=== PATIENT | male | born 1950 | race African-American/Black ===

== ENCOUNTER 2017-01-09 12:15 | Inpatient (IN) | payer SELFPAY ==
[2017-01-09] MEDS ORDERED: NITROGLYCERIN 0.4 MG/TAB 25 TAB/BOTTLE ONE ×2 (12:42→14:09)
[2017-01-09 13:04] LABS: ABSOLUTE EOSINOPHILS # (AUTO) 0.3 10^3/uL (0.0-0.6); ABSOLUTE LYMPHOCYTES (AUTO) 2.3 10^3/uL (0.5-4.7); ABSOLUTE MONOCYTES (AUTO) 0.3 10^3/uL (0.1-1.4); ABSOLUTE NEUT (AUTO) 1.7 10^3/uL (1.7-8.2); BASOPHILS % (AUTO) 1.1 % (0-2); EOSINOPHILS % (AUTO) 6.9 % (0-6); HEMATOCRIT 53.8 % (37.9-51.0); HEMOGLOBIN 17.8 g/dL (13.5-17.0); HGB HCT DIFFERENCE -0.4; LYMPHOCYTES % (AUTO) 48.7 % (13-45); MEAN CORPUSCULAR HEMOGLOBIN 28.4 pg (27.0-33.4); MEAN CORPUSCULAR HGB CONC 33.1 g/dL (32.0-36.0); MEAN CORPUSCULAR VOLUME 86 fl (80-97); MONOCYTES % (AUTO) 7.5 % (3-13); RED BLOOD COUNT 6.27 10^6/uL (4.35-5.55); RED CELL DISTRIBUTION WIDTH 14.7 % (11.5-14.0); SEGMENTED NEUTROPHILS % (AUTO) 35.8 % (42-78); WHITE BLOOD COUNT 4.6 10^3/uL (4.0-10.5)
[2017-01-09] MEDS ORDERED: NITROGLYCERIN 50 MG/D5W 250 ML IV PRN (13:10)
--- NOTE | 2017-01-09 13:17 | RADIOLOGY REPORT (SQ) ---
EXAM DESCRIPTION: CHEST SINGLE VIEW COMPLETED DATE/TIME: 01/09/2017 1:02 pm REASON FOR STUDY: CP COMPARISON: 02/07/2016. NUMBER OF VIEWS: One view. TECHNIQUE: Single frontal radiographic view of the chest acquired. LIMITATIONS: None. FINDINGS: LUNGS AND PLEURA: No opacities, masses or pneumothorax. No pleural effusion. MEDIASTINUM AND HILAR STRUCTURES: No masses. Contour normal. HEART AND VASCULAR STRUCTURES: Heart enlarged without failure. Normal vasculature. BONES: No acute findings. HARDWARE: Defibrillator. Sternotomy wires and coronary bypass markers. OTHER: No other significant finding. IMPRESSION: HEART ENLARGED WITHOUT FAILURE. NO CHANGE. TECHNICAL DOCUMENTATION: JOB ID: [id number] [employer]- All Rights Reserved
[2017-01-09 13:22] LABS: ALANINE AMINOTRANSFERASE 32 U/L (21-72); ALBUMIN 4.7 g/dL (3.5-5.0); ALKALINE PHOSPHATASE 73 U/L (38-126); ANION GAP 12 (5-19); ASPARTATE AMINO TRANSFERASE 24 U/L (17-59); BILIRUBIN,DIRECT 0.4 mg/dL (0.0-0.4); BILIRUBIN,TOTAL 0.9 mg/dL (0.2-1.3); BLOOD UREA NITROGEN 12 mg/dL (7-20); CALCIUM 9.4 mg/dL (8.4-10.2); CARBON DIOXIDE 21 mmol/L (22-30); CHLORIDE 107 mmol/L (98-107); CREATINE KINASE 192 U/L (55-170); CREATININE RESULT 1.31 mg/dL (0.52-1.25); GLUCOSE 99 mg/dL (75-110); POTASSIUM 4.5 mmol/L (3.6-5.0); TOTAL PROTEIN 8.5 g/dL (6.3-8.2)
[2017-01-09 13:34] LABS: CREATINE KINASE MB 2.83 ng/mL (<4.55); TROPONIN I 0.027 ng/mL
[2017-01-09 13:35] LABS: ARTERIAL BLOOD BASE EXCESS -2.1 mmol/L; ARTERIAL BLOOD O2 SATURATION 97.7 % (94-98)
[2017-01-09 13:53] LABS: THYROID STIMULATING HORMONE 2.4 uIU/mL (0.47-4.68)
[2017-01-09] MEDS ORDERED: METOPROLOL TARTRATE PF/INJ 5 MG/5 ML SDV IV ONE (14:07)
[2017-01-09] MEDS ORDERED: ASPIRIN 81 MG TABLET, CHEWABLE PO ONE (14:30)
[2017-01-09] MEDS ORDERED: CARVEDILOL 12.5 MG TABLET PO ONE (15:00)
[2017-01-09] MEDS ORDERED: AMLODIPINE BESYLATE 10 MG TABLET PO ONE (15:00)
[2017-01-09] MEDS ORDERED: ISOSORB DINIT/HYDRALAZINE HCL 20-37.5 MG TABLET PO ONE (15:00)
[2017-01-09] MEDS ORDERED: VALSARTAN 160 MG TABLET PO ONE (15:00)
[2017-01-09] MEDS: LANSOPRAZOLE 30 MG TAB.RAP.DR PO SCH (17:29)
[2017-01-09] MEDS ORDERED: ALBUTEROL SULFATE 0.083% NEB 2.5 MG/3 ML AMPUL NEB PRN ×2 (18:31→18:44)
--- NOTE | 2017-01-09 18:59 | EKG REPORT ---
SEVERITY:- ABNORMAL ECG - SINUS TACHYCARDIA VENTRICULAR PREMATURE COMPLEX RAJINDER, CONSIDER BIATRIAL ABNORMALITIES RBBB AND LPFB INFERIOR INFARCT, AGE INDETERMINATE : Confirmed by: Deepti Soto MD 09-Jan-2017 18:57:54
[2017-01-09] MEDS ORDERED: LISINOPRIL 10 MG TABLET PO ONE (19:00)
[2017-01-09] MEDS ORDERED: ASPIRIN 81 MG TABLET, ENT COATED PO ONE (19:00)
[2017-01-09] MEDS ORDERED: TICAGRELOR 90 MG TABLET PO ONE (19:00)
--- NOTE | 2017-01-09 19:34 | XCELERA REPORT ---
[address] [address] Transthoracic Echocardiogram Report Name: MALAIKA DIALLO JR Age: 66 yrs Gender: Male : 1950 Patient Status: Inpatient Patient Location: [id number]\S\336\[id number]\A Study Date: 01/09/2017 03:16 PM Height: 73 in Weight: 243 lb BSA: 2.3 m2 Procedure: A complete two-dimensional transthoracic echocardiogram was performed (2D, M-mode, spectral and color flow Doppler). The study was technically difficult with many images being suboptimal in quality. Reason For Study: CP, severe HTN Ordering Physician: ARIANA YBARRA Performed By: Tamica Hylton Interpretation Summary The Ejection Fraction estimate is 25-30% Left ventricular systolic function is severely reduced. There is moderate concentric left ventricular hypertrophy. The left ventricle is mildly dilated. Doppler measurements suggest pseudonormalized left ventricular relaxation, which is associated with grade II/IV or mild to moderate diastolic dysfunction There is severe global hypokinesis of the left ventricle. There is mid to distal anterior wall akinesis There is apical wall akinesis The right atrium is mildly dilated. The left atrium is severely dilated. There is a trace amount of mitral regurgitation There is no mitral valve stenosis. No aortic regurgitation is present. There is no aortic valve stenosis There is a trace or physiologic amount of tricuspid regurgitation Tricuspid regurgitation jet envelope not well defined to measure RV systolic pressure accurately. The aortic root is not well visualized but is probably normal size. The inferior vena cava appeared normal and decreased > 50% with respiration (RAP 5-10 mmHg) There is no pericardial effusion. MMode/2D Measurements \T\ Calculations RVDd: 3.1 cm LVIDd: 6.1 cm FS: 7.3 % Ao root diam: IVSd: 1.5 cm LVIDs: 5.7 cm EDV(Teich): 3.1 cm LVPWd: 1.3 cm 188.6 ml Ao root area: ESV(Teich): 158.4 ml 7.5 cm2 EF(Teich): 16.0 % LA dimension: 5.3 cm LVOT diam: LVLd ap4: 10.7 cm SV(MOD-sp4): 2.4 cm EDV(MOD-sp4): 77.0 ml LVOT area: 240.0 ml LVLs ap4: 9.9 cm 4.6 cm2 ESV(MOD-sp4): 163.0 ml EF(MOD-sp4): 32.1 % Doppler Measurements \T\ Calculations MV E max kenyatta: MV P1/2t max kenyatta: Ao V2 max: LV V1 max P.2 cm/sec 80.6 cm/sec 129.0 cm/sec 1.8 mmHg MV A max kenyatta: MV P1/2t: 45.6 msec Ao max PG: LV V1 max: 38.9 cm/sec MVA(P1/2t): 4.8 cm2 6.7 mmHg 67.5 cm/sec MV E/A: 2.1 MV dec slope: TJ(V,D): 2.4 cm2 517.7 cm/sec2 PA V2 max: 73.1 cm/sec PA max P.1 mmHg Left Ventricle The left ventricle is mildly dilated. There is moderate concentric left ventricular hypertrophy. Left ventricular systolic function is severely reduced. The Ejection Fraction estimate is 25-30%. Doppler measurements suggest pseudonormalized left ventricular relaxation, which is associated with grade II/IV or mild to moderate diastolic dysfunction. There is severe global hypokinesis of the left ventricle. There is mid to distal anterior wall akinesis. There is apical wall akinesis. Right Ventricle The right ventricle is grossly normal size. There is normal right ventricular wall thickness. The right ventricular systolic function is normal. Atria The right atrium is mildly dilated. The left atrium is severely dilated. Mitral Valve The mitral valve is grossly normal. There is no mitral valve stenosis. There is a trace amount of mitral regurgitation. Aortic Valve The aortic valve is grossly normal. There is no aortic valve stenosis. No aortic regurgitation is present. Tricuspid Valve The tricuspid valve is not well visualized, but is grossly normal. There is no tricuspid stenosis. There is a trace or physiologic amount of tricuspid regurgitation. Tricuspid regurgitation jet envelope not well defined to measure RV systolic pressure accurately. Pulmonic Valve The pulmonic valve is not well visualized. Great Vessels The aortic root is not well visualized but is probably normal size. The inferior vena cava appeared normal and decreased > 50% with respiration (RAP 5-10 mmHg). Effusions There is no pericardial effusion. Incidental Findings Pacemaker wire noted. : ARIANA YBARRA > Ariana Ybarra
[2017-01-09 21:07] LABS: CREATINE KINASE MB 2.75 ng/mL (<4.55)
[2017-01-09 21:12] LABS: TROPONIN I 0.131 ng/mL
[2017-01-09] MEDS: ATORVASTATIN CALCIUM 80 MG TABLET PO SCH (21:32)
[2017-01-09] MEDS: ISOSORB DINIT/HYDRALAZINE HCL 20-37.5 MG TABLET PO SCH (21:32)
[2017-01-09] MEDS: CARVEDILOL 12.5 MG TABLET PO SCH (21:33)
--- NOTE | 2017-01-09 21:42 | PDOC H&P ---
History of Present Illness Admission Date/PCP: 01/09/17 12:15 ROSALBA CARROLL MD History of Present Illness: Patient 66-year-old male with a known history of ischemic cardiomyopathy chronic chronic systolic heart failure, coronary artery disease status post multiple stents insertion, CABG AICD pacemaker placement he came to the office today because of chest pain and shortness of breath.He has no medical insurance and is not very compliant with care, in the office a 12-lead EKG was done it showed sinus rhythm with old inferior wall OR, right bundle branch block , there is no change from 2015 EKG he was admitted directly to the hospital for management Past Medical History Cardiac Medical History: Reports: Congestive Heart Failure, Coronary Artery Disease, Myocardial Infarction - six, Hyperlipidema, Hypertension Pulmonary Medical History: Reports: Asthma, Bronchitis, Chronic Obstructive Pulmonary Disease (COPD), Pneumonia Neurological Medical History: Denies: Seizures Endocrine Medical History: Reports: Diabetes Mellitus Type 2 GI Medical History: Reports: Gastroesophageal Reflux Disease Musculoskeltal Medical History: Denies: Arthritis Psychiatric Medical History: Denies: Depression Hematology: Denies: Anemia Past Surgical History Past Surgical History: Reports: Cardiac Catheterization, Coronary Artery Bypass Graft - x 3, Coronary Stent - x 8, Pacemaker, Tonsillectomy Social History Smoking Status: Never Smoker Frequency of Alcohol Use: None Hx Recreational Drug Use: No Hx Prescription Drug Abuse: No - Advance Directive Resuscitation Status: Full Code Family History Family History: Reviewed & Not Pertinent. denies: CAD Parental Family History Reviewed: Yes Children Family History Reviewed: Yes Sibling(s) Family History Reviewed.: Yes Medication/Allergy Home Medications: Albuterol Sulfate [Albuterol Sulfate 2.5mg/3 mL] 1 vial IH Q4 PRN 01/09/17 Aspirin [Aspirin EC] 81 mg PO DAILY 01/09/17 Carvedilol [Coreg 25 mg Tablet] 25 mg PO Q12 01/09/17 Lisinopril [Prinivil 40 mg Tablet] 40 mg PO DAILY 01/09/17 Nitroglycerin [Nitrostat] 0.4 mg SL PRN PRN 01/09/17 Ranolazine [Ranexa] 1,000 mg PO BID 01/09/17 Ticagrelor [Brilinta 90 mg Tablet] 90 mg PO BID 01/09/17 Allergies/Adverse Reactions: Iodinated Contrast- Oral and IV Dye [IV Dye, Iodine Containing] Allergy ( Verified 01/27/15 06:29) Review of Systems Constitutional: PRESENT: as per HPI Cardiovascular: PRESENT: chest pain, dyspnea on exertion, edema Respiratory: PRESENT: dyspnea Gastrointestinal: PRESENT: nausea Neurological: PRESENT: weakness Physical Exam Vital Signs: Temp Pulse Resp BP Pulse Ox 98.3 F 69 16 122/75 98 01/09/17 19:52 01/09/17 21:00 01/09/17 19:52 01/09/17 21:00 01/09/17 19:52 Intake & Output 01/08/17 01/09/17 01/10/17 06:59 06:59 06:59 Intake Total 300 Output Total 600 Balance -300 Weight 110.4 kg General appearance: PRESENT: severe distress Eye exam: PRESENT: PERRLA Respiratory exam: PRESENT: other - Diminished air entry Cardiovascular exam: PRESENT: +S1, +S2 GI/Abdominal exam: PRESENT: soft Neurological exam: PRESENT: alert, CN II-XII grossly intact Results Laboratory Results: 01/09/17 12:50 01/09/17 12:50 01/09/17 01/09/17 01/09/17 12:50 12:50 12:50 WBC 4.6 RBC 6.27 H Hgb 17.8 H Hct 53.8 H MCV 86 MCH 28.4 MCHC 33.1 RDW 14.7 H Plt Count 215 Seg Neutrophils % 35.8 L Lymphocytes % 48.7 H Monocytes % 7.5 Eosinophils % 6.9 H Basophils % 1.1 Absolute Neutrophils 1.7 Absolute Lymphocytes 2.3 Absolute Monocytes 0.3 Absolute Eosinophils 0.3 Absolute Basophils 0.0 Carbonic Acid HCO3/H2CO3 Ratio ABG pH ABG pCO2 ABG pO2 ABG HCO3 ABG O2 Saturation ABG Base Excess FiO2 Sodium 140.0 Potassium 4.5 Chloride 107 Carbon Dioxide 21 L Anion Gap 12 BUN 12 Creatinine 1.31 H Est GFR ( Amer) > 60 Est GFR (Non-Af Amer) 55 L Glucose 99 Calcium 9.4 Total Bilirubin 0.9 AST 24 ALT 32 Alkaline Phosphatase 73 Total Protein 8.5 H Albumin 4.7 TSH 2.40 Free T4 1.18 01/09/17 13:17 WBC RBC Hgb Hct MCV MCH MCHC RDW Plt Count Seg Neutrophils % Lymphocytes % Monocytes % Eosinophils % Basophils % Absolute Neutrophils Absolute Lymphocytes Absolute Monocytes Absolute Eosinophils Absolute Basophils Carbonic Acid 1.08 HCO3/H2CO3 Ratio 20:1 ABG pH 7.40 ABG pCO2 35.9 ABG pO2 100.8 H ABG HCO3 21.8 ABG O2 Saturation 97.7 ABG Base Excess -2.1 FiO2 4L NC Sodium Potassium Chloride Carbon Dioxide Anion Gap BUN Creatinine Est GFR ( Amer) Est GFR (Non-Af Amer) Glucose Calcium Total Bilirubin AST ALT Alkaline Phosphatase Total Protein Albumin TSH Free T4 01/09/17 01/09/17 01/09/17 12:50 12:50 12:50 Creatine Kinase 192 H 188 H CK-MB (CK-2) 2.83 Troponin I 0.027 01/09/17 01/09/17 20:30 20:30 Creatine Kinase 147 CK-MB (CK-2) 2.75 Troponin I 0.131 Impressions: Chest X-Ray 01/09/17 00:00 IMPRESSION: HEART ENLARGED WITHOUT FAILURE. NO CHANGE. Assessment & Plan - Diagnosis (1) Hypertensive emergency Plan: The blood pressure is severely elevated with evidence of end organ failure, he will be started on IV nitroglycerin infusion (2) Chest pain Qualifiers: Chest pain type: unspecified Qualified Code(s): R07.9 - Chest pain, unspecified Is this a current diagnosis for this admission?: Yes (3) Coronary artery disease Qualifiers: Coronary Disease-Associated Artery/Lesion type: unspecified vessel or lesion type Associated angina: angina presence unspecified Is this a current diagnosis for this admission?: Yes (4) Type 2 diabetes mellitus Qualifiers: Diabetes mellitus complication status: with unspecified complications Diabetes mellitus intermediate designer insulin use: without half-way use Qualified Code(s): E11.8 - Type 2 diabetes mellitus with unspecified complications; Z79.4 - correction (current) use of insulin Is this a current diagnosis for this admission?: Yes
[2017-01-09] MEDS ORDERED: ATORVASTATIN CALCIUM 40 MG TABLET PO SCH (22:00)
[2017-01-09] MEDS: ENOXAPARIN SODIUM INJ 100 MG/1 ML DISP.SYRIN SUBCUT SCH (22:26)
[2017-01-10 05:41] LABS: CREATINE KINASE MB 2.48 ng/mL (<4.55); TROPONIN I 0.098 ng/mL
[2017-01-10] MEDS: LANSOPRAZOLE 30 MG TAB.RAP.DR PO SCH ×2 (06:15→16:07)
[2017-01-10] MEDS: ISOSORB DINIT/HYDRALAZINE HCL 20-37.5 MG TABLET PO SCH ×3 (06:16→21:56)
[2017-01-10] MEDS ORDERED: VALSARTAN 160 MG TABLET PO SCH (10:00)
[2017-01-10] MEDS: AMLODIPINE BESYLATE 10 MG TABLET PO SCH (10:20)
[2017-01-10] MEDS: LISINOPRIL 10 MG TABLET PO SCH (10:20)
[2017-01-10] MEDS: ASPIRIN 81 MG TABLET, ENT COATED PO SCH (10:21)
[2017-01-10] MEDS: ENOXAPARIN SODIUM INJ 100 MG/1 ML DISP.SYRIN SUBCUT SCH ×2 (10:22→21:57)
[2017-01-10] MEDS: CARVEDILOL 12.5 MG TABLET PO SCH ×2 (10:22→21:55)
[2017-01-10] MEDS: TICAGRELOR 90 MG TABLET PO SCH ×2 (10:46→17:16)
--- NOTE | 2017-01-10 13:38 | PDOC CONSULTATION ---
Consultation Consult Date: 01/09/17 Attending physician:: ROSALBA CARROLL Consult reason:: Chest discomfort and shortness of breath History of Present Illness Admission Date/PCP: 01/09/17 12:15 ROSALBA CARROLL MD Patient complains of: Shortness of breath and chest discomfort History of Present Illness: Placido is a 65-year-old male with past medical history of coronary artery disease and ischemic cardiomyopathy as well as hypertension, diabetes, and hyperlipidemia who presents with several hours of left-sided chest pain. He described as a dull, throbbing, aching pain. It was improved and eventually relieved by multiple doses of nitroglycerin. Nothing was noted to worsen the pain when it was present. He was admitted directly from the office primary clinician with above complaint. He was also noted to have severe hypertension with systolic over 200 mmHg. Patient was started on nitroglycerin sublingual and subsequently on nitroglycerin drip. I entered multiple antihypertensive medication to be given. Please see orders. He notes associated dyspnea as well as nausea without vomiting. Past Medical History Cardiac Medical History: Reports: Congestive Heart Failure, Coronary Artery Disease, Myocardial Infarction - six, Hyperlipidema, Hypertension Pulmonary Medical History: Reports: Asthma, Bronchitis, Chronic Obstructive Pulmonary Disease (COPD), Pneumonia Neurological Medical History: Denies: Seizures Endocrine Medical History: Reports: Diabetes Mellitus Type 2 GI Medical History: Reports: Gastroesophageal Reflux Disease Musculoskeltal Medical History: Denies: Arthritis Psychiatric Medical History: Denies: Depression Hematology: Denies: Anemia Past Surgical History Past Surgical History: Reports: Cardiac Catheterization, Coronary Artery Bypass Graft - x 3, Coronary Stent - x 8, Pacemaker, Tonsillectomy Social History Information Source: Patient Smoking Status: Never Smoker Frequency of Alcohol Use: None Hx Recreational Drug Use: No Hx Prescription Drug Abuse: No - Advance Directive Resuscitation Status: Full Code Surrogate healthcare decision maker:: Patient spouse is the surrogate decision-maker Family History Family History: CAD, Hypertension Parental Family History Reviewed: Yes Children Family History Reviewed: Yes Sibling(s) Family History Reviewed.: Yes Medication/Allergy Home Medications: Albuterol Sulfate [Albuterol Sulfate 2.5mg/3 mL] 1 vial IH Q4 PRN 01/09/17 Aspirin [Aspirin EC] 81 mg PO DAILY 01/09/17 Carvedilol [Coreg 25 mg Tablet] 25 mg PO Q12 01/09/17 Lisinopril [Prinivil 40 mg Tablet] 40 mg PO DAILY 01/09/17 Nitroglycerin [Nitrostat] 0.4 mg SL PRN PRN 01/09/17 Ranolazine [Ranexa] 1,000 mg PO BID 01/09/17 Ticagrelor [Brilinta 90 mg Tablet] 90 mg PO BID 01/09/17 Allergies/Adverse Reactions: Iodinated Contrast- Oral and IV Dye [IV Dye, Iodine Containing] Allergy ( Verified 01/27/15 06:29) Review of Systems Review of Systems: Please see history of present illness and past medical history as wall. Constitutional: No fever or chills reported. Head : No recent chronic headaches, recent head injury. Eyes: No recent eye pain, diplopia, redness, discharge, acute visual changes. Ears: No recent chronic ear pain, acute hearing loss, ear discharge. Oral cavity: No recent ulcerations, bleeding, oral cavity discomfort. Neck: No recent acute neck pain reported. Hematologic: No recent easy bruising or bleeding or hematologic malignancy reported. Lymphatic: No recent lymphatic malignancy, chronic lymphadenopathy reported yet Cardiovascular system review: See history of present illness. Respiratory system review: No recent chronic cough, hemoptysis, blood clots in the lungs reported. Mild Shortness of breath on exertion Gastrointestinal system review: Negative for any recent acute or chronic abdominal pain, hematemesis, melena, recent change in bowel habits. Genitourinary system review: No recent acute or chronic hematuria, flank pain, UTI etc. reported. Skin system review: Negative for any recent abnormal bruising, no rash, no pruritus reported. Neurologic: No prior history of strokes, mini strokes, seizure disorder. Psychologic: No history of major psychosis or major depression reported. Musculoskeletal: Minor aches and pains reported. No acute joint swelling reported. Endocrine: No recent polyuria, polydipsia, recent heat or cold intolerance. Physical Exam Vital Signs: Temp Pulse Resp BP Pulse Ox 98.2 F 76 22 H 177/105 H 98 01/09/17 14:00 01/09/17 16:18 01/09/17 14:00 01/09/17 16:18 01/09/17 14:00 Intake & Output 01/08/17 01/09/17 01/10/17 06:59 06:59 06:59 Intake Total 300 Output Total 600 Balance -300 Weight 110.4 kg Exam: GENERAL: well-nourished and in no acute distress. Alert and oriented x3 HEAD: Atraumatic, normocephalic. EYES: Pupils equal round and reactive to light, extraocular movements intact, sclera anicteric, conjunctiva are normal. ENT: TMs normal, nares patent, oropharynx clear without exudates. Moist mucous membranes. No oral ulcerations or bleeding gums noted NECK: supple without lymphadenopathy. Trachea is central. No cervical or axillary lymphadenopathy noted. Carotids are 2+, JVD WNL LUNGS: Respiration seems nonlabored, no significant accessory muscle action noted. Bilateral fine basal crackles noted. No wheezes rales or rhonchi noted. No significant dullness noted on percussion. CHEST: Palpation of the chest wall shows no significant chest wall tenderness. No other significant abnormalities noted. HEART: [place] PROSTHODONTIST, No PSH, 1/6 SHAYLEE aortic area, 1/6 alcantar systolic murmur mitral area, no rubs, positive S3 gallops. ABDOMEN: Soft, no significant tenderness appreciated, normoactive bowel sounds. No guarding, no rebound. No rigidity noted . No masses appreciated. EXTREMITIES: Pedal pulses are 1-2+, no calf tenderness noted. No clubbing or cyanosis.trace to 1+ pedal edema noted NEUROLOGICAL: Focused neurological exam showed no significant neurologic deficit. Normal speech, no focal weakness appreciated. PSYCH: Normal mood, normal affect. Judgment and insight within normal limits. SKIN: No significant ecchymosis, rash, ulcerations or signs of pruritus noted. MUSCULOSKELETAL EXAM: No significant joint swelling noted. Results Laboratory Results: 01/09/17 12:50 01/09/17 12:50 01/09/17 01/09/17 01/09/17 12:50 12:50 12:50 WBC 4.6 RBC 6.27 H Hgb 17.8 H Hct 53.8 H MCV 86 MCH 28.4 MCHC 33.1 RDW 14.7 H Plt Count 215 Seg Neutrophils % 35.8 L Lymphocytes % 48.7 H Monocytes % 7.5 Eosinophils % 6.9 H Basophils % 1.1 Absolute Neutrophils 1.7 Absolute Lymphocytes 2.3 Absolute Monocytes 0.3 Absolute Eosinophils 0.3 Absolute Basophils 0.0 Carbonic Acid HCO3/H2CO3 Ratio ABG pH ABG pCO2 ABG pO2 ABG HCO3 ABG O2 Saturation ABG Base Excess FiO2 Sodium 140.0 Potassium 4.5 Chloride 107 Carbon Dioxide 21 L Anion Gap 12 BUN 12 Creatinine 1.31 H Est GFR ( Amer) > 60 Est GFR (Non-Af Amer) 55 L Glucose 99 Calcium 9.4 Total Bilirubin 0.9 AST 24 ALT 32 Alkaline Phosphatase 73 Total Protein 8.5 H Albumin 4.7 TSH 2.40 Free T4 1.18 01/09/17 13:17 WBC RBC Hgb Hct MCV MCH MCHC RDW Plt Count Seg Neutrophils % Lymphocytes % Monocytes % Eosinophils % Basophils % Absolute Neutrophils Absolute Lymphocytes Absolute Monocytes Absolute Eosinophils Absolute Basophils Carbonic Acid 1.08 HCO3/H2CO3 Ratio 20:1 ABG pH 7.40 ABG pCO2 35.9 ABG pO2 100.8 H ABG HCO3 21.8 ABG O2 Saturation 97.7 ABG Base Excess -2.1 FiO2 4L NC Sodium Potassium Chloride Carbon Dioxide Anion Gap BUN Creatinine Est GFR ( Amer) Est GFR (Non-Af Amer) Glucose Calcium Total Bilirubin AST ALT Alkaline Phosphatase Total Protein Albumin TSH Free T4 01/09/17 01/09/17 01/09/17 12:50 12:50 12:50 Creatine Kinase 192 H 188 H CK-MB (CK-2) 2.83 Troponin I 0.027 EKG Comments: Twelve-lead EKG shows sinus rhythm, right bundle branch block pattern, inferior Q waves suggestive of prior inferior myocardial infarction and occasional VPCs. EKG is felt to be relatively unchanged. Impressions: Chest X-Ray 01/09/17 00:00 IMPRESSION: HEART ENLARGED WITHOUT FAILURE. NO CHANGE. Assessment & Plan - Diagnosis (1) Hypertensive emergency Is this a current diagnosis for this admission?: Yes (2) Chest pain Qualifiers: Chest pain type: unspecified Qualified Code(s): R07.9 - Chest pain, unspecified Is this a current diagnosis for this admission?: Yes (3) Coronary artery disease Qualifiers: Coronary Disease-Associated Artery/Lesion type: unspecified vessel or lesion type Associated angina: angina presence unspecified Is this a current diagnosis for this admission?: Yes (4) Type 2 diabetes mellitus Qualifiers: Diabetes mellitus complication status: with unspecified complications Diabetes mellitus residential insulin use: without greeter guest services use Qualified Code(s): E11.8 - Type 2 diabetes mellitus with unspecified complications; Z79.4 - group home (current) use of insulin Is this a current diagnosis for this admission?: Yes (5) Cardiac defibrillator in situ Is this a current diagnosis for this admission?: Yes (6) Congestive heart failure Qualifiers: Congestive heart failure type: combined Congestive heart failure chronicity: acute on chronic Qualified Code(s): I50.43 - Acute on chronic combined systolic (congestive) and diastolic (congestive) heart failure Is this a current diagnosis for this admission?: Yes - Notes Notes: Hypertensive emergency: Patient was noted to have severe hypertension along with precipitation of chest pain. Patient placed on nitroglycerin drip. Multiple antihypertensives added. After several hours, blood pressure came to the normal range. Nitroglycerin drip was ordered to be discontinued. Coronary artery disease: Patient has significant CAD and is status post CABG and also multiple stent placement. Patient's medical regimen will be optimized. Patient will benefit from a nuclear stress test prior to discharge and this will be scheduled. This is needed because of presentation with chest pain and subsequent positive cardiac enzymes elevation. Congestive heart failure: This is related to systolic plus diastolic dysfunction. A stat echo performed was reviewed. Will recommend entresto therapy, beta-betito therapy and diuretics therapy. Patient will also benefit from salt and fluid restriction. Status post defibrillator placement: Patient claims defibrillator was placed in [place]. Last ICD battery change out was 3 years ago. Currently defibrillator seems to be functioning normally. Chest pain: Patient subsequently noted to have high troponin I. Patient will benefit from a ischemia workup. Chest pain probably precipitated by severe hypertension. Non-STEMI: Based on enzyme elevation and symptoms of chest discomfort patient seems to have sustained non-STEMI. Could have been precipitated by severe hypertension. Diabetes: Recommend good control of blood sugar. However should avoid any hypoglycemia. Patient being expertly managed by primary care M.D. - Time Time Spent: 50 to 70 Minutes - CODE STATUS was discussed, patient remains full code. Surrogate decision-maker unchanged. Multiple medical problems were addressed. More than 50% of the time spent coordinating care, discussing management plans with involved caregivers. Management plans discussed with involved personnels. Medical decision making was of moderate to high complexity , patient's has multiple comorbidities. Medications reviewed and adjusted accordingly: Yes
--- NOTE | 2017-01-10 13:41 | PDOC PROGRESS REPORT ---
Subjective Progress Note for:: 01/10/17 Subjective:: No chest pain or difficulty with breathing. No dizziness, headache, nausea or vomiting. No fever or chills. Physical Exam Vital Signs: Temp Pulse Resp BP Pulse Ox 98.0 F 79 16 122/79 100 01/10/17 08:11 01/10/17 08:11 01/10/17 08:11 01/10/17 08:11 01/10/17 08:11 Intake & Output 01/09/17 01/10/17 01/11/17 06:59 06:59 06:59 Intake Total 927 Output Total 600 Balance 327 Weight 109.3 kg General appearance: PRESENT: no acute distress, cooperative Head exam: PRESENT: atraumatic, normocephalic Eye exam: PRESENT: EOMI, PERRLA Mouth exam: PRESENT: moist Neck exam: PRESENT: full ROM. ABSENT: carotid bruit, JVD, lymphadenopathy, thyromegaly Respiratory exam: PRESENT: clear to auscultation yuly Cardiovascular exam: PRESENT: RRR. ABSENT: diastolic murmur, rubs, systolic murmur GI/Abdominal exam: PRESENT: normal bowel sounds, soft. ABSENT: distended, guarding, mass, organolmegaly, rebound, tenderness Extremities exam: ABSENT: pedal edema Musculoskeletal exam: PRESENT: deformity - related to joint arthritis involvement Neurological exam: PRESENT: alert, awake, oriented to person, oriented to place , oriented to time, oriented to situation, CN II-XII grossly intact. ABSENT: motor sensory deficit Psychiatric exam: PRESENT: appropriate affect, normal mood. ABSENT: homicidal ideation, suicidal ideation Skin exam: PRESENT: dry, intact, warm. ABSENT: cyanosis, rash Results Laboratory Results: 01/09/17 12:50 01/09/17 12:50 01/09/17 01/09/17 01/09/17 12:50 12:50 13:17 WBC 4.6 RBC 6.27 H Hgb 17.8 H Hct 53.8 H MCV 86 MCH 28.4 MCHC 33.1 RDW 14.7 H Plt Count 215 Seg Neutrophils % 35.8 L Lymphocytes % 48.7 H Monocytes % 7.5 Eosinophils % 6.9 H Basophils % 1.1 Absolute Neutrophils 1.7 Absolute Lymphocytes 2.3 Absolute Monocytes 0.3 Absolute Eosinophils 0.3 Absolute Basophils 0.0 Carbonic Acid 1.08 HCO3/H2CO3 Ratio 20:1 ABG pH 7.40 ABG pCO2 35.9 ABG pO2 100.8 H ABG HCO3 21.8 ABG O2 Saturation 97.7 ABG Base Excess -2.1 FiO2 4L NC TSH 2.40 Free T4 1.18 01/09/17 01/09/17 01/09/17 12:50 12:50 12:50 Creatine Kinase 192 H 188 H CK-MB (CK-2) 2.83 Troponin I 0.027 01/09/17 01/09/17 01/10/17 20:30 20:30 05:00 Creatine Kinase 147 159 CK-MB (CK-2) 2.75 Troponin I 0.131 01/10/17 05:00 Creatine Kinase CK-MB (CK-2) 2.48 Troponin I 0.098 Impressions: Chest X-Ray 01/09/17 00:00 IMPRESSION: HEART ENLARGED WITHOUT FAILURE. NO CHANGE. Assessment & Plan - Diagnosis (1) Chest pain Qualifiers: Chest pain type: unspecified Qualified Code(s): R07.9 - Chest pain, unspecified Is this a current diagnosis for this admission?: YesPlan: See covering attending physician orders. (2) Hypertensive emergency Is this a current diagnosis for this admission?: YesPlan: See covering attending physician orders. (3) Coronary artery disease Qualifiers: Coronary Disease-Associated Artery/Lesion type: unspecified vessel or lesion type Associated angina: angina presence unspecified Is this a current diagnosis for this admission?: YesPlan: See covering attending physician orders. (4) Type 2 diabetes mellitus Qualifiers: Diabetes mellitus complication status: with unspecified complications Diabetes mellitus salvage determiner insulin use: without senior living use Qualified Code(s): E11.8 - Type 2 diabetes mellitus with unspecified complications Is this a current diagnosis for this admission?: YesPlan: See covering attending physician orders. - Time Time Spent with patient: 25-34 minutes Medications reviewed and adjusted accordingly: Yes Anticipated discharge: Home Within: Other - Inpatient Certification Medical Necessity: Need Close Monitoring Due to Risk of Patient Decompensation, Need For IV Fluids, Need For Continuous Telemetry Monitoring, Risk of Complication if Not Cared For in Hospital Post Hospital Care: D/C Regulatory Compliance Coordinator Documentation - Plan Summary Plan Summary: See covering attending physician orders.
[2017-01-10] MEDS ORDERED: INSULIN LISPRO 100 UNIT/ML 3 ML VIAL SUBCUT PRN (13:46)
[2017-01-10] MEDS ORDERED: DEXTROSE 40% GEL 15 GM TUBE PO PRN ×2 (13:46)
[2017-01-10] MEDS ORDERED: GLUCAGON,HUMAN RECOMB 1 MG INJ IM PRN (13:46)
[2017-01-10] MEDS ORDERED: DEXTROSE 50%-WATER 25 GM/50 ML DISP.SYRIN IV PRN ×2 (13:46)
--- NOTE | 2017-01-10 15:14 | PDOC PROGRESS REPORT ---
Subjective Progress Note for:: 01/10/17 Subjective:: Patient seems to be doing better with gradual improvement. Pt is denying any chest arm or neck discomfort. Patient denying any PND, orthopnea. Patient denied any sustained palpitations, dizziness, syncope, near syncope. Patient denying any fever chills. Patient denying any other significant discomfort. Patient is maintaining sinus rhythm with ventricular paced beats. Review of systems: Rest review of systems negative. Medications: Medications have been reviewed. Physical Exam Vital Signs: Temp Pulse Resp BP Pulse Ox 98.0 F 79 16 122/79 100 01/10/17 08:11 01/10/17 08:11 01/10/17 08:11 01/10/17 08:11 01/10/17 08:11 Intake & Output 01/09/17 01/10/17 01/11/17 06:59 06:59 06:59 Intake Total 927 Output Total 600 Balance 327 Weight 109.3 kg Results Laboratory Results: 01/09/17 12:50 01/09/17 12:50 01/09/17 01/09/17 01/09/17 12:50 12:50 12:50 Creatine Kinase 192 H 188 H CK-MB (CK-2) 2.83 Troponin I 0.027 01/09/17 01/09/17 01/10/17 20:30 20:30 05:00 Creatine Kinase 147 159 CK-MB (CK-2) 2.75 Troponin I 0.131 01/10/17 05:00 Creatine Kinase CK-MB (CK-2) 2.48 Troponin I 0.098 EKG Comments: Showed sinus rhythm with right bundle branch block pattern, evidence of prior inferior myocardial infarction occasional VPCs noted Impressions: Chest X-Ray 01/09/17 00:00 IMPRESSION: HEART ENLARGED WITHOUT FAILURE. NO CHANGE. Assessment & Plan - Diagnosis (1) Hypertensive emergency Is this a current diagnosis for this admission?: Yes (2) Chest pain Qualifiers: Chest pain type: unspecified Qualified Code(s): R07.9 - Chest pain, unspecified Is this a current diagnosis for this admission?: Yes (3) Coronary artery disease Qualifiers: Coronary Disease-Associated Artery/Lesion type: unspecified vessel or lesion type Associated angina: angina presence unspecified Is this a current diagnosis for this admission?: Yes (4) Type 2 diabetes mellitus Qualifiers: Diabetes mellitus complication status: with unspecified complications Diabetes mellitus termite treater helper insulin use: without termite treater helper use Qualified Code(s): E11.8 - Type 2 diabetes mellitus with unspecified complications; Z79.4 - truck terminal manager (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) 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 Currently blood pressure under satisfactory control. Coronary artery disease: Patient has significant CAD and is status post CABG and also multiple stent placement. Patient's medical regimen will be optimized. Patient will benefit from a nuclear stress test prior to discharge and this will be scheduled. This is needed because of presentation with chest pain and subsequent positive cardiac enzymes elevation. Congestive heart failure: This seems clinically compensated by exam. This is related to systolic plus diastolic dysfunction. Echocardiogram shows systolic dysfunction as well as diastolic dysfunction without any significant valvular abnormalities.. Will recommend entresto therapy, beta-betito therapy and diuretics therapy. Patient will also benefit from salt and fluid restriction. Entresto therapy not to be started at this time as there is some concern about affordability by the patient. Status post defibrillator placement: Patient claims defibrillator was placed in [place]. Last ICD battery change out was 3 years ago. Currently defibrillator seems to be functioning normally. Chest pain: Currently chest pain-free. Patient subsequently noted to have high troponin I. Patient will benefit from a ischemia workup. Chest pain probably precipitated by severe hypertension. Non-STEMI: Based on enzyme elevation and symptoms of chest discomfort patient seems to have sustained non-STEMI. Could have been precipitated by severe hypertension. Diabetes: Recommend good control of blood sugar. However should avoid any hypoglycemia. Patient being expertly managed by primary care M.D. - Time Time with patient: Greater than 35 minutes - CODE STATUS was discussed, patient remains full code. Surrogate decision-maker unchanged. Multiple medical problems were addressed. More than 50% of the time spent coordinating care, discussing management plans with involved caregivers. Management plans discussed with involved personnels. Medical decision making was of moderate to high complexity, patient's has multiple comorbidities. Medications reviewed and adjusted accordingly: Yes
[2017-01-10] MEDS: ATORVASTATIN CALCIUM 80 MG TABLET PO SCH (21:57)
[2017-01-11] MEDS: ISOSORB DINIT/HYDRALAZINE HCL 20-37.5 MG TABLET PO SCH ×3 (06:03→23:00)
[2017-01-11] MEDS: LANSOPRAZOLE 30 MG TAB.RAP.DR PO SCH ×2 (06:03→16:50)
[2017-01-11 06:14] LABS: ABSOLUTE BASOPHILS # (AUTO) 0.1 10^3/uL (0.0-0.2); ABSOLUTE EOSINOPHILS # (AUTO) 0.2 10^3/uL (0.0-0.6); ABSOLUTE LYMPHOCYTES (AUTO) 1.5 10^3/uL (0.5-4.7); ABSOLUTE MONOCYTES (AUTO) 0.6 10^3/uL (0.1-1.4); ABSOLUTE NEUT (AUTO) 2.7 10^3/uL (1.7-8.2); BASOPHILS % (AUTO) 1.2 % (0-2); EOSINOPHILS % (AUTO) 4.8 % (0-6); HEMATOCRIT 49.3 % (37.9-51.0); HEMOGLOBIN 16.3 g/dL (13.5-17.0); HGB HCT DIFFERENCE -0.4; LYMPHOCYTES % (AUTO) 29.4 % (13-45); MEAN CORPUSCULAR HEMOGLOBIN 28.7 pg (27.0-33.4); MEAN CORPUSCULAR HGB CONC 33.1 g/dL (32.0-36.0); MEAN CORPUSCULAR VOLUME 87 fl (80-97); RED BLOOD COUNT 5.69 10^6/uL (4.35-5.55); RED CELL DISTRIBUTION WIDTH 14.5 % (11.5-14.0); SEGMENTED NEUTROPHILS % (AUTO) 53.6 % (42-78); WHITE BLOOD COUNT 5.1 10^3/uL (4.0-10.5)
[2017-01-11 06:27] LABS: ANION GAP 12 (5-19); BLOOD UREA NITROGEN 19 mg/dL (7-20); CALCIUM 9.4 mg/dL (8.4-10.2); CARBON DIOXIDE 23 mmol/L (22-30); CHLORIDE 107 mmol/L (98-107); CREATINE KINASE 116 U/L (55-170); CREATININE RESULT 1.46 mg/dL (0.52-1.25); Direct HDL 46 mg/dL (>40); GLUCOSE 102 mg/dL (75-110); POTASSIUM 4.3 mmol/L (3.6-5.0); SODIUM 142.1 mmol/L (137-145); TRIGLYCERIDES 124 mg/dL (<150)
[2017-01-11 06:38] LABS: DIRECT LDL 159 mg/dL (<100)
[2017-01-11 06:39] LABS: CREATINE KINASE MB 1.75 ng/mL (<4.55); TROPONIN I 0.071 ng/mL
[2017-01-11] MEDS: ENOXAPARIN SODIUM INJ 100 MG/1 ML DISP.SYRIN SUBCUT SCH ×2 (10:25→23:00)
[2017-01-11] MEDS: CARVEDILOL 12.5 MG TABLET PO SCH ×2 (10:29→23:04)
[2017-01-11] MEDS: ASPIRIN 81 MG TABLET, ENT COATED PO SCH (10:30)
[2017-01-11] MEDS: AMLODIPINE BESYLATE 10 MG TABLET PO SCH (10:30)
[2017-01-11] MEDS: LISINOPRIL 10 MG TABLET PO SCH (10:30)
[2017-01-11] MEDS: TICAGRELOR 90 MG TABLET PO SCH ×2 (11:43→17:58)
--- NOTE | 2017-01-11 13:15 | PDOC PROGRESS REPORT ---
Subjective Progress Note for:: 01/11/17 Subjective:: No chest pain or difficulty with breathing. No dizziness, headache, nausea or vomiting. No fever or chills. Physical Exam Vital Signs: Temp Pulse Resp BP Pulse Ox 98.0 F 63 16 139/73 H 100 01/11/17 11:40 01/11/17 11:40 01/11/17 11:40 01/11/17 11:40 01/11/17 11:40 Intake & Output 01/10/17 01/11/17 01/12/17 06:59 06:59 06:59 Intake Total 927 1080 350 Output Total 600 Balance 327 1080 350 Weight 109.3 kg 107.7 kg Physical Exam: General appearance: PRESENT: no acute distress, cooperative Head exam: PRESENT: atraumatic, normocephalic Eye exam: PRESENT: EOMI, PERRLA Mouth exam: PRESENT: moist Neck exam: PRESENT: full ROM. ABSENT: carotid bruit, JVD, lymphadenopathy, thyromegaly Respiratory exam: PRESENT: clear to auscultation yuly Cardiovascular exam: PRESENT: RRR. ABSENT: diastolic murmur, rubs, systolic murmur GI/Abdominal exam: PRESENT: normal bowel sounds, soft. ABSENT: distended, guarding, mass, organomegaly, rebound, tenderness Extremities exam: ABSENT: pedal edema Musculoskeletal exam: PRESENT: deformity - related to joint arthritis involvement Neurological exam: PRESENT: alert, awake, oriented to person, oriented to place , oriented to time, oriented to situation, CN II-XII grossly intact. ABSENT: motor sensory deficit Psychiatric exam: PRESENT: appropriate affect, normal mood. ABSENT: homicidal ideation, suicidal ideation Skin exam: PRESENT: dry, intact, warm. ABSENT: cyanosis, rash Results Laboratory Results: 01/11/17 06:02 01/11/17 06:02 01/11/17 01/11/17 06:02 06:02 WBC 5.1 RBC 5.69 H Hgb 16.3 Hct 49.3 MCV 87 MCH 28.7 MCHC 33.1 RDW 14.5 H Plt Count 164 Seg Neutrophils % 53.6 Lymphocytes % 29.4 Monocytes % 11.0 Eosinophils % 4.8 Basophils % 1.2 Absolute Neutrophils 2.7 Absolute Lymphocytes 1.5 Absolute Monocytes 0.6 Absolute Eosinophils 0.2 Absolute Basophils 0.1 Sodium 142.1 Potassium 4.3 Chloride 107 Carbon Dioxide 23 Anion Gap 12 BUN 19 Creatinine 1.46 H Est GFR ( Amer) 59 L Est GFR (Non-Af Amer) 49 L Glucose 102 Calcium 9.4 Triglycerides 124 Cholesterol 228.20 H LDL Cholesterol Direct 159 H VLDL Cholesterol 25.0 HDL Cholesterol 46 01/09/17 01/09/17 01/09/17 12:50 12:50 12:50 Creatine Kinase 192 H 188 H CK-MB (CK-2) 2.83 Troponin I 0.027 01/09/17 01/09/17 01/10/17 20:30 20:30 05:00 Creatine Kinase 147 159 CK-MB (CK-2) 2.75 Troponin I 0.131 01/10/17 01/11/17 01/11/17 05:00 06:02 06:02 Creatine Kinase 116 CK-MB (CK-2) 2.48 1.75 Troponin I 0.098 0.071 Impressions: Chest X-Ray 01/09/17 00:00 IMPRESSION: HEART ENLARGED WITHOUT FAILURE. NO CHANGE. Assessment & Plan - Diagnosis (1) Chest pain Qualifiers: Chest pain type: unspecified Qualified Code(s): R07.9 - Chest pain, unspecified Is this a current diagnosis for this admission?: Yes (2) Hypertensive emergency Is this a current diagnosis for this admission?: Yes (3) Coronary artery disease Qualifiers: Coronary Disease-Associated Artery/Lesion type: unspecified vessel or lesion type Associated angina: angina presence unspecified Is this a current diagnosis for this admission?: Yes (4) Type 2 diabetes mellitus Qualifiers: Diabetes mellitus complication status: with unspecified complications Diabetes mellitus intermediate accountant insulin use: without intermediate accountant use Qualified Code(s): E11.8 - Type 2 diabetes mellitus with unspecified complications; 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 Patient is schedule for pharmacologic stress test tomorrow. Continue all current medication management. - Time Time Spent with patient: 25-34 minutes Medications reviewed and adjusted accordingly: Yes Anticipated discharge: Home Within: Other - Inpatient Certification Medical Necessity: Need Close Monitoring Due to Risk of Patient Decompensation, Need For Continuous Telemetry Monitoring, Risk of Complication if Not Cared For in Hospital Post Hospital Care: D/C Cadastral Surveyor Documentation - Plan Summary Plan Summary: See covering attending physician orders.
--- NOTE | 2017-01-11 18:28 | PDOC PROGRESS REPORT ---
Subjective Progress Note for:: 01/11/17 Subjective:: Patient seems to be doing better with gradual improvement. Pt is denying any chest arm or neck discomfort. Patient denying any PND, orthopnea. Patient denied any sustained palpitations, dizziness, syncope, near syncope. Patient denying any fever chills. Patient denying any other significant discomfort. Patient is maintaining sinus rhythm with ventricular paced beats. Review of systems: Rest review of systems negative. Medications: Medications have been reviewed. Physical Exam Vital Signs: Temp Pulse Resp BP Pulse Ox 98.0 F 63 16 139/73 H 100 01/11/17 11:40 01/11/17 11:40 01/11/17 11:40 01/11/17 11:40 01/11/17 11:40 Intake & Output 01/10/17 01/11/17 01/12/17 06:59 06:59 06:59 Intake Total 927 1080 350 Output Total 600 Balance 327 1080 350 Weight 109.3 kg 107.7 kg Exam: GENERAL: well-nourished and in no acute distress. Alert and oriented x3 HEAD: Atraumatic, normocephalic. EYES: Pupils equal round and reactive to light, extraocular movements intact, sclera anicteric, conjunctiva are normal. ENT: TMs normal, nares patent, oropharynx clear without exudates. Moist mucous membranes. No oral ulcerations or bleeding gums noted NECK: supple without lymphadenopathy. Trachea is central. No cervical or axillary lymphadenopathy noted. Carotids are 2+, JVD 8-10 cm LUNGS: Respiration seems nonlabored, no significant accessory muscle action noted. Bibasilar fine crackles noted. No wheezes rales or rhonchi noted. No significant dullness noted on percussion. CHEST: Palpation of the chest wall shows no significant chest wall tenderness. No other significant abnormalities noted. HEART: [place] MECHANICAL EXPERT, No PSH, 1/6 SHAYLEE aortic area, 1/6 alcantar systolic murmur mitral area, no rubs, no gallops. ABDOMEN: Soft, no significant tenderness appreciated, normoactive bowel sounds. No guarding, no rebound. No rigidity noted . No masses appreciated. EXTREMITIES: Pedal pulses are 1-2+, no calf tenderness noted. No clubbing or cyanosis.trace to 1+ pedal edema noted NEUROLOGICAL: Focused neurological exam showed no significant neurologic deficit. Normal speech, no focal weakness appreciated. PSYCH: Normal mood, normal affect. Judgment and insight within normal limits. SKIN: No significant ecchymosis, rash, ulcerations or signs of pruritus noted. MUSCULOSKELETAL EXAM: No significant joint swelling noted. Results Laboratory Results: 01/11/17 06:02 01/11/17 06:02 01/11/17 01/11/17 06:02 06:02 WBC 5.1 RBC 5.69 H Hgb 16.3 Hct 49.3 MCV 87 MCH 28.7 MCHC 33.1 RDW 14.5 H Plt Count 164 Seg Neutrophils % 53.6 Lymphocytes % 29.4 Monocytes % 11.0 Eosinophils % 4.8 Basophils % 1.2 Absolute Neutrophils 2.7 Absolute Lymphocytes 1.5 Absolute Monocytes 0.6 Absolute Eosinophils 0.2 Absolute Basophils 0.1 Sodium 142.1 Potassium 4.3 Chloride 107 Carbon Dioxide 23 Anion Gap 12 BUN 19 Creatinine 1.46 H Est GFR ( Amer) 59 L Est GFR (Non-Af Amer) 49 L Glucose 102 Calcium 9.4 Triglycerides 124 Cholesterol 228.20 H LDL Cholesterol Direct 159 H VLDL Cholesterol 25.0 HDL Cholesterol 46 01/09/17 01/09/17 01/09/17 12:50 12:50 12:50 Creatine Kinase 192 H 188 H CK-MB (CK-2) 2.83 Troponin I 0.027 01/09/17 01/09/17 01/10/17 20:30 20:30 05:00 Creatine Kinase 147 159 CK-MB (CK-2) 2.75 Troponin I 0.131 01/10/17 01/11/17 01/11/17 05:00 06:02 06:02 Creatine Kinase 116 CK-MB (CK-2) 2.48 1.75 Troponin I 0.098 0.071 EKG Comments: Sinus rhythm. No sustained tachycardia or bradycardia arrhythmias noted. Impressions: Chest X-Ray 01/09/17 00:00 IMPRESSION: HEART ENLARGED WITHOUT FAILURE. NO CHANGE. Assessment & Plan - Diagnosis (1) NSTEMI (non-ST elevated myocardial infarction) Is this a current diagnosis for this admission?: Yes (2) Hypertensive emergency Is this a current diagnosis for this admission?: Yes (3) Chest pain Qualifiers: Chest pain type: unspecified Qualified Code(s): R07.9 - Chest pain, unspecified Is this a current diagnosis for this admission?: Yes (4) Coronary artery disease Qualifiers: Coronary Disease-Associated Artery/Lesion type: unspecified vessel or lesion type Associated angina: angina presence unspecified Is this a current diagnosis for this admission?: Yes (5) Type 2 diabetes mellitus Qualifiers: Diabetes mellitus complication status: with unspecified complications Diabetes mellitus assisted insulin use: without terminal system operator use Qualified Code(s): E11.8 - Type 2 diabetes mellitus with unspecified complications; Z79.4 - alf (current) use of insulin Is this a current diagnosis for this admission?: Yes (6) Cardiac defibrillator in situ Is this a current diagnosis for this admission?: Yes (7) Congestive heart failure Qualifiers: Congestive heart failure type: combined Congestive heart failure chronicity: acute on chronic Qualified Code(s): I50.43 - Acute on chronic combined systolic (congestive) and diastolic (congestive) heart failure Is this a current diagnosis for this admission?: Yes - Notes Notes: Non-STEMI: Based on enzyme elevation and symptoms of chest discomfort patient seems to have sustained non-STEMI. Could have been precipitated by severe hypertension. Cannot rule out component of ischemia. Patient to be scheduled for a nuclear stress test. Hypertensive emergency: Patient was noted to have severe hypertension on presentation along with precipitation of chest pain. Currently blood pressure under satisfactory control. Coronary artery disease: Patient has significant CAD and is status post CABG and also multiple stent placement. Patient's medical regimen will be optimized. Patient will benefit from a nuclear stress test prior to discharge and this will be scheduled. This is needed because of presentation with chest pain and subsequent positive cardiac enzymes elevation. Nuclear stress test has been scheduled for tomorrow. Congestive heart failure: This seems clinically compensated by exam. This is related to systolic plus diastolic dysfunction. Echocardiogram shows systolic dysfunction as well as diastolic dysfunction without any significant valvular abnormalities.. Will recommend entresto therapy, beta-betito therapy and diuretics therapy. Patient will also benefit from salt and fluid restriction. Entresto therapy not to be started at this time as there is some concern about affordability by the patient. Status post defibrillator placement: Patient claims defibrillator was placed in [place]. Last ICD battery change out was 3 years ago. Currently defibrillator seems to be functioning normally. Chest pain: Currently chest pain-free. Patient subsequently noted to have high troponin I. Patient will benefit from a ischemia workup. Chest pain probably precipitated by severe hypertension. Diabetes: Recommend good control of blood sugar. However should avoid any hypoglycemia. Patient being expertly managed by primary care M.D. - Time Time with patient: Greater than 35 minutes - CODE STATUS was discussed, patient remains full code. Surrogate decision-maker unchanged. Multiple medical problems were addressed. More than 50% of the time spent coordinating care, discussing management plans with involved caregivers. Management plans discussed with involved personnels. Medical decision making was of moderate to high complexity, patient's has multiple comorbidities. Nuclear stress test procedure was explained to the patient in detail. Risks benefits were discussed and informed consent was obtained. Alternatives were discussed. Patient informed that based on risk factors, physical exam, lab data findings and symptoms there is at least intermediate probability of progression of underlying CAD. Nuclear stress test procedure was therefore scheduled. Medications reviewed and adjusted accordingly: Yes
[2017-01-11] MEDS: ATORVASTATIN CALCIUM 80 MG TABLET PO SCH (23:01)
[2017-01-12] MEDS: ISOSORB DINIT/HYDRALAZINE HCL 20-37.5 MG TABLET PO SCH ×3 (06:23→22:28)
[2017-01-12] MEDS: LANSOPRAZOLE 30 MG TAB.RAP.DR PO SCH ×2 (06:23→17:08)
[2017-01-12] MEDS ORDERED: AMINOPHYLLINE INJ/PF 250 MG/10 ML SDV IV ONE (10:00)
[2017-01-12] MEDS ORDERED: REGADENOSON INJ 0.4 MG/5 ML DISP.SYRIN IV ONE (10:00)
[2017-01-12] MEDS: LISINOPRIL 10 MG TABLET PO SCH (10:50)
[2017-01-12] MEDS: ASPIRIN 81 MG TABLET, ENT COATED PO SCH (10:51)
[2017-01-12] MEDS: ENOXAPARIN SODIUM INJ 100 MG/1 ML DISP.SYRIN SUBCUT SCH ×2 (10:51→22:28)
[2017-01-12] MEDS: CARVEDILOL 12.5 MG TABLET PO SCH ×2 (10:51→22:28)
[2017-01-12] MEDS: AMLODIPINE BESYLATE 10 MG TABLET PO SCH (10:51)
[2017-01-12] MEDS: TICAGRELOR 90 MG TABLET PO SCH ×2 (11:44→17:09)
--- NOTE | 2017-01-12 14:09 | DRAGON STRESS TEST REPORT ---
INTRAVENOUS LEXISCAN CARDIOLITE STRESS TEST USING SINGLE PHOTON EMMISION COMPUTERIZED TOMOGRAPHIC. DATE OF PROCEDURE: January 12, 2017 INDICATION : Chest pain and non-STEMI CARDIAC RISK FACTORS: Severe hypertension, known CAD, diabetes, hypertension, dyslipidemia RESTING EKG: Sinus rhythm, abnormal Q waves inferior and lateral chest leads suggestive of prior myocardial infarction. STRESS EKG: No significant changes noted with LexiScan bolus REASON FOR TERMINATION: Protocol. PROCEDURE REPORT: Baseline heart rate 83 beats per minute with blood pressure of 107/80. Patient had no significant complaints. Heart rate at 2 minutes post bolus 108 with a blood pressure of 136/81. 3 minutes post bolus heart rate 90 with blood pressure of 135/75. No significant EKG changes were noted. Patient had no significant complaints during the procedure or postprocedure. Patient injected with Aminophyllin 75 mg at 3 minutes or later after Lexiscan bolus. CONCLUSIONS: Normal EKG and hemodynamic response to IV LexiScan. NUCLEAR DATA: At rest the patient was given 13.22 millicuries of technetium 99 sestamibi injected intravenously. As per protocol rest gated SPECT images were obtained. Subsequently the patient was given intravenous LexiScan at a dose of 0.4 mg in 5 mL intravenously, followed by flush with normal saline. Subsequently the stress dose of 42.8 millicuries of technetium 99 sestamibi was injected intravenously. As per protocol stress gated images were obtained. NUCLEAR INTERPRETATION: Both raw and processed data were used for interpretation. Visual, qualitative, computer-generated quantitative data was used. There was good myocardial uptake of technetium compound. Motion artifact and soft tissue attenuations were noted. Increased visceral uptake was noted. No definitive areas of transient perfusion defect noted. Severe fixed defect, indicative of severe scar noted involving the inferior, inferolateral and lateral wall of the left ventricle. EKG gated imaging showed LV EF at 18 %, rest and stress gated EF similar visually with diffuse hypokinesia and severe diffuse hypokinesia to akinesia of the inferior and inferolateral wall.. T. I D. ratio was 1.28. Lung heart ratio noted to be within normal limits 0.34. No significant extracardiac and abnormal radiotracer activities were noted. RV free wall uptake was noted to be wnl. IMPRESSION: Also refer to comments under nuclear interpretation. Also test results needs to be interpreted in the context of pretest probability. 1. There is no definitive scintigraphic evidence of LexiScan induced myocardial ischemia. 2. Severe fixed defect, indicative of severe scar noted involving the inferior , inferolateral and lateral wall of the left ventricle 3. EKG gated imaging shows left ejection fraction of approximately 18% with diffuse hypokinesia and severe diffuse hypokinesia to akinesia of the inferior and inferolateral wall. 4. Mild transient ischemic dilatation noted however could be related to LVH. Cannot rule out global ischemia but felt unlikely based on perfusion data. RECOMMENDATIONS: Aggressive risk factor modification, medical therapy. Low threshold for heart catheterization. Clinical correlation with echocardiogram derived ejection fraction. Inability to exercise by itself can lead to increased cardiovascular event risks. Consider cardiology consultation and or follow-up if clinically indicated. I AM AVAILABLE FOR CARDIOLOGY CONSULTATION AND FOLLOWUP IF REQUESTED BY PMD Ariana Vera M.D., PETE Speech And Language Assistant corporate aircraft mechanic, Board certified in cardiovascular diseases, Nuclear cardiology, Echocardiography Cardiac CT and cardiac MRI Ph. [phone] [place]
--- NOTE | 2017-01-12 19:43 | PDOC PROGRESS REPORT ---
Subjective Progress Note for:: 01/12/17 Subjective:: Patient seems to be doing better with gradual improvement. Pt is denying any chest arm or neck discomfort. Patient denying any PND, orthopnea. Patient denied any sustained palpitations, dizziness, syncope, near syncope. Patient denying any fever chills. Patient denying any other significant discomfort. In the morning nuclear stress test procedure was discussed. Risk benefits discussed. Patient gave informed consent. Patient is maintaining sinus rhythm with ventricular paced beats. Review of systems: Rest review of systems negative. Medications: Medications have been reviewed. Physical Exam Vital Signs: Temp Pulse Resp BP Pulse Ox 98.4 F 77 16 119/61 100 01/12/17 15:07 01/12/17 15:07 01/12/17 15:07 01/12/17 15:07 01/12/17 15:07 Intake & Output 01/11/17 01/12/17 01/13/17 06:59 06:59 06:59 Intake Total 1080 1358 869 Output Total 600 Balance 1080 1358 269 Weight 107.7 kg 108.4 kg Exam: GENERAL: well-nourished and in no acute distress. Alert and oriented x3 HEAD: Atraumatic, normocephalic. EYES: Pupils equal round and reactive to light, extraocular movements intact, sclera anicteric, conjunctiva are normal. ENT: TMs normal, nares patent, oropharynx clear without exudates. Moist mucous membranes. No oral ulcerations or bleeding gums noted NECK: supple without lymphadenopathy. Trachea is central. No cervical or axillary lymphadenopathy noted. Carotids are 2+, JVD WNL LUNGS: Respiration seems nonlabored, no significant accessory muscle action noted. Breath sounds clear to auscultation bilaterally and equal noted. No wheezes rales or rhonchi noted. No significant dullness noted on percussion. CHEST: Palpation of the chest wall shows no significant chest wall tenderness. No other significant abnormalities noted. Defibrillator noted left-sided chest. 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 ABDOMEN: Soft, no significant tenderness appreciated, normoactive bowel sounds. No guarding, no rebound. No rigidity noted . No masses appreciated. EXTREMITIES: Pedal pulses are 1-2+, no calf tenderness noted. No clubbing or cyanosis.trace to 1+ pedal edema noted NEUROLOGICAL: Focused neurological exam showed no significant neurologic deficit. Normal speech, no focal weakness appreciated. PSYCH: Normal mood, normal affect. Judgment and insight within normal limits. SKIN: No significant ecchymosis, rash, ulcerations or signs of pruritus noted. MUSCULOSKELETAL EXAM: No significant joint swelling noted. Results Laboratory Results: 01/11/17 06:02 01/11/17 06:02 01/09/17 01/09/17 01/09/17 12:50 12:50 12:50 Creatine Kinase 192 H 188 H CK-MB (CK-2) 2.83 Troponin I 0.027 01/09/17 01/09/17 01/10/17 20:30 20:30 05:00 Creatine Kinase 147 159 CK-MB (CK-2) 2.75 Troponin I 0.131 01/10/17 01/11/17 01/11/17 05:00 06:02 06:02 Creatine Kinase 116 CK-MB (CK-2) 2.48 1.75 Troponin I 0.098 0.071 EKG Comments: Telemetry strips reviewed. Showed sinus rhythm. No sustained tachycardia or bradycardia arrhythmias noted. Occasional PVCs noted. Impressions: Chest X-Ray 01/09/17 00:00 IMPRESSION: HEART ENLARGED WITHOUT FAILURE. NO CHANGE. Assessment & Plan - Diagnosis (1) NSTEMI (non-ST elevated myocardial infarction) Is this a current diagnosis for this admission?: Yes (2) Hypertensive emergency Is this a current diagnosis for this admission?: Yes (3) Chest pain Qualifiers: Chest pain type: unspecified Qualified Code(s): R07.9 - Chest pain, unspecified Is this a current diagnosis for this admission?: Yes (4) Coronary artery disease Qualifiers: Coronary Disease-Associated Artery/Lesion type: unspecified vessel or lesion type Associated angina: angina presence unspecified Is this a current diagnosis for this admission?: Yes (5) Type 2 diabetes mellitus Qualifiers: Diabetes mellitus complication status: with unspecified complications Diabetes mellitus intermediate insulin use: without intermediate use Qualified Code(s): E11.8 - Type 2 diabetes mellitus with unspecified complications; Z79.4 - correction (current) use of insulin Is this a current diagnosis for this admission?: Yes (6) Cardiac defibrillator in situ Is this a current diagnosis for this admission?: Yes (7) Congestive heart failure Qualifiers: Congestive heart failure type: combined Congestive heart failure chronicity: acute on chronic Qualified Code(s): I50.43 - Acute on chronic combined systolic (congestive) and diastolic (congestive) heart failure Is this a current diagnosis for this admission?: Yes - Notes Notes: Non-STEMI: Based on enzyme elevation and symptoms of chest discomfort patient seems to have sustained non-STEMI. Could have been precipitated by severe hypertension. Nuclear stress test shows mainly a severe fixed defect with no definitive transient perfusion defect. Borderline transient ischemic dilatation was noted but could well be related to LVH. Nonetheless, discussed that we could try medical management or send him for heart catheterization. Patient prefers to undergo medical management at this point. Patient was told that should he have any further chest pain while his blood pressure under satisfactory control then he should definitely consider undergoing heart catheterization. Right now mutual decision was made to treat patient with very aggressive risk factor modification and medical management. Hypertensive emergency: Patient was noted to have severe hypertension on presentation along with precipitation of chest pain. Currently blood pressure under satisfactory control. Coronary artery disease: Patient has significant CAD and is status post CABG and also multiple stent placement. Patient's medical regimen will be optimized. Nuclear stress test results were discussed with patient and his . Their questions were answered. Congestive heart failure: This seems clinically compensated by exam. This is related to systolic plus diastolic dysfunction. Echocardiogram shows systolic dysfunction as well as diastolic dysfunction without any significant valvular abnormalities.. Will recommend entresto therapy, beta-betito therapy and diuretics therapy. Patient will also benefit from salt and fluid restriction. Entresto therapy not to be started at this time as there is some concern about affordability by the patient. Status post defibrillator placement: Patient claims defibrillator was placed in [place]. Last ICD battery change out was 3 years ago. Currently defibrillator seems to be functioning normally. Chest pain: Currently chest pain-free. Patient subsequently noted to have high troponin I. Chest pain probably precipitated by severe hypertension. Patient to report any recurrence of chest pain. He was informed to inform the nurses. If he has any recurrent chest pain, will recommend transfer to tertiary care for heart Otherwise continue medical management. Diabetes: Recommend good control of blood sugar. However should avoid any hypoglycemia. Patient being expertly managed by primary care M.D. - Time Time with patient: Greater than 35 minutes - CODE STATUS was discussed, patient remains full code. Surrogate decision-maker unchanged. Multiple medical problems were addressed. More than 50% of the time spent coordinating care, discussing management plans with involved caregivers. Management plans discussed with involved personnels. Medical decision making was of high complexity, patient's has multiple comorbidities. Medications reviewed and adjusted accordingly: Yes
--- NOTE | 2017-01-12 20:37 | PDOC PROGRESS REPORT ---
Subjective Progress Note for:: 01/12/17 Subjective:: Patient was seen by the bedside he feels much better, he had a Cardiolite Lexiscan stress test done today, there was no scintigraphic evidence of reversible ischemia, it showed multiple old scars suggesting previous CO. Physical Exam Vital Signs: Temp Pulse Resp BP Pulse Ox 98.6 F 72 18 135/66 H 98 01/12/17 19:48 01/12/17 19:48 01/12/17 19:48 01/12/17 19:48 01/12/17 19:48 Intake & Output 01/11/17 01/12/17 01/13/17 06:59 06:59 06:59 Intake Total 1080 1358 869 Output Total 600 Balance 1080 1358 269 Weight 107.7 kg 108.4 kg General appearance: PRESENT: no acute distress, well-developed, well-nourished Head exam: PRESENT: atraumatic, normocephalic Eye exam: PRESENT: conjunctiva pink, EOMI, PERRLA. ABSENT: scleral icterus Ear exam: PRESENT: normal external ear exam Mouth exam: PRESENT: moist, tongue midline Neck exam: PRESENT: full ROM. ABSENT: carotid bruit, JVD, lymphadenopathy, thyromegaly Respiratory exam: PRESENT: clear to auscultation yuly Cardiovascular exam: PRESENT: RRR, +S1, +S2 Vascular exam: PRESENT: normal capillary refill GI/Abdominal exam: PRESENT: normal bowel sounds, soft Rectal exam: PRESENT: deferred Neurological exam: PRESENT: alert, awake, oriented to person, oriented to place , oriented to time, oriented to situation, CN II-XII grossly intact. ABSENT: motor sensory deficit Psychiatric exam: PRESENT: appropriate affect, normal mood. ABSENT: homicidal ideation, suicidal ideation Skin exam: PRESENT: dry, intact, warm. ABSENT: cyanosis, rash Results Laboratory Results: 01/11/17 06:02 01/11/17 06:02 01/09/17 01/09/17 01/09/17 12:50 12:50 12:50 Creatine Kinase 192 H 188 H CK-MB (CK-2) 2.83 Troponin I 0.027 01/09/17 01/09/17 01/10/17 20:30 20:30 05:00 Creatine Kinase 147 159 CK-MB (CK-2) 2.75 Troponin I 0.131 01/10/17 01/11/17 01/11/17 05:00 06:02 06:02 Creatine Kinase 116 CK-MB (CK-2) 2.48 1.75 Troponin I 0.098 0.071 Impressions: Chest X-Ray 01/09/17 00:00 IMPRESSION: HEART ENLARGED WITHOUT FAILURE. NO CHANGE. Assessment & Plan - Diagnosis (1) Hypertensive emergency Is this a current diagnosis for this admission?: Yes (2) Chest pain Qualifiers: Chest pain type: unspecified Qualified Code(s): R07.9 - Chest pain, unspecified Is this a current diagnosis for this admission?: Yes (3) Coronary artery disease Qualifiers: Coronary Disease-Associated Artery/Lesion type: unspecified vessel or lesion type Associated angina: angina presence unspecified Is this a current diagnosis for this admission?: Yes (4) Type 2 diabetes mellitus Qualifiers: Diabetes mellitus complication status: with unspecified complications Diabetes mellitus long-term insulin use: without long-term use Qualified Code(s): E11.8 - Type 2 diabetes mellitus with unspecified complications; Z79.4 - [facility] (current) use of insulin Is this a current diagnosis for this admission?: Yes
[2017-01-12] MEDS: ATORVASTATIN CALCIUM 80 MG TABLET PO SCH (22:27)
[2017-01-13] MEDS: LANSOPRAZOLE 30 MG TAB.RAP.DR PO SCH ×2 (05:07→17:05)
[2017-01-13] MEDS: ISOSORB DINIT/HYDRALAZINE HCL 20-37.5 MG TABLET PO SCH ×2 (05:07→14:22)
[2017-01-13] MEDS: ENOXAPARIN SODIUM INJ 100 MG/1 ML DISP.SYRIN SUBCUT SCH (10:19)
[2017-01-13] MEDS: LISINOPRIL 10 MG TABLET PO SCH (10:25)
[2017-01-13] MEDS: AMLODIPINE BESYLATE 10 MG TABLET PO SCH (10:28)
[2017-01-13] MEDS: CARVEDILOL 12.5 MG TABLET PO SCH (10:28)
[2017-01-13] MEDS: ASPIRIN 81 MG TABLET, ENT COATED PO SCH (10:28)
[2017-01-13] MEDS: TICAGRELOR 90 MG TABLET PO SCH ×2 (10:34→18:27)
[2017-01-13 18:08] VITALS: BP 119/71
--- NOTE | 2017-01-13 20:09 | PDOC PROGRESS REPORT ---
Subjective Progress Note for:: 01/13/17 Subjective:: Patient seems to be doing better with gradual improvement. Pt is denying any chest arm or neck discomfort. Patient denying any PND, orthopnea. Patient denied any sustained palpitations, dizziness, syncope, near syncope. Patient denying any fever chills. Patient denying any other significant discomfort. Nuclear stress test results were again reviewed with the patient. Patient denied any recurrence of chest pain. He was encouraged to ambulate in the hallway.. Patient is maintaining sinus rhythm with ventricular paced beats. Review of systems: Rest review of systems negative. Medications: Medications have been reviewed. Physical Exam Vital Signs: Temp Pulse Resp BP Pulse Ox 98.4 F 74 17 119/71 98 01/13/17 18:06 01/13/17 18:06 01/13/17 18:06 01/13/17 18:06 01/13/17 18:06 Intake & Output 01/12/17 01/13/17 01/14/17 06:59 06:59 06:59 Intake Total 1358 874 720 Output Total 600 Balance 1358 274 720 Weight 108.4 kg 108.6 kg Exam: GENERAL: well-nourished and in no acute distress. Alert and oriented x3 HEAD: Atraumatic, normocephalic. EYES: Pupils equal round and reactive to light, extraocular movements intact, sclera anicteric, conjunctiva are normal. ENT: TMs normal, nares patent, oropharynx clear without exudates. Moist mucous membranes. No oral ulcerations or bleeding gums noted NECK: supple without lymphadenopathy. Trachea is central. No cervical or axillary lymphadenopathy noted. Carotids are 2+, JVD WNL LUNGS: Respiration seems nonlabored, no significant accessory muscle action noted. Breath sounds clear to auscultation bilaterally and equal noted. No wheezes rales or rhonchi noted. No significant dullness noted on percussion. CHEST: Palpation of the chest wall shows no significant chest wall tenderness. No other significant abnormalities noted. Defibrillator noted on the left side chest. 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 ABDOMEN: Soft, no significant tenderness appreciated, normoactive bowel sounds. No guarding, no rebound. No rigidity noted . No masses appreciated. EXTREMITIES: Pedal pulses are 1-2+, no calf tenderness noted. No clubbing or cyanosis.trace to 1+ pedal edema noted NEUROLOGICAL: Focused neurological exam showed no significant neurologic deficit. Normal speech, no focal weakness appreciated. PSYCH: Normal mood, normal affect. Judgment and insight within normal limits. SKIN: No significant ecchymosis, rash, ulcerations or signs of pruritus noted. MUSCULOSKELETAL EXAM: No significant joint swelling noted. Results Laboratory Results: 01/11/17 06:02 01/11/17 06:02 01/09/17 01/09/17 01/09/17 12:50 12:50 12:50 Creatine Kinase 192 H 188 H CK-MB (CK-2) 2.83 Troponin I 0.027 01/09/17 01/09/17 01/10/17 20:30 20:30 05:00 Creatine Kinase 147 159 CK-MB (CK-2) 2.75 Troponin I 0.131 01/10/17 01/11/17 01/11/17 05:00 06:02 06:02 Creatine Kinase 116 CK-MB (CK-2) 2.48 1.75 Troponin I 0.098 0.071 EKG Comments: Telemetry strips shows sinus rhythm with occasional APCs and VPCs. Impressions: Chest X-Ray 01/09/17 00:00 IMPRESSION: HEART ENLARGED WITHOUT FAILURE. NO CHANGE. Assessment & Plan - Diagnosis (1) NSTEMI (non-ST elevated myocardial infarction) Is this a current diagnosis for this admission?: Yes (2) Hypertensive emergency Is this a current diagnosis for this admission?: Yes (3) Chest pain Qualifiers: Chest pain type: unspecified Qualified Code(s): R07.9 - Chest pain, unspecified Is this a current diagnosis for this admission?: Yes (4) Coronary artery disease Qualifiers: Coronary Disease-Associated Artery/Lesion type: unspecified vessel or lesion type Associated angina: angina presence unspecified Is this a current diagnosis for this admission?: Yes (5) Type 2 diabetes mellitus Qualifiers: Diabetes mellitus complication status: with unspecified complications Diabetes mellitus prison insulin use: without prison use Qualified Code(s): E11.8 - Type 2 diabetes mellitus with unspecified complications; Z79.4 - acetylene burner (current) use of insulin Is this a current diagnosis for this admission?: Yes (6) Cardiac defibrillator in situ Is this a current diagnosis for this admission?: Yes (7) Congestive heart failure Qualifiers: Congestive heart failure type: combined Congestive heart failure chronicity: acute on chronic Qualified Code(s): I50.43 - Acute on chronic combined systolic (congestive) and diastolic (congestive) heart failure Is this a current diagnosis for this admission?: Yes - Notes Notes: Non-STEMI: Currently is stable. Recent cardiac evaluations including nuclear stress test and also echocardiogram results were again discussed with the patient and his . They still prefer medical management. Patient was told that should he have any further chest pain while his blood pressure under satisfactory control then he should definitely consider undergoing heart catheterization. Hypertensive emergency: Patient was noted to have severe hypertension on presentation along with precipitation of chest pain. Currently blood pressure under satisfactory control. Compliance with medication as well as diet was emphasized to the patient. Coronary artery disease: Patient has significant CAD and is status post CABG and also multiple stent placement. Patient's medical regimen has been optimized. Nuclear stress test results were discussed with patient and his . Their questions were answered. Congestive heart failure: This seems clinically compensated by exam. This is related to systolic plus diastolic dysfunction. Echocardiogram shows systolic dysfunction as well as diastolic dysfunction without any significant valvular abnormalities.. Will recommend entresto therapy, beta-betito therapy and diuretics therapy. Patient will also benefit from salt and fluid restriction. Entresto therapy not to be started at this time as there is some concern about affordability by the patient. Entresto therapy should be considered as an outpatient once patient can afford it. Status post defibrillator placement: Patient claims defibrillator was placed in [place]. Last ICD battery change out was 3 years ago. Currently defibrillator seems to be functioning normally. Chest pain: Currently chest pain-free. Patient subsequently noted to have high troponin I. Chest pain probably precipitated by severe hypertension. Patient to report any recurrence of chest pain. He was informed to inform the nurses. If he has any recurrent chest pain, will recommend transfer to tertiary care for heart Otherwise continue medical management. Diabetes: Recommend good control of blood sugar. However should avoid any hypoglycemia. Patient being expertly managed by primary care M.DKain - Time Time with patient: 15-25 minutes - CODE STATUS was discussed, patient remains full code. Surrogate decision-maker unchanged. Multiple medical problems were addressed. More than 50% of the time spent coordinating care, discussing management plans with involved caregivers. Management plans discussed with involved personnels. Medical decision making was of moderate to high complexity , patient's has multiple comorbidities. Medications reviewed and adjusted accordingly: Yes
--- NOTE | 2017-01-13 21:04 | PDOC DISCHARGE SUMMARY ---
General - Admit/Disc Date/PCP Admission Date/Primary Care Provider: 01/10/17 13:44 ROSALBA CARROLL MD Discharge Date: 01/13/17 - Discharge Diagnosis (1) Hypertensive emergency Is this a current diagnosis for this admission?: Yes (2) Chest pain Is this a current diagnosis for this admission?: Yes (3) Coronary artery disease Is this a current diagnosis for this admission?: Yes (4) Type 2 diabetes mellitus Is this a current diagnosis for this admission?: Yes (5) Ischemic cardiomyopathy Is this a current diagnosis for this admission?: Yes (6) AICD (automatic cardioverter/defibrillator) present Is this a current diagnosis for this admission?: Yes - Additional Information Resuscitation Status: Full Code Discharge Diet: Cardiac Discharge Activity: Activity As Tolerated, Balance Activity w/Rest Home Medications: Albuterol Sulfate [Albuterol Sulfate 2.5mg/3 mL] 1 vial IH Q4 PRN #12 ml Aspirin [Aspirin EC] 81 mg PO DAILY #90 tablet.dr 01/13/17 Atorvastatin Calcium [Lipitor 80 mg Tablet] 80 mg PO QHS #90 tablet 01/13/17 Carvedilol [Coreg 25 mg Tablet] 25 mg PO Q12 #60 tablet 01/13/17 Isosorb Dinit/Hydralazine HCl [Bidil 20-37.5 mg Tablet] 1 tab PO Q8 #90 tablet 01/13/17 Lisinopril [Prinivil 40 mg Tablet] 40 mg PO DAILY #30 tablet 01/13/17 Nitroglycerin [Nitrostat] 0.4 mg SL PRN PRN #60 tab.subl 01/13/17 Ranolazine [Ranexa] 1,000 mg PO BID #60 tab.er.12h 01/13/17 Sitagliptin Phos/Metformin HCl [Janumet Xr 100-1,000 mg Tablet] 1 each PO DAILY #30 tbmp.24hr 01/13/17 Ticagrelor [Brilinta 90 mg Tablet] 90 mg PO BID #60 tablet 01/13/17 History of Present Illness History of Present Illness: Patient 66-year-old male with a known history of ischemic cardiomyopathy chronic chronic systolic heart failure, coronary artery disease status post multiple stents insertion, CABG AICD pacemaker placement he came to the office today because of chest pain and shortness of breath.He has no medical insurance and is not very compliant with care, in the office a 12-lead EKG was done it showed sinus rhythm with old inferior wall TX, right bundle branch block , there is no change from 2015 EKG he was admitted directly to the hospital for management Hospital Course Hospital Course: Patient was admitted for the evaluation of hypertensive emergency, he was very symptomatic with blood pressure above 200 systolic. He was treated with intravenous nitroglycerin infusion, he was seen by cardiology Dr. Vera, he underwent Cardiolite stress test, 2D echo. The Cardiolite stress test did not show any reversible ischemia, it showed old scars from previous myocardial infarction. 2D echo showed a very low ejection fraction of left ventricle but patient was clinically compensated and was not in clinical heart failure on this admission. Patient improved with management, he has a history of coronary artery disease with multiple stent placements he has no more room for cardiac intervention at this point is management is medical. Physical Exam Vital Signs: Temp Pulse Resp BP Pulse Ox 98.4 F 74 17 119/71 98 01/13/17 18:06 01/13/17 18:06 01/13/17 18:06 01/13/17 18:06 01/13/17 18:06 Intake & Output 01/12/17 01/13/17 01/14/17 06:59 06:59 06:59 Intake Total 1358 874 720 Output Total 600 Balance 1358 274 720 Weight 108.4 kg 108.6 kg General appearance: PRESENT: no acute distress, well-developed, well-nourished Head exam: PRESENT: atraumatic, normocephalic Eye exam: PRESENT: conjunctiva pink, EOMI, PERRLA. ABSENT: scleral icterus Ear exam: PRESENT: normal external ear exam Mouth exam: PRESENT: moist, tongue midline Neck exam: PRESENT: full ROM Cardiovascular exam: PRESENT: RRR, +S1, +S2 Pulses: PRESENT: normal dorsalis pedis pul, +2 pedal pulses bilateral Vascular exam: PRESENT: normal capillary refill GI/Abdominal exam: PRESENT: normal bowel sounds, soft Rectal exam: PRESENT: deferred Neurological exam: PRESENT: alert, awake, oriented to person, oriented to place , oriented to time, oriented to situation, CN II-XII grossly intact Psychiatric exam: PRESENT: appropriate affect, normal mood Skin exam: PRESENT: dry, intact, warm Results Laboratory Results: 01/11/17 06:02 01/11/17 06:02 01/09/17 01/09/17 01/09/17 12:50 12:50 12:50 Creatine Kinase 192 H 188 H CK-MB (CK-2) 2.83 Troponin I 0.027 01/09/17 01/09/17 01/10/17 20:30 20:30 05:00 Creatine Kinase 147 159 CK-MB (CK-2) 2.75 Troponin I 0.131 01/10/17 01/11/17 01/11/17 05:00 06:02 06:02 Creatine Kinase 116 CK-MB (CK-2) 2.48 1.75 Troponin I 0.098 0.071 Impressions: Chest X-Ray 01/09/17 00:00 IMPRESSION: HEART ENLARGED WITHOUT FAILURE. NO CHANGE.
== END 2017-01-13 19:00 | disposition home or self-care (01) | DRG 281 ==
LOC: 4N 12:15 → 3S 13:48 → OBSVTOIN 01-10 13:44
PROVIDERS: ADMIT Internal Medicine; ATTEND Internal Medicine
DX: I16.1 Hypertensive emergency (principal); I21.4 Non-ST elevation (NSTEMI) myocardial infarction; I50.42 Chronic combined systolic (congestive) and diastolic (congestive) heart failure; I25.10 Atherosclerotic heart disease of native coronary artery without angina pectoris; I11.0 Hypertensive heart disease with heart failure; E11.9 Type 2 diabetes mellitus without complications; I25.5 Ischemic cardiomyopathy; E78.5 Hyperlipidemia, unspecified; J44.9 Chronic obstructive pulmonary disease, unspecified; J45.909 Unspecified asthma, uncomplicated; K21.9 Gastro-esophageal reflux disease without esophagitis; Z95.810 Presence of automatic (implantable) cardiac defibrillator; Z95.5 Presence of coronary angioplasty implant and graft; Z91.19 Patient's noncompliance with other medical treatment and regimen; Z59.9 Problem related to housing and economic circumstances, unspecified; I25.2 Old myocardial infarction; Z82.49 Family history of ischemic heart disease and other diseases of the circulatory system; Z91.041 Radiographic dye allergy status; Z79.82 Long term (current) use of aspirin; Z79.899 Other long term (current) drug therapy; Z79.4 Long term (current) use of insulin
CPT/HCPCS: 36415; 36600; 71010; 78452; 80048; 80061; 80076; 82550; 82553; 82803; 82962; 83036; 84439; 84443; 84484; 85025; 85379; 93005; 93010; 93017; 93306; A9500; G0378; G0379; J0280; J1650; J2785; J3490; Q9969

== ENCOUNTER 2017-08-04 14:52 | Inpatient (IN) | payer MEDICAID, MEDICARE ==
--- NOTE | 2017-08-04 15:14 | ER Document Report ---
ED Respiratory Problem - General Chief Complaint: Shortness Of Breath Stated Complaint: SHORTNESS OF BREATH Time Seen by Provider: 08/04/17 14:58 Notes: The patient is a 67-year-old male, past medical history CHF, HTN, CAD, presents after an episode of mild chest pressure this morning that began at rest. He was also having some shortness of breath. Patient took 2 nitro and his chest pain went away, but he is still feeling short of breath. EMS placed him on 1 L nasal cannula and he feels much better. TRAVEL OUTSIDE OF THE [place] IN LAST 30 DAYS: No - Related Data Allergies/Adverse Reactions: Iodinated Contrast- Oral and IV Dye [IV Dye, Iodine Containing] Allergy ( Verified 01/27/15 06:29) Past Medical History - General Information source: Patient - Social History Smoking Status: Unknown if Ever Smoked Family History: Reviewed & Not Pertinent. denies: CAD - Past Medical History Cardiac Medical History: Reports: Hx Congestive Heart Failure, Hx Coronary Artery Disease, Hx Heart Attack - six, Hx Hypercholesterolemia, Hx Hypertension Pulmonary Medical History: Reports: Hx Asthma, Hx Bronchitis, Hx COPD, Hx Pneumonia Neurological Medical History: Reports: Hx Cerebrovascular Accident - 2010. Denies: Hx Seizures Endocrine Medical History: Reports: Hx Diabetes Mellitus Type 2 Renal/ Medical History: Reports: Hx Benign Prostatic Hyperplasia GI Medical History: Reports: Hx Gastroesophageal Reflux Disease Musculoskeltal Medical History: Denies Hx Arthritis Psychiatric Medical History: Denies: Hx Depression Past Surgical History: Reports: Hx Abdominal Surgery - hernia, Hx Cardiac Catheterization, Hx Cardiac Surgery - 8 stents, bypass sx, defibrilator, Hx Coronary Artery Bypass Graft - x 3, Hx Coronary Stent - x 8, Hx Pacemaker, Hx Tonsillectomy - Immunizations Immunizations up to date: Yes Hx Diphtheria, Pertussis, Tetanus Vaccination: Yes Hx Pneumococcal Vaccination: 01/30/14 Review of Systems - Review of Systems Notes: REVIEW OF SYSTEMS: CONSTITUTIONAL: -fevers, -chills EENT: -eye pain, -difficulty swallowing, -nasal congestion CARDIOVASCULAR: +chest pain, -syncope. RESPIRATORY: -cough, +SOB GASTROINTESTINAL: -abdominal pain, -nausea, -vomiting, -diarrhea GENITOURINARY: -dysuria, -hematuria MUSCULOSKELETAL: -back pain, -neck pain SKIN: -rash or skin lesions. HEMATOLOGIC: -easy bruising or bleeding. LYMPHATIC: -swollen, enlarged glands. NEUROLOGICAL: -altered mental status or loss of consciousness, -headache, - neurologic symptoms PSYCHIATRIC: -anxiety, -depression. ALL OTHER SYSTEMS REVIEWED AND NEGATIVE. Physical Exam - Vital signs Vitals: Pulse Ox 99 08/04/17 15:14 - Notes Notes: PHYSICAL EXAMINATION: GENERAL: Well-appearing, well-nourished and in no acute distress. HEAD: Atraumatic, normocephalic. EYES: Pupils equal round and reactive to light, extraocular movements intact, sclera anicteric, conjunctiva are normal. ENT: nares patent, oropharynx clear without exudates. Moist mucous membranes. NECK: Normal range of motion, supple without lymphadenopathy LUNGS: Breath sounds clear to auscultation bilaterally and equal. No wheezes rales or rhonchi. HEART: Regular rate and rhythm without murmurs ABDOMEN: Soft, nontender, normoactive bowel sounds. No guarding, no rebound. No masses appreciated. EXTREMITIES: Normal range of motion, no pitting or edema. No cyanosis. NEUROLOGICAL: Cranial nerves grossly intact. Normal speech, normal gait. Normal sensory and motor exams. PSYCH: Normal mood, normal affect. SKIN: Warm, Dry, normal turgor, no rashes or lesions noted. Course - Re-evaluation Re-evalutation: Patient with chest pain and shortness of breath that resolved after a nitro and aspirin. Patient's blood pressure remained in the 220s/140s. With the elevated troponin, but no EKG changes, suspect hypertensive emergency. Patient was placed on a nitro drip with improvement of his blood pressure, SOB and chest pain. Repeat troponin did not increase. Patient's last stress test was 9 months ago. With his multiple comorbidities, patient requires admission for further evaluation and treatment of his chest pain, shortness of breath and hypertension. He remains on a nitro drip. His primary care physician is Dr. Rodrigues. 08/04/17 18:[address] Rodrigues and awaiting callback. 08/04/17 19:[address] Rodrigues and will admit patient as inpatient to [facility] for further evaluation his chest pain and hypertensive emergency. - Vital Signs Vital signs: Temp Pulse Resp BP Pulse Ox 17 149/95 H 98 08/04/17 19:20 08/04/17 19:20 08/04/17 19:20 - Laboratory Result Diagrams: 08/04/17 14:40 08/04/17 14:40 Laboratory results interpreted by me: 08/04/17 08/04/17 08/04/17 14:40 14:40 14:40 RBC 6.22 H Hgb 17.9 H Hct 53.2 H RDW 14.9 H Eosinophils % 7.0 H Creatinine 1.30 H Est GFR (Non-Af Amer) 55 L Direct Bilirubin 0.6 H NT-Pro-B Natriuret Pep 1830 H Total Protein 8.4 H - Diagnostic Test Radiology reviewed: Image reviewed, Reports reviewed Radiology results interpreted by me: CXR: stable cardiomegaly, no active pulmonary disease - EKG Interpretation by Me EKG shows normal: Sinus rhythm Rate: Normal [place]/QRS: IVCD When compared to previous EKG there are: No significant change Critical Care Note - Critical Care Note Total time excluding time spent on procedures (mins): 45 Discharge - Discharge Clinical Impression: Hypertensive emergency Chest pain Qualifiers: Chest pain type: unspecified Qualified Code(s): R07.9 - Chest pain, unspecified Condition: Stable Disposition: ADMITTED INPATIENT Admitting Provider: [facility] Admitted: [facility]
[2017-08-04 15:22] LABS: ABSOLUTE EOSINOPHILS # (AUTO) 0.3 10^3/uL (0.0-0.6); ABSOLUTE LYMPHOCYTES (AUTO) 1.6 10^3/uL (0.5-4.7); ABSOLUTE MONOCYTES (AUTO) 0.5 10^3/uL (0.1-1.4); BASOPHILS % (AUTO) 0.8 % (0-2); HEMATOCRIT 53.2 % (37.9-51.0); HEMOGLOBIN 17.9 g/dL (13.5-17.0); MEAN CORPUSCULAR HEMOGLOBIN 28.8 pg (27.0-33.4); MEAN CORPUSCULAR HGB CONC 33.7 g/dL (32.0-36.0); MEAN CORPUSCULAR VOLUME 86 fl (80-97); MONOCYTES % (AUTO) 10.5 % (3-13); PLATELET COUNT 191 10^3/uL (150-450); RED BLOOD COUNT 6.22 10^6/uL (4.35-5.55); RED CELL DISTRIBUTION WIDTH 14.9 % (11.5-14.0); SEGMENTED NEUTROPHILS % (AUTO) 45.7 % (42-78); TOTAL CELLS COUNTED % (AUTO) 100 %; WHITE BLOOD COUNT 4.4 10^3/uL (4.0-10.5)
--- NOTE | 2017-08-04 15:32 | RADIOLOGY REPORT (SQ) ---
EXAM DESCRIPTION: CHEST SINGLE VIEW COMPLETED DATE/TIME: 08/04/2017 3:20 pm REASON FOR STUDY: SOB COMPARISON: 01/09/2017 EXAM PARAMETERS: NUMBER OF VIEWS: One view. TECHNIQUE: Single frontal radiographic view of the chest acquired. RADIATION DOSE: NA LIMITATIONS: None. FINDINGS: LUNGS AND PLEURA: No opacities, masses or pneumothorax. No pleural effusion. MEDIASTINUM AND HILAR STRUCTURES: No masses. Contour normal. HEART AND VASCULAR STRUCTURES: Stable cardiomegaly BONES: No acute findings. HARDWARE: Pacing defibrillator leads intact. Midline sternotomy wires. OTHER: No other significant finding. IMPRESSION: Stable cardiomegaly. No active pulmonary disease. TECHNICAL DOCUMENTATION: JOB ID: [id number] [employer]- All Rights Reserved
[2017-08-04 15:44] LABS: ALANINE AMINOTRANSFERASE 36 U/L (21-72); ALBUMIN 4.9 g/dL (3.5-5.0); ALKALINE PHOSPHATASE 61 U/L (38-126); ANION GAP 15 (5-19); ASPARTATE AMINO TRANSFERASE 26 U/L (17-59); BILIRUBIN,DIRECT 0.6 mg/dL (0.0-0.4); BILIRUBIN,TOTAL 1.3 mg/dL (0.2-1.3); BLOOD UREA NITROGEN 15 mg/dL (7-20); CALCIUM 10.1 mg/dL (8.4-10.2); CARBON DIOXIDE 24 mmol/L (22-30); CHLORIDE 104 mmol/L (98-107); CREATINE KINASE 152 U/L (55-170); GLUCOSE 93 mg/dL (75-110); POTASSIUM 4.2 mmol/L (3.6-5.0); SODIUM 142.9 mmol/L (137-145); TOTAL PROTEIN 8.4 g/dL (6.3-8.2)
[2017-08-04 15:59] LABS: TROPONIN I 0.132 ng/mL
[2017-08-04] MEDS ORDERED: NITROGLYCERIN/D5W 50 MG/250 ML RTUINJ IV PRN (16:48)
[2017-08-04] MEDS ORDERED: ASPIRIN 81 MG TABLET, CHEWABLE PO ONE (16:48)
[2017-08-04] MEDS ORDERED: NITROGLYCERIN/D5W 50 MG/250 ML RTUINJ IV ONE (16:50)
[2017-08-04] MEDS ORDERED: IPRATROPIUM/ALBUTEROL 0.5-2.5 MG/3 ML AMPUL NEB ONE (17:19)
[2017-08-04 17:46] LABS: VENOUS BLOOD BASE EXCESS -2.2 mmol/L; VENOUS BLOOD HCO3 22.9 mmol/L (20-32); VENOUS BLOOD PCO2 40.6 mmHg (35-63); VENOUS BLOOD PH 7.37 (7.30-7.42)
--- NOTE | 2017-08-04 18:47 | EKG REPORT ---
SEVERITY:- ABNORMAL ECG - SINUS RHYTHM LEFT ATRIAL ABNORMALITY NONSPECIFIC INTRAVENTRICULAR CONDUCTION DELAY PROBABLE INFERIOR INFARCT, AGE INDETERMINATE BORDERLINE R WAVE PROGRESSION, ANTERIOR LEADS , CONSIDER OLD ANTERIOR WA LEFT POST FASCICULAR BLOCK : Confirmed by: Chidi Blake MD 04-Aug-2017 18:46:53
[2017-08-04] MEDS ORDERED: (PENDING PHARMACY ID) (Ranolazine [Ranexa] 1,000 MG) PO SCH (21:30)
[2017-08-04] MEDS ORDERED: (PENDING PHARMACY ID) (Carvedilol [Coreg 25 Mg Tablet] 1 TAB) PO SCH (21:30)
[2017-08-04] MEDS ORDERED: (PENDING PHARMACY ID) (Sitagliptin Phos/Metformin Hcl [Janumet 50-1,000 Mg Tablet] 1 EACH) PO SCH (21:30)
[2017-08-04] MEDS ORDERED: (PENDING PHARMACY ID) (Lisinopril [Zestril] 40 MG) PO SCH (21:30)
[2017-08-04 21:44] LABS: LIPASE 87.6 U/L (23-300); PHOSPHORUS 3.5 mg/dL (2.5-4.5)
[2017-08-04] MEDS ORDERED: SITAGLIPTIN PHOSPHATE 50 MG TABLET PO ONE (22:00)
[2017-08-04] MEDS ORDERED: METFORMIN HCL 500 MG TABLET PO ONE (22:00)
[2017-08-04] MEDS ORDERED: LISINOPRIL 10 MG TABLET PO ONE (22:00)
[2017-08-04] MEDS ORDERED: ISOSORBIDE MONONITRATE 30 MG TAB.ER.24H PO ONE (22:00)
[2017-08-04] MEDS ORDERED: TICAGRELOR 90 MG TABLET PO ONE (22:00)
[2017-08-04 22:01] LABS: FREE T4 (FREE THYROXINE) 1.24 ng/dL (0.78-2.19)
[2017-08-04 22:13] LABS: CREATINE KINASE MB 1.44 ng/mL (<4.55); TROPONIN I 0.136 ng/mL
[2017-08-04 22:15] LABS: THYROID STIMULATING HORMONE 2.35 uIU/mL (0.47-4.68)
[2017-08-04 22:30] LABS: INTERNATIONAL RATION (INR) 1.11; PROTHROMBIN TIME 15.1 SEC (11.4-15.4)
[2017-08-04 22:31] LABS: PARTIAL THROMBOPLASTIN TIME 28.3 SEC (23.5-35.8)
[2017-08-05] MEDS: RANOLAZINE 500 MG TAB.SR.12H PO SCH ×3 (01:43→21:18)
[2017-08-05] MEDS: ATORVASTATIN CALCIUM 40 MG TABLET PO SCH ×2 (01:44→21:18)
[2017-08-05] MEDS: CARVEDILOL 12.5 MG TABLET PO SCH ×3 (01:45→21:19)
[2017-08-05] MEDS: ISOSORB DINIT/HYDRALAZINE HCL 20-37.5 MG TABLET PO SCH ×4 (01:45→21:18)
[2017-08-05] MEDS: HYDRALAZINE HCL 25 MG TABLET PO SCH ×4 (01:45→21:19)
[2017-08-05] MEDS ORDERED: SITAGLIPTIN PHOSPHATE 50 MG TABLET ONE (02:09)
[2017-08-05] MEDS ORDERED: LISINOPRIL 10 MG TABLET ONE (02:09)
[2017-08-05] MEDS ORDERED: ISOSORBIDE MONONITRATE 60 MG TAB.ER.24H PO ONE (02:09)
[2017-08-05] MEDS ORDERED: METFORMIN HCL 500 MG TABLET ONE (02:09)
[2017-08-05 03:57] LABS: ABSOLUTE EOSINOPHILS # (AUTO) 0.3 10^3/uL (0.0-0.6); ABSOLUTE LYMPHOCYTES (AUTO) 1.7 10^3/uL (0.5-4.7); ABSOLUTE MONOCYTES (AUTO) 0.7 10^3/uL (0.1-1.4); ABSOLUTE NEUT (AUTO) 3.5 10^3/uL (1.7-8.2); BASOPHILS % (AUTO) 0.3 % (0-2); EOSINOPHILS % (AUTO) 4.5 % (0-6); HEMATOCRIT 48.4 % (37.9-51.0); HEMOGLOBIN 16.2 g/dL (13.5-17.0); LYMPHOCYTES % (AUTO) 26.8 % (13-45); MEAN CORPUSCULAR HEMOGLOBIN 28.5 pg (27.0-33.4); MEAN CORPUSCULAR HGB CONC 33.4 g/dL (32.0-36.0); MEAN CORPUSCULAR VOLUME 85 fl (80-97); MONOCYTES % (AUTO) 11.6 % (3-13); PLATELET COUNT 167 10^3/uL (150-450); RED BLOOD COUNT 5.66 10^6/uL (4.35-5.55); RED CELL DISTRIBUTION WIDTH 14.8 % (11.5-14.0); SEGMENTED NEUTROPHILS % (AUTO) 56.8 % (42-78); TOTAL CELLS COUNTED % (AUTO) 100 %; WHITE BLOOD COUNT 6.2 10^3/uL (4.0-10.5)
[2017-08-05 04:08] LABS: ALANINE AMINOTRANSFERASE 34 U/L (21-72); ALBUMIN 4.1 g/dL (3.5-5.0); ALKALINE PHOSPHATASE 54 U/L (38-126); ANION GAP 16 (5-19); ASPARTATE AMINO TRANSFERASE 14 U/L (17-59); BILIRUBIN,DIRECT 0.3 mg/dL (0.0-0.4); BILIRUBIN,TOTAL 1.1 mg/dL (0.2-1.3); BLOOD UREA NITROGEN 16 mg/dL (7-20); CALCIUM 8.8 mg/dL (8.4-10.2); CARBON DIOXIDE 20 mmol/L (22-30); CHLORIDE 106 mmol/L (98-107); CREATINE KINASE 108 U/L (55-170); GLUCOSE 78 mg/dL (75-110); TOTAL PROTEIN 6.4 g/dL (6.3-8.2); TRIGLYCERIDES 141 mg/dL (<150)
[2017-08-05 06:58] LABS: CREATINE KINASE MB 1.64 ng/mL (<4.55); TROPONIN I 0.168 ng/mL
[2017-08-05 06:59] LABS: DIRECT LDL 169 mg/dL (<100)
[2017-08-05] MEDS ORDERED: ACETAMINOPHEN 325 MG TABLET PO PRN (08:10)
[2017-08-05] MEDS: SITAGLIPTIN PHOSPHATE 50 MG TABLET PO SCH (10:36)
[2017-08-05] MEDS: METFORMIN HCL 500 MG TABLET PO SCH (10:36)
[2017-08-05] MEDS: LISINOPRIL 10 MG TABLET PO SCH (10:36)
[2017-08-05] MEDS: ENOXAPARIN SODIUM INJ 40 MG/0.4 ML DISP.SYRIN SUBCUT SCH (10:37)
[2017-08-05] MEDS: ISOSORBIDE MONONITRATE 30 MG TAB.ER.24H PO SCH (10:47)
[2017-08-05 11:57] LABS: CREATINE KINASE MB 1.83 ng/mL (<4.55); TROPONIN I 0.124 ng/mL
[2017-08-05] MEDS: TICAGRELOR 90 MG TABLET PO SCH (12:28)
--- NOTE | 2017-08-05 12:32 | PDOC CONSULTATION ---
Consultation Consult Date: 08/05/17 Attending physician:: ROSALBA CARROLL Consult reason:: Chest pain and shortness of breath History of Present Illness Admission Date/PCP: 08/04/17 19:51 ROSALBA CARROLL MD Patient complains of: Chest pain History of Present Illness: The patient is a 67-year-old male, past medical history CHF, HTN, CAD, presents after an episode of mild chest pressure this morning that began at rest. Patient claims that yesterday morning he did not feel well and was very weak even to walk. Patient subsequently took his blood pressure and it was noted to be extremely high at 237/107 or so. Patient called his daughter and subsequently he was taken to Dr. Carroll's office where he did an EKG and sent patient to the ER to be admitted. Patient claims that he was given some nitroglycerin. Subsequently EMS were called and he was sent to the emergency room. He was also having some shortness of breath. Patient took 2 nitro and his chest pain went away, but he is still feeling short of breath. EMS placed him on 1 L nasal cannula and on ER arrival he feels much better. This history was reviewed and confirmed. Since patient admission, he has had no recurrence of chest pain. His blood pressure was noted to be high at home and in doctor's office as well as in the ER but this morning it is well controlled. It seems patient medical regimen has been optimized. Patient currently on nitroglycerin drip. Subsequently his cardiac enzymes came back suggestive and been asked to see this patient. Patient claims he is on statin therapy but his LDL and total cholesterol was still quite high. Past Medical History Cardiac Medical History: Reports: Congestive Heart Failure, Coronary Artery Disease, Myocardial Infarction - six, Hyperlipidema, Hypertension Pulmonary Medical History: Reports: Asthma, Bronchitis, Chronic Obstructive Pulmonary Disease (COPD), Pneumonia Neurological Medical History: Denies: Seizures Endocrine Medical History: Reports: Diabetes Mellitus Type 2 GI Medical History: Reports: Gastroesophageal Reflux Disease Musculoskeltal Medical History: Denies: Arthritis Psychiatric Medical History: Denies: Depression Hematology: Denies: Anemia Past Surgical History Past Surgical History: Reports: Cardiac Catheterization, Coronary Artery Bypass Graft - x 3, Coronary Stent - x 8, Pacemaker, Tonsillectomy Social History Information Source: Patient Smoking Status: Former Smoker Frequency of Alcohol Use: None Hx Recreational Drug Use: No Drugs: None Hx Prescription Drug Abuse: No - Advance Directive Resuscitation Status: Full Code Surrogate healthcare decision maker:: Patient's children at the surrogate decision-maker Family History Family History: Hypertension. denies: CAD Parental Family History Reviewed: Yes Children Family History Reviewed: Yes Sibling(s) Family History Reviewed.: Yes Medication/Allergy Home Medications: Atorvastatin Calcium [Lipitor 40 mg Tablet] 40 mg PO QHS 08/04/17 Carvedilol [Coreg 25 mg Tablet] 1 tab PO BID 08/04/17 Hydralazine HCl [Apresoline 25 mg Tablet] 25 mg PO TID 08/04/17 Isosorb Dinit/Hydralazine HCl [Bidil 20-37.5 mg Tablet] 1 tab PO TID 08/04/17 Isosorbide Mononitrate [Isosorbide Mononitrate ER] 30 mg PO DAILY 08/04/17 Lisinopril [Zestril] 40 mg PO DAILY 08/04/17 Ranolazine [Ranexa] 1,000 mg PO BID 08/04/17 Sitagliptin Phos/Metformin HCl [Janumet 50-1,000 Mg Tablet] 1 each PO DAILY Ticagrelor [Brilinta 90 mg Tablet] 90 mg PO DAILY 08/04/17 Allergies/Adverse Reactions: Iodinated Contrast- Oral and IV Dye [IV Dye, Iodine Containing] Allergy ( Verified 01/27/15 06:29) Review of Systems Review of Systems: Please see history of present illness and past medical history as wall. Constitutional: No fever or chills reported. Patient has noted some recent fatigue and tiredness. Head : No recent chronic headaches, recent head injury. Eyes: No recent eye pain, diplopia, redness, discharge, acute visual changes. Ears: No recent chronic ear pain, acute hearing loss, ear discharge. Oral cavity: No recent ulcerations, bleeding, oral cavity discomfort. Neck: No recent acute neck pain reported. Hematologic: No recent easy bruising or bleeding or hematologic malignancy reported. Lymphatic: No recent lymphatic malignancy, chronic lymphadenopathy reported yet Cardiovascular system review: See history of present illness. Respiratory system review: No recent chronic cough, hemoptysis, blood clots in the lungs reported. Mild Shortness of breath on exertion Gastrointestinal system review: Negative for any recent acute or chronic abdominal pain, hematemesis, melena, recent change in bowel habits. Genitourinary system review: No recent acute or chronic hematuria, flank pain, UTI etc. reported. Skin system review: Negative for any recent abnormal bruising, no rash, no pruritus reported. Neurologic: No prior history of strokes, mini strokes, seizure disorder. Psychologic: No history of major psychosis or major depression reported. Musculoskeletal: Minor aches and pains reported. No acute joint swelling reported. Endocrine: No recent polyuria, polydipsia, recent heat or cold intolerance. Physical Exam Vital Signs: Temp Pulse Resp BP Pulse Ox 98.2 F 83 18 123/66 100 08/05/17 03:06 08/05/17 08:29 08/05/17 03:06 08/05/17 11:01 08/05/17 11:01 Intake & Output 08/04/17 08/05/17 08/06/17 06:59 06:59 06:59 Intake Total 45 Output Total 0 Balance 45 Weight 109.1 kg Exam: GENERAL: well-nourished and in no acute distress. Alert and oriented x3 HEAD: Atraumatic, normocephalic. EYES: Pupils equal round and reactive to light, extraocular movements intact, sclera anicteric, conjunctiva are normal. ENT: TMs normal, nares patent, oropharynx clear without exudates. Moist mucous membranes. No oral ulcerations or bleeding gums noted NECK: supple without lymphadenopathy. Trachea is central. No cervical or axillary lymphadenopathy noted. Carotids are 2+, JVD WNL LUNGS: Respiration seems nonlabored, no significant accessory muscle action noted. Breath sounds clear to auscultation bilaterally and equal noted. No wheezes rales or rhonchi noted. No significant dullness noted on percussion. CHEST: Palpation of the chest wall shows no significant chest wall tenderness. No other significant abnormalities noted. HEART: Arma THEATER USHER, No PSH, 1/6 SHAYLEE aortic area, 1/6 alcantar systolic murmur mitral area, no rubs, no gallops. ABDOMEN: Soft, no significant tenderness appreciated, normoactive bowel sounds. No guarding, no rebound. No rigidity noted . No masses appreciated. EXTREMITIES: Pedal pulses are 1-2+, no calf tenderness noted. No clubbing or cyanosis.trace to 1+ pedal edema noted NEUROLOGICAL: Focused neurological exam showed no significant neurologic deficit. Normal speech, no focal weakness appreciated. PSYCH: Normal mood, normal affect. Judgment and insight within normal limits. SKIN: No significant ecchymosis, rash, ulcerations or signs of pruritus noted. MUSCULOSKELETAL EXAM: No significant joint swelling noted. Results Laboratory Results: 08/05/17 03:35 08/05/17 03:35 08/04/17 08/05/17 08/05/17 21:30 03:35 03:35 WBC 6.2 RBC 5.66 H Hgb 16.2 Hct 48.4 MCV 85 MCH 28.5 MCHC 33.4 RDW 14.8 H Plt Count 167 Seg Neutrophils % 56.8 Lymphocytes % 26.8 Monocytes % 11.6 Eosinophils % 4.5 Basophils % 0.3 Absolute Neutrophils 3.5 Absolute Lymphocytes 1.7 Absolute Monocytes 0.7 Absolute Eosinophils 0.3 Absolute Basophils 0.0 Sodium 142.0 Potassium 4.0 Chloride 106 Carbon Dioxide 20 L Anion Gap 16 BUN 16 Creatinine 1.12 Est GFR ( Amer) > 60 Est GFR (Non-Af Amer) > 60 Glucose 78 Calcium 8.8 Total Bilirubin 1.1 AST 14 L ALT 34 Alkaline Phosphatase 54 Ammonia 16.2 Total Protein 6.4 Albumin 4.1 Triglycerides 141 Cholesterol 245.50 H LDL Cholesterol Direct 169 H VLDL Cholesterol 28.0 HDL Cholesterol 43 08/04/17 08/04/17 08/05/17 21:30 21:30 03:35 Creatine Kinase 108 CK-MB (CK-2) 1.44 1.64 Troponin I 0.136 0.168 NT-Pro-B Natriuret Pep 2600 H 08/05/17 08/05/17 08/05/17 03:35 11:11 11:11 Creatine Kinase 108 111 CK-MB (CK-2) 1.83 Troponin I 0.124 NT-Pro-B Natriuret Pep EKG Comments: Twelve-lead EKG shows no significant ST-T wave changes. Evidence of prior inferior myocardial infarction noted. Impressions: Chest X-Ray 08/04/17 14:59 IMPRESSION: Stable cardiomegaly. No active pulmonary disease. Assessment & Plan - Diagnosis (1) Hypertensive emergency Is this a current diagnosis for this admission?: Yes (2) Chest pain Qualifiers: Chest pain type: unspecified Qualified Code(s): R07.9 - Chest pain, unspecified Is this a current diagnosis for this admission?: Yes (3) NSTEMI (non-ST elevated myocardial infarction) Is this a current diagnosis for this admission?: Yes (4) Dyslipidemia Is this a current diagnosis for this admission?: Yes (5) Cardiac defibrillator in situ Is this a current diagnosis for this admission?: Yes (6) Congestive heart failure Is this a current diagnosis for this admission?: Yes (7) Coronary artery disease Qualifiers: Coronary Disease-Associated Artery/Lesion type: unspecified vessel or lesion type Associated angina: angina presence unspecified Is this a current diagnosis for this admission?: Yes (8) Ischemic cardiomyopathy Is this a current diagnosis for this admission?: Yes (9) Type 2 diabetes mellitus Qualifiers: Diabetes mellitus complication status: with unspecified complications Diabetes mellitus retirement insulin use: without commercial census taker use Qualified Code( s): E11.8 - Type 2 diabetes mellitus with unspecified complications Is this a current diagnosis for this admission?: Yes - Notes Notes: Hypertensive emergency: Patient blood pressure was noted to be extremely high. Dr. Carroll's note not available. EKG not showing any acute ST-T wave changes. Troponin high could be related to just severe hypertension. Exact etiology of severe hypertension not clear. Patient maintains compliance with medication. At this point will optimize patient's antihypertensive therapy. Chest pain: Currently stable. Previous stress test report was reviewed. Patient tells me that he had coronary artery bypass graft surgery in 2004. His last invasive cardiac procedure was about 2 years ago at [facility] but he had stents placed. Will try to obtain those records. At this point will consider repeating the stress test. This will be done after optimizing medical management. Non-STEMI: This is based on chest pain and positive troponin I. Probably brought on by supply demand mismatch from severe hypertension but cannot rule out acute coronary syndrome. CHF: Currently compensated. Recommend optimization of management of CHF. Coronary artery disease: Currently stable. Medical management is being optimized. Cardiomyopathy: Patient has primary prevention single-chamber defibrillator in place. Diabetes: Recommend adequate management but avoid any hypo-or hyperglycemia. Dyslipidemia: LDL goal is less than 70 in this patient. Will increase Lipitor to total of 80 mg p.o. nightly. May add Zetia if needed. - Time Time Spent: 50 to 70 Minutes - CODE STATUS was discussed, patient remains full code. Surrogate decision-maker unchanged. Multiple medical problems were addressed. More than 50% of the time spent coordinating care, discussing management plans with involved caregivers. Management plans discussed with involved personnels. Medical decision making was of moderate to high complexity , patient's has multiple comorbidities. Medications reviewed and adjusted accordingly: Yes
--- NOTE | 2017-08-05 16:19 | PDOC H&P ---
History of Present Illness Admission Date/PCP: 08/04/17 19:51 ROSALBA CARROLL MD History of Present Illness: Patient 67-year-old male with a history of coronary artery disease with multiple coronary intervention including CABG and multiple stent placements, type 2 diabetes mellitus, ischemic cardiomyopathy. He came to the office with his daughter for evaluation of shortness of breath and chest pain, in the office a 12-lead E EKG was done, it showed old infarct but there was no acute ST segment elevation to suggest acute NM but the blood pressure recorded was over 200, he was given aspirin and rescue squad was called to the office. He was transferred from the office to the emergency room by EMS for evaluation, in the emergency room he was evaluated he was found to have elevated troponin, the blood pressure was in the emergency hypertensive range, he was started on intravenous nitroglycerin infusion and admission was advised. Patient is well- known to me from previous encounter and also from the office. Past Medical History Cardiac Medical History: Reports: Congestive Heart Failure, Coronary Artery Disease, Myocardial Infarction - six, Hyperlipidema, Hypertension Pulmonary Medical History: Reports: Asthma, Bronchitis, Chronic Obstructive Pulmonary Disease (COPD), Pneumonia Neurological Medical History: Denies: Seizures Endocrine Medical History: Reports: Diabetes Mellitus Type 2 GI Medical History: Reports: Gastroesophageal Reflux Disease Past Surgical History Past Surgical History: Reports: Cardiac Catheterization, Coronary Artery Bypass Graft - x 3, Coronary Stent - x 8, Pacemaker, Tonsillectomy Social History Smoking Status: Former Smoker Frequency of Alcohol Use: None Hx Recreational Drug Use: No Drugs: None Hx Prescription Drug Abuse: No - Advance Directive Resuscitation Status: Full Code Family History Family History: Hypertension. denies: CAD Parental Family History Reviewed: Yes Children Family History Reviewed: Yes Sibling(s) Family History Reviewed.: Yes Medication/Allergy Home Medications: Atorvastatin Calcium [Lipitor 40 mg Tablet] 40 mg PO QHS 08/04/17 Carvedilol [Coreg 25 mg Tablet] 1 tab PO BID 08/04/17 Hydralazine HCl [Apresoline 25 mg Tablet] 25 mg PO TID 08/04/17 Isosorb Dinit/Hydralazine HCl [Bidil 20-37.5 mg Tablet] 1 tab PO TID 08/04/17 Isosorbide Mononitrate [Isosorbide Mononitrate ER] 30 mg PO DAILY 08/04/17 Lisinopril [Zestril] 40 mg PO DAILY 08/04/17 Ranolazine [Ranexa] 1,000 mg PO BID 08/04/17 Sitagliptin Phos/Metformin HCl [Janumet 50-1,000 Mg Tablet] 1 each PO DAILY Ticagrelor [Brilinta 90 mg Tablet] 90 mg PO DAILY 08/04/17 Allergies/Adverse Reactions: Iodinated Contrast- Oral and IV Dye [IV Dye, Iodine Containing] Allergy ( Verified 01/27/15 06:29) Review of Systems Constitutional: ABSENT: chills, fever(s), headache(s), weight gain, weight loss Eyes: ABSENT: visual disturbances Ears: ABSENT: hearing changes Cardiovascular: PRESENT: chest pain, dyspnea on exertion Respiratory: ABSENT: cough, hemoptysis Gastrointestinal: ABSENT: abdominal pain, constipation, diarrhea, hematemesis, hematochezia, nausea, vomiting Genitourinary: ABSENT: dysuria, hematuria Musculoskeletal: ABSENT: joint swelling Integumentary: ABSENT: rash, wounds Neurological: ABSENT: abnormal gait, abnormal speech, confusion, dizziness, focal weakness, syncope Psychiatric: ABSENT: anxiety, depression, homidical ideation, suicidal ideation Endocrine: ABSENT: cold intolerance, heat intolerance, menstrual abnormalities, polydipsia, polyuria Hematologic/Lymphatic: ABSENT: easy bleeding, easy bruising, lymphadenopathy Physical Exam Vital Signs: Temp Pulse Resp BP Pulse Ox 98.0 F 79 18 123/66 100 08/05/17 12:00 08/05/17 14:00 08/05/17 12:00 08/05/17 12:00 08/05/17 12:00 Intake & Output 08/04/17 08/05/17 08/06/17 06:59 06:59 06:59 Intake Total 45 222 Output Total 0 Balance 45 222 Weight 109.1 kg General appearance: PRESENT: mild distress Head exam: PRESENT: atraumatic, normocephalic Eye exam: PRESENT: conjunctiva pink, EOMI, PERRLA Ear exam: PRESENT: normal external ear exam Mouth exam: PRESENT: moist, tongue midline Neck exam: PRESENT: full ROM Respiratory exam: PRESENT: rhonchi Cardiovascular exam: PRESENT: RRR, +S1, +S2 Pulses: PRESENT: normal dorsalis pedis pul, +2 pedal pulses bilateral Vascular exam: PRESENT: normal capillary refill GI/Abdominal exam: PRESENT: normal bowel sounds, soft Rectal exam: PRESENT: deferred Neurological exam: PRESENT: alert Psychiatric exam: PRESENT: appropriate affect, normal mood Skin exam: PRESENT: dry, intact, warm Results Laboratory Results: 08/05/17 03:35 08/05/17 03:35 08/04/17 08/05/17 08/05/17 21:30 03:35 03:35 WBC 6.2 RBC 5.66 H Hgb 16.2 Hct 48.4 MCV 85 MCH 28.5 MCHC 33.4 RDW 14.8 H Plt Count 167 Seg Neutrophils % 56.8 Lymphocytes % 26.8 Monocytes % 11.6 Eosinophils % 4.5 Basophils % 0.3 Absolute Neutrophils 3.5 Absolute Lymphocytes 1.7 Absolute Monocytes 0.7 Absolute Eosinophils 0.3 Absolute Basophils 0.0 Sodium 142.0 Potassium 4.0 Chloride 106 Carbon Dioxide 20 L Anion Gap 16 BUN 16 Creatinine 1.12 Est GFR ( Amer) > 60 Est GFR (Non-Af Amer) > 60 Glucose 78 Calcium 8.8 Total Bilirubin 1.1 AST 14 L ALT 34 Alkaline Phosphatase 54 Ammonia 16.2 Total Protein 6.4 Albumin 4.1 Triglycerides 141 Cholesterol 245.50 H LDL Cholesterol Direct 169 H VLDL Cholesterol 28.0 HDL Cholesterol 43 08/04/17 08/04/17 08/05/17 21:30 21:30 03:35 Creatine Kinase 108 CK-MB (CK-2) 1.44 1.64 Troponin I 0.136 0.168 NT-Pro-B Natriuret Pep 2600 H 08/05/17 08/05/17 08/05/17 03:35 11:11 11:11 Creatine Kinase 108 111 CK-MB (CK-2) 1.83 Troponin I 0.124 NT-Pro-B Natriuret Pep Impressions: Chest X-Ray 08/04/17 14:59 IMPRESSION: Stable cardiomegaly. No active pulmonary disease. Assessment & Plan - Diagnosis (1) Non-ST elevated myocardial infarction (non-STEMI) Is this a current diagnosis for this admission?: Yes Plan: Patient is admitted to the hospital started on antiplatelet Lovenox etc. the elevated troponin could be from non-STEMI all from a leak from his cardiomyopathy in the setting of hypertensive emergency (2) Hypertensive emergency Is this a current diagnosis for this admission?: Yes Plan: Continue nitroglycerin this will control blood pressure and also chest symptoms (3) AICD (automatic cardioverter/defibrillator) present Is this a current diagnosis for this admission?: Yes (4) Coronary artery disease Qualifiers: Coronary Disease-Associated Artery/Lesion type: unspecified vessel or lesion type Associated angina: angina presence unspecified Is this a current diagnosis for this admission?: Yes (5) Type 2 diabetes mellitus Qualifiers: Diabetes mellitus complication status: with neurologic complications Diabetes mellitus complication detail: with polyneuropathy Diabetes mellitus penitentiary insulin use: 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
--- NOTE | 2017-08-05 16:23 | PDOC PROGRESS REPORT ---
Subjective Progress Note for:: 08/05/17 Subjective:: Patient was seen by the bedside, he was seen by the front office help Dr. Vera, no longer requiring IV nitroglycerin, patient is much better Reason For Visit: HYPERTENSIVE EMERGENCY, NSTMI CAD, MULTIPLE Physical Exam Vital Signs: Temp Pulse Resp BP Pulse Ox 98.0 F 79 18 123/66 100 08/05/17 12:00 08/05/17 14:00 08/05/17 12:00 08/05/17 12:00 08/05/17 12:00 Intake & Output 08/04/17 08/05/17 08/06/17 06:59 06:59 06:59 Intake Total 45 222 Output Total 0 Balance 45 222 Weight 109.1 kg General appearance: PRESENT: no acute distress, well-developed, well-nourished Head exam: PRESENT: atraumatic, normocephalic Eye exam: PRESENT: conjunctiva pink, EOMI, PERRLA Ear exam: PRESENT: normal external ear exam Mouth exam: PRESENT: moist, tongue midline Neck exam: PRESENT: full ROM Respiratory exam: PRESENT: clear to auscultation yuly Cardiovascular exam: PRESENT: RRR, +S1, +S2 Vascular exam: PRESENT: normal capillary refill GI/Abdominal exam: PRESENT: normal bowel sounds, soft Rectal exam: PRESENT: deferred Neurological exam: PRESENT: alert Psychiatric exam: PRESENT: appropriate affect, normal mood Skin exam: PRESENT: dry, intact, warm. ABSENT: cyanosis, rash Results Laboratory Results: 08/05/17 03:35 08/05/17 03:35 08/04/17 08/05/17 08/05/17 21:30 03:35 03:35 WBC 6.2 RBC 5.66 H Hgb 16.2 Hct 48.4 MCV 85 MCH 28.5 MCHC 33.4 RDW 14.8 H Plt Count 167 Seg Neutrophils % 56.8 Lymphocytes % 26.8 Monocytes % 11.6 Eosinophils % 4.5 Basophils % 0.3 Absolute Neutrophils 3.5 Absolute Lymphocytes 1.7 Absolute Monocytes 0.7 Absolute Eosinophils 0.3 Absolute Basophils 0.0 Sodium 142.0 Potassium 4.0 Chloride 106 Carbon Dioxide 20 L Anion Gap 16 BUN 16 Creatinine 1.12 Est GFR ( Amer) > 60 Est GFR (Non-Af Amer) > 60 Glucose 78 Calcium 8.8 Total Bilirubin 1.1 AST 14 L ALT 34 Alkaline Phosphatase 54 Ammonia 16.2 Total Protein 6.4 Albumin 4.1 Triglycerides 141 Cholesterol 245.50 H LDL Cholesterol Direct 169 H VLDL Cholesterol 28.0 HDL Cholesterol 43 08/04/17 08/04/17 08/05/17 21:30 21:30 03:35 Creatine Kinase 108 CK-MB (CK-2) 1.44 1.64 Troponin I 0.136 0.168 NT-Pro-B Natriuret Pep 2600 H 08/05/17 08/05/17 08/05/17 03:35 11:11 11:11 Creatine Kinase 108 111 CK-MB (CK-2) 1.83 Troponin I 0.124 NT-Pro-B Natriuret Pep Impressions: Chest X-Ray 08/04/17 14:59 IMPRESSION: Stable cardiomegaly. No active pulmonary disease. Assessment & Plan - Diagnosis (1) Non-ST elevated myocardial infarction (non-STEMI) Is this a current diagnosis for this admission?: Yes (2) Hypertensive emergency Is this a current diagnosis for this admission?: Yes (3) AICD (automatic cardioverter/defibrillator) present Is this a current diagnosis for this admission?: Yes (4) Coronary artery disease Qualifiers: Coronary Disease-Associated Artery/Lesion type: unspecified vessel or lesion type Associated angina: angina presence unspecified Is this a current diagnosis for this admission?: Yes (5) Type 2 diabetes mellitus Qualifiers: Diabetes mellitus complication status: with neurologic complications Diabetes mellitus complication detail: with polyneuropathy 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
[2017-08-06] MEDS ORDERED: LOPERAMIDE HCL 2 MG CAPSULE PO PRN (01:21)
[2017-08-06] MEDS ORDERED: LOPERAMIDE HCL 2 MG CAPSULE PO ONE (01:45)
[2017-08-06 06:00] LABS: ABSOLUTE LYMPHOCYTES (AUTO) 1.1 10^3/uL (0.5-4.7); ABSOLUTE MONOCYTES (AUTO) 0.5 10^3/uL (0.1-1.4); ABSOLUTE NEUT (AUTO) 4.6 10^3/uL (1.7-8.2); BASOPHILS % (AUTO) 0.3 % (0-2); EOSINOPHILS % (AUTO) 0.5 % (0-6); HEMATOCRIT 45.8 % (37.9-51.0); HEMOGLOBIN 15.5 g/dL (13.5-17.0); LYMPHOCYTES % (AUTO) 17.6 % (13-45); MEAN CORPUSCULAR HEMOGLOBIN 28.9 pg (27.0-33.4); MEAN CORPUSCULAR HGB CONC 33.9 g/dL (32.0-36.0); MEAN CORPUSCULAR VOLUME 85 fl (80-97); MONOCYTES % (AUTO) 7.9 % (3-13); PLATELET COUNT 171 10^3/uL (150-450); RED BLOOD COUNT 5.38 10^6/uL (4.35-5.55); RED CELL DISTRIBUTION WIDTH 14.7 % (11.5-14.0); SEGMENTED NEUTROPHILS % (AUTO) 73.7 % (42-78); TOTAL CELLS COUNTED % (AUTO) 100 %; WHITE BLOOD COUNT 6.3 10^3/uL (4.0-10.5)
[2017-08-06] MEDS: ISOSORB DINIT/HYDRALAZINE HCL 20-37.5 MG TABLET PO SCH ×3 (06:08→23:13)
[2017-08-06] MEDS: HYDRALAZINE HCL 25 MG TABLET PO SCH ×3 (06:08→21:24)
[2017-08-06 06:21] LABS: ALANINE AMINOTRANSFERASE 25 U/L (21-72); ALBUMIN 4.1 g/dL (3.5-5.0); ALKALINE PHOSPHATASE 56 U/L (38-126); ANION GAP 15 (5-19); ASPARTATE AMINO TRANSFERASE 18 U/L (17-59); BILIRUBIN,DIRECT 0.3 mg/dL (0.0-0.4); BILIRUBIN,TOTAL 1.2 mg/dL (0.2-1.3); BLOOD UREA NITROGEN 14 mg/dL (7-20); CALCIUM 9.5 mg/dL (8.4-10.2); CARBON DIOXIDE 19 mmol/L (22-30); CHLORIDE 107 mmol/L (98-107); GLUCOSE 99 mg/dL (75-110); POTASSIUM 4.2 mmol/L (3.6-5.0); SODIUM 140.8 mmol/L (137-145); TOTAL PROTEIN 6.8 g/dL (6.3-8.2)
[2017-08-06] MEDS: RANOLAZINE 500 MG TAB.SR.12H PO SCH ×2 (09:29→21:24)
[2017-08-06] MEDS: ENOXAPARIN SODIUM INJ 40 MG/0.4 ML DISP.SYRIN SUBCUT SCH (09:29)
[2017-08-06] MEDS: ISOSORBIDE MONONITRATE 30 MG TAB.ER.24H PO SCH (09:30)
[2017-08-06] MEDS: SITAGLIPTIN PHOSPHATE 50 MG TABLET PO SCH (09:30)
[2017-08-06] MEDS: CARVEDILOL 12.5 MG TABLET PO SCH ×2 (09:30→23:13)
[2017-08-06] MEDS: METFORMIN HCL 500 MG TABLET PO SCH (09:30)
--- NOTE | 2017-08-06 10:04 | Physician Advisory Note ---
Physician Advisor ProgressNote .: Pursuant to the plan for [facility], I have reviewed the medical record for this patient. Physician Advisor Statement: Please consider documenting, if you agree: 1. "hypertensive emergency causing " (the NV? - need to explicitly state what organ dysfunction is caused by hypertensive emergency) 2. NSTEMI: please specify most likely wall (ant/inf/other) & coronary artery ( LAD, RCA, Lt circumflex, ...) involved Thanks! CK
[2017-08-06] MEDS: TICAGRELOR 90 MG TABLET PO SCH (10:45)
[2017-08-06] MEDS: LISINOPRIL 10 MG TABLET PO SCH (10:45)
--- NOTE | 2017-08-06 17:57 | XCELERA REPORT ---
[address] [address] Transthoracic Echocardiogram Report Name: MALAIKA DIALLO JR Age: 67 yrs Gender: Male : 1950 Patient Status: Inpatient Patient Location: [address] [place], [place] [id number] Study Date: 08/06/2017 03:41 PM Height: 73 in Weight: 240 lb BSA: 2.3 m2 Reason For Study: Non-STEMI Ordering Physician: ARIANA YBARRA Performed By: Tamica Hylton Interpretation Summary The Ejection Fraction estimate is 35-40% Left ventricular systolic function is moderately reduced. There is mild to moderate concentric left ventricular hypertrophy. The left ventricle is grossly normal size. Doppler measurements suggest pseudonormalized left ventricular relaxation, which is associated with grade II/IV or mild to moderate diastolic dysfunction Apical wall motion abnormality may reflect pacemaker activation Cannot r/o apical mild dyskinesia The right ventricle is mildly dilated. The right ventricular systolic function is normal. The left atrium is moderately dilated. The right atrium is mild to moderately dilated. There is a mild amount of mitral regurgitation There is no mitral valve stenosis. No aortic regurgitation is present. There is no aortic valve stenosis There is a trace or physiologic amount of tricuspid regurgitation Tricuspid regurgitation jet envelope not well defined to measure RV systolic pressure accurately. The aortic root is not well visualized but is probably normal size. The inferior vena cava was not well visualized There is no pericardial effusion. MMode/2D Measurements & Calculations RVDd: 3.0 cm LVIDd: 6.4 cm FS: 14.0 % EPSS: 1.5 cm IVSd: 1.1 cm LVIDs: 5.5 cm EDV(Teich): 210.7 ml LVPWd: 1.0 cm ESV(Teich): 149.2 ml EF(Teich): 29.2 % Ao root diam: 3.2 cm LVOT diam: 2.5 cm Ao root area: 7.8 cm2 LVOT area: 4.7 cm2 Doppler Measurements & Calculations MV E max kenyatta: MV dec slope: Ao V2 max: LV V1 max P.3 cm/sec 490.7 cm/sec2 172.5 cm/sec 4.8 mmHg MV A max kenyatta: MV dec time: Ao max PG: LV V1 max: 34.8 cm/sec 0.19 sec 11.9 mmHg 109.0 cm/sec MV E/A: 2.7 TJ(V,D): 3.0 cm2 PA V2 max: TR max kenyatta: 97.3 cm/sec 188.7 cm/sec PA max PG: TR max P.2 mmHg 3.8 mmHg Left Ventricle The left ventricle is grossly normal size. There is mild to moderate concentric left ventricular hypertrophy. Left ventricular systolic function is moderately reduced. The Ejection Fraction estimate is 35-40%. Doppler measurements suggest pseudonormalized left ventricular relaxation, which is associated with grade II/IV or mild to moderate diastolic dysfunction. Apical wall motion abnormality may reflect pacemaker activation. Cannot r/o apical mild dyskinesia. Right Ventricle The right ventricle is mildly dilated. There is normal right ventricular wall thickness. The right ventricular systolic function is normal. Atria The right atrium is mild to moderately dilated. The left atrium is moderately dilated. Interarterial septum not well visualized and not well dopplered. Cannot comment on ASD/PFO presence. Mitral Valve The mitral valve is grossly normal. There is no mitral valve stenosis. There is a mild amount of mitral regurgitation. Aortic Valve The aortic valve is grossly normal. There is no aortic valve stenosis. No aortic regurgitation is present. Tricuspid Valve The tricuspid valve is not well visualized, but is grossly normal. There is no tricuspid stenosis. There is a trace or physiologic amount of tricuspid regurgitation. Tricuspid regurgitation jet envelope not well defined to measure RV systolic pressure accurately. Pulmonic Valve The pulmonic valve is not well visualized. Great Vessels The aortic root is not well visualized but is probably normal size. The inferior vena cava was not well visualized. Effusions There is no pericardial effusion. Incidental Findings Pacemaker wire noted. : ARIANA YBARRA > Ariana Ybarra
--- NOTE | 2017-08-06 18:32 | PDOC PROGRESS REPORT ---
Subjective Progress Note for:: 08/06/17 Subjective:: Patient seems to be doing better with gradual improvement. Pt is denying any chest arm or neck discomfort. Patient denying any PND, orthopnea. Patient denied any sustained palpitations, dizziness, syncope, near syncope. Patient denying any fever chills. Patient denying any other significant discomfort. Patient is maintaining sinus rhythm. Review of systems: Rest review of systems negative. Medications: Medications have been reviewed. Reason For Visit: HYPERTENSIVE EMERGENCY, NSTMI CAD, MULTIPLE Physical Exam Vital Signs: Temp Pulse Resp BP Pulse Ox 99.1 F 89 20 120/68 99 08/06/17 16:23 08/06/17 16:23 08/06/17 16:23 08/06/17 16:23 08/06/17 16:23 Intake & Output 08/05/17 08/06/17 08/07/17 06:59 06:59 06:59 Intake Total 45 767 138 Output Total 0 Balance 45 767 138 Weight 109.1 kg 110.2 kg Exam: GENERAL: well-nourished and in no acute distress. Alert and oriented x3 HEAD: Atraumatic, normocephalic. EYES: Pupils equal round and reactive to light, extraocular movements intact, sclera anicteric, conjunctiva are normal. ENT: TMs normal, nares patent, oropharynx clear without exudates. Moist mucous membranes. No oral ulcerations or bleeding gums noted NECK: supple without lymphadenopathy. Trachea is central. No cervical or axillary lymphadenopathy noted. Carotids are 2+, JVD WNL LUNGS: Respiration seems nonlabored, no significant accessory muscle action noted. Breath sounds clear to auscultation bilaterally and equal noted. No wheezes rales or rhonchi noted. No significant dullness noted on percussion. CHEST: Palpation of the chest wall shows no significant chest wall tenderness. No other significant abnormalities noted. Defibrillator noted in place. 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 ABDOMEN: Soft, no significant tenderness appreciated, normoactive bowel sounds. No guarding, no rebound. No rigidity noted . No masses appreciated. EXTREMITIES: Pedal pulses are 1-2+, no calf tenderness noted. No clubbing or cyanosis.trace to 1+ pedal edema noted NEUROLOGICAL: Focused neurological exam showed no significant neurologic deficit. Normal speech, no focal weakness appreciated. PSYCH: Normal mood, normal affect. Judgment and insight within normal limits. SKIN: No significant ecchymosis, rash, ulcerations or signs of pruritus noted. MUSCULOSKELETAL EXAM: No significant joint swelling noted. Results Laboratory Results: 08/06/17 05:06 08/06/17 05:06 08/06/17 08/06/17 05:06 05:06 WBC 6.3 RBC 5.38 Hgb 15.5 Hct 45.8 MCV 85 MCH 28.9 MCHC 33.9 RDW 14.7 H Plt Count 171 Seg Neutrophils % 73.7 Lymphocytes % 17.6 Monocytes % 7.9 Eosinophils % 0.5 Basophils % 0.3 Absolute Neutrophils 4.6 Absolute Lymphocytes 1.1 Absolute Monocytes 0.5 Absolute Eosinophils 0.0 Absolute Basophils 0.0 Sodium 140.8 Potassium 4.2 Chloride 107 Carbon Dioxide 19 L Anion Gap 15 BUN 14 Creatinine 1.16 Est GFR ( Amer) > 60 Est GFR (Non-Af Amer) > 60 Glucose 99 Calcium 9.5 Total Bilirubin 1.2 AST 18 ALT 25 Alkaline Phosphatase 56 Total Protein 6.8 Albumin 4.1 08/04/17 08/04/17 08/05/17 21:30 21:30 03:35 Creatine Kinase 108 CK-MB (CK-2) 1.44 1.64 Troponin I 0.136 0.168 NT-Pro-B Natriuret Pep 2600 H 08/05/17 08/05/17 08/05/17 03:35 11:11 11:11 Creatine Kinase 108 111 CK-MB (CK-2) 1.83 Troponin I 0.124 NT-Pro-B Natriuret Pep 08/06/17 05:06 Creatine Kinase CK-MB (CK-2) Troponin I NT-Pro-B Natriuret Pep 967 H EKG Comments: Telemetry strips shows sinus rhythm without any sustained tacky or bradycardia arrhythmias. Impressions: Chest X-Ray 08/04/17 14:59 IMPRESSION: Stable cardiomegaly. No active pulmonary disease. Assessment & Plan - Diagnosis (1) Hypertensive emergency Is this a current diagnosis for this admission?: Yes (2) Chest pain Qualifiers: Chest pain type: unspecified Qualified Code(s): R07.9 - Chest pain, unspecified Is this a current diagnosis for this admission?: Yes (3) NSTEMI (non-ST elevated myocardial infarction) Is this a current diagnosis for this admission?: Yes (4) Dyslipidemia Is this a current diagnosis for this admission?: Yes (5) Cardiac defibrillator in situ Is this a current diagnosis for this admission?: Yes (6) Congestive heart failure Is this a current diagnosis for this admission?: Yes (7) Coronary artery disease Qualifiers: Coronary Disease-Associated Artery/Lesion type: unspecified vessel or lesion type Associated angina: angina presence unspecified Is this a current diagnosis for this admission?: Yes (8) Ischemic cardiomyopathy Is this a current diagnosis for this admission?: Yes (9) Type 2 diabetes mellitus Qualifiers: Diabetes mellitus complication status: with unspecified complications 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 Hypertensive emergency: Patient blood pressure was noted to be extremely high. Dr. Rodrigues's note reviewed. Blood pressure in the office was over 200 mmHg.. EKG not showing any acute ST-T wave changes. Troponin high could be related to just severe hypertension. Exact etiology of severe hypertension not clear. Patient maintains compliance with medication. At this point will optimize patient's antihypertensive therapy. Patient currently doing reasonably well on medical management without any recurrence of chest pain. Chest pain: Currently stable. Previous stress test report was reviewed. Patient tells me that he had coronary artery bypass graft surgery in 2004. His last invasive cardiac procedure was about 2 years ago at [facility] but he had stents placed. Will try to obtain those records. Non-STEMI: This is based on chest pain and positive troponin I. Probably brought on by supply demand mismatch from severe hypertension but cannot rule out acute coronary syndrome. 2D echo obtained showed LVEF seems improved from last echocardiogram. Continue current medical management. CHF: Currently compensated. Recommend optimization of management of CHF. Coronary artery disease: Currently stable. Medical management is being optimized. Cardiomyopathy: Patient has primary prevention single-chamber defibrillator in place. Diabetes: Recommend adequate management but avoid any hypo-or hyperglycemia. Dyslipidemia: LDL goal is less than 70 in this patient. Will increase Lipitor to total of 80 mg p.o. nightly. May add Zetia if needed. Recommend lipid panel prior to discharge so that we can assess patient's compliance as outpatient. - Time Time with patient: Greater than 35 minutes - CODE STATUS was discussed, patient remains full code. Surrogate decision-maker unchanged. Multiple medical problems were addressed. More than 50% of the time spent coordinating care, discussing management plans with involved caregivers. Management plans discussed with involved personnels. Medical decision making was of moderate to high complexity, patient's has multiple comorbidities. Medications reviewed and adjusted accordingly: Yes
--- NOTE | 2017-08-06 22:03 | PDOC PROGRESS REPORT ---
Subjective Progress Note for:: 08/06/17 Subjective:: Patient is seen by the bedside improving,He is scheduled for a nuclear stress test in the morning Reason For Visit: HYPERTENSIVE EMERGENCY, NSTMI CAD, MULTIPLE Physical Exam Vital Signs: Temp Pulse Resp BP Pulse Ox 98.6 F 90 20 134/83 H 99 08/06/17 20:11 08/06/17 20:11 08/06/17 20:11 08/06/17 20:11 08/06/17 20:11 Intake & Output 08/05/17 08/06/17 08/07/17 06:59 06:59 06:59 Intake Total 45 767 675 Output Total 0 Balance 45 767 675 Weight 109.1 kg 110.2 kg General appearance: PRESENT: no acute distress, well-developed, well-nourished Head exam: PRESENT: atraumatic, normocephalic Eye exam: PRESENT: conjunctiva pink, EOMI, PERRLA Ear exam: PRESENT: normal external ear exam Mouth exam: PRESENT: moist, tongue midline Neck exam: PRESENT: full ROM Cardiovascular exam: PRESENT: RRR, +S1, +S2 Pulses: PRESENT: normal dorsalis pedis pul, +2 pedal pulses bilateral Vascular exam: PRESENT: normal capillary refill GI/Abdominal exam: PRESENT: normal bowel sounds, soft Rectal exam: PRESENT: deferred Neurological exam: PRESENT: alert Psychiatric exam: PRESENT: appropriate affect, normal mood. ABSENT: homicidal ideation, suicidal ideation Skin exam: PRESENT: dry, intact, warm Results Laboratory Results: 08/06/17 05:06 08/06/17 05:06 08/06/17 08/06/17 05:06 05:06 WBC 6.3 RBC 5.38 Hgb 15.5 Hct 45.8 MCV 85 MCH 28.9 MCHC 33.9 RDW 14.7 H Plt Count 171 Seg Neutrophils % 73.7 Lymphocytes % 17.6 Monocytes % 7.9 Eosinophils % 0.5 Basophils % 0.3 Absolute Neutrophils 4.6 Absolute Lymphocytes 1.1 Absolute Monocytes 0.5 Absolute Eosinophils 0.0 Absolute Basophils 0.0 Sodium 140.8 Potassium 4.2 Chloride 107 Carbon Dioxide 19 L Anion Gap 15 BUN 14 Creatinine 1.16 Est GFR ( Amer) > 60 Est GFR (Non-Af Amer) > 60 Glucose 99 Calcium 9.5 Total Bilirubin 1.2 AST 18 ALT 25 Alkaline Phosphatase 56 Total Protein 6.8 Albumin 4.1 08/04/17 08/04/17 08/05/17 21:30 21:30 03:35 Creatine Kinase 108 CK-MB (CK-2) 1.44 1.64 Troponin I 0.136 0.168 NT-Pro-B Natriuret Pep 2600 H 08/05/17 08/05/17 08/05/17 03:35 11:11 11:11 Creatine Kinase 108 111 CK-MB (CK-2) 1.83 Troponin I 0.124 NT-Pro-B Natriuret Pep 08/06/17 05:06 Creatine Kinase CK-MB (CK-2) Troponin I NT-Pro-B Natriuret Pep 967 H Impressions: Chest X-Ray 08/04/17 14:59 IMPRESSION: Stable cardiomegaly. No active pulmonary disease. Assessment & Plan - Diagnosis (1) Non-ST elevated myocardial infarction (non-STEMI) Is this a current diagnosis for this admission?: Yes (2) Hypertensive emergency Is this a current diagnosis for this admission?: Yes (3) AICD (automatic cardioverter/defibrillator) present Is this a current diagnosis for this admission?: Yes (4) Coronary artery disease Qualifiers: Coronary Disease-Associated Artery/Lesion type: unspecified vessel or lesion type Associated angina: angina presence unspecified Is this a current diagnosis for this admission?: Yes (5) Type 2 diabetes mellitus Qualifiers: Diabetes mellitus complication status: with neurologic complications Diabetes mellitus complication detail: with polyneuropathy Diabetes mellitus chcf insulin use: without roller inspector use Qualified Code(s): E11.42 - Type 2 diabetes mellitus with diabetic polyneuropathy Is this a current diagnosis for this admission?: Yes
[2017-08-06] MEDS: ATORVASTATIN CALCIUM 40 MG TABLET PO SCH (23:12)
[2017-08-07 05:50] LABS: ABSOLUTE EOSINOPHILS # (AUTO) 0.1 10^3/uL (0.0-0.6); ABSOLUTE LYMPHOCYTES (AUTO) 1.4 10^3/uL (0.5-4.7); ABSOLUTE MONOCYTES (AUTO) 0.7 10^3/uL (0.1-1.4); ABSOLUTE NEUT (AUTO) 4.5 10^3/uL (1.7-8.2); BASOPHILS % (AUTO) 0.5 % (0-2); EOSINOPHILS % (AUTO) 2.2 % (0-6); HEMOGLOBIN 16.1 g/dL (13.5-17.0); LYMPHOCYTES % (AUTO) 20.6 % (13-45); MEAN CORPUSCULAR HGB CONC 34.2 g/dL (32.0-36.0); MEAN CORPUSCULAR VOLUME 85 fl (80-97); MONOCYTES % (AUTO) 10.2 % (3-13); PLATELET COUNT 180 10^3/uL (150-450); RED BLOOD COUNT 5.54 10^6/uL (4.35-5.55); RED CELL DISTRIBUTION WIDTH 15.3 % (11.5-14.0); SEGMENTED NEUTROPHILS % (AUTO) 66.5 % (42-78); TOTAL CELLS COUNTED % (AUTO) 100 %; WHITE BLOOD COUNT 6.7 10^3/uL (4.0-10.5)
[2017-08-07] MEDS: ISOSORB DINIT/HYDRALAZINE HCL 20-37.5 MG TABLET PO SCH ×2 (06:01→13:59)
[2017-08-07 06:02] LABS: ALANINE AMINOTRANSFERASE 27 U/L (21-72); ALBUMIN 3.9 g/dL (3.5-5.0); ALKALINE PHOSPHATASE 50 U/L (38-126); ANION GAP 10 (5-19); ASPARTATE AMINO TRANSFERASE 16 U/L (17-59); BILIRUBIN,DIRECT 0.5 mg/dL (0.0-0.4); BILIRUBIN,TOTAL 1.3 mg/dL (0.2-1.3); BLOOD UREA NITROGEN 17 mg/dL (7-20); CALCIUM 9.2 mg/dL (8.4-10.2); CARBON DIOXIDE 21 mmol/L (22-30); CHLORIDE 108 mmol/L (98-107); GLUCOSE 95 mg/dL (75-110); POTASSIUM 4.2 mmol/L (3.6-5.0); SODIUM 139.2 mmol/L (137-145); TOTAL PROTEIN 6.9 g/dL (6.3-8.2)
[2017-08-07] MEDS: HYDRALAZINE HCL 25 MG TABLET PO SCH ×2 (06:02→13:58)
[2017-08-07] MEDS ORDERED: ATORVASTATIN CALCIUM 40 MG TABLET PO SCH (09:47)
[2017-08-07] MEDS: ENOXAPARIN SODIUM INJ 40 MG/0.4 ML DISP.SYRIN SUBCUT SCH (10:08)
[2017-08-07] MEDS: LISINOPRIL 10 MG TABLET PO SCH (10:09)
[2017-08-07] MEDS: ISOSORBIDE MONONITRATE 30 MG TAB.ER.24H PO SCH (10:10)
[2017-08-07] MEDS: CARVEDILOL 12.5 MG TABLET PO SCH (10:11)
[2017-08-07] MEDS: TICAGRELOR 90 MG TABLET PO SCH (10:32)
[2017-08-07] MEDS: SITAGLIPTIN PHOSPHATE 50 MG TABLET PO SCH (10:32)
[2017-08-07] MEDS: METFORMIN HCL 500 MG TABLET PO SCH (10:32)
[2017-08-07] MEDS: RANOLAZINE 500 MG TAB.SR.12H PO SCH (10:33)
--- NOTE | 2017-08-07 13:32 | DRAGON STRESS TEST REPORT ---
INTRAVENOUS LEXISCAN CARDIOLITE STRESS TEST USING SINGLE PHOTON EMMISION COMPUTERIZED TOMOGRAPHIC. DATE OF PROCEDURE: August 07, 2017, INDICATION : Non-STEMI, elevated troponin I CARDIAC RISK FACTORS: Hypertension, dyslipidemia RESTING EKG: Sinus rhythm with nonspecific IVCD STRESS EKG: No significant changes noted with LexiScan bolus REASON FOR TERMINATION: Protocol. PROCEDURE REPORT: Baseline heart rate 88 beats per minute with blood pressure of 133/80. Patient had no significant complaints. Heart rate at 2 minutes post bolus 104 with a blood pressure of 120/77. 3 minutes post bolus heart rate 99 with blood pressure of 130/78. No significant EKG changes were noted. Patient had no significant complaints during the procedure or postprocedure. Patient injected with Aminophyllin 75 mg at 3 minutes or later after Lexiscan bolus. CONCLUSIONS: Normal EKG and hemodynamic response to IV LexiScan. NUCLEAR DATA: At rest the patient was given 13.83 millicuries of technetium 99 sestamibi injected intravenously. As per protocol rest gated SPECT images were obtained. On day of stress test, the patient was given intravenous LexiScan at a dose of 0.4 mg in 5 mL intravenously, followed by flush with normal saline. Subsequently the stress dose of 42.3 millicuries of technetium 99 sestamibi was injected intravenously. As per protocol stress gated images were obtained. NUCLEAR INTERPRETATION: Both raw and processed data were used for interpretation. Visual, qualitative, computer-generated quantitative data was used. There was good myocardial uptake of technetium compound. Motion artifact and soft tissue attenuations were noted. Increased visceral uptake was noted. No definitive areas of transient perfusion defect noted, No definitive areas of fixed perfusion defect or scars noted. EKG gated imaging showed LV EF at 16 %, rest and stress gated EF similar visually. Akinesia noted of the inferolateral wall and apex of the left ventricle. T. I D. ratio was 1.08. Lung heart ratio noted to be within normal limits 0.39. No significant extracardiac and abnormal radiotracer activities were noted. RV free wall uptake was noted to be WNL. IMPRESSION: Also refer to comments under nuclear interpretation. Also test results needs to be interpreted in the context of pretest probability. 1. No definitive areas of transient perfusion defect noted. May consider viability determination if clinically indicated. 2. Severe fixed defect indicative of severe scar noted involving the inferolateral wall of the left ventricle and LV apex. 3. EKG gated imaging shows left ventricular ejection fraction of approx. 16 %. Akinesia noted of the inferolateral wall of the left ventricle and LV apex. 4. Clinical correlation requested as occasionally single vessel disease or balanced ischemia could be missed. In approximately 10% of the cases Lexiscan may not cause adequate vasodilatory stress. RECOMMENDATIONS: Aggressive risk factor modification and medical management. Further evaluation may be needed if continued symptoms or other high risk indicators are noted on clinical evaluation. Close cardiology follow-up is also recommended. Clinical correlation with echocardiogram derived ejection fraction. Inability to exercise by itself can lead to increased cardiovascular event risks. Consider cardiology consultation and or follow-up if clinically indicated. I am available for cardiology evaluation and consultation if requested by the catia designer, unless patient already has a surgical resident. LATRICIA
[2017-08-07] MEDS ORDERED: AMINOPHYLLINE INJ/PF 250 MG/10 ML SDV IV ONE (14:00)
[2017-08-07] MEDS ORDERED: REGADENOSON INJ 0.4 MG/5 ML DISP.SYRIN IV ONE (14:00)
[2017-08-07 16:56] LABS: CHOLESTEROL 182.54 mg/dL (0-200); TRIGLYCERIDES 82 mg/dL (<150); VLDL CHOLESTEROL 16.4 mg/dL (10-31)
[2017-08-07 17:07] LABS: DIRECT LDL 115 mg/dL (<100)
--- NOTE | 2017-08-07 18:37 | Progress Note ---
Provider Note Provider Note: Nuclear stress test results were reviewed with the patient. This was also compared with previous nuclear stress test. Do not feel there is significant changes. Patient predominantly has severe fixed defect involving the LV apex and inferolateral wall of the left ventricle. No definite ischemia noted. Recommend aggressive risk factor modification and management. Will have low threshold for cardiac cath if patient continues to have significant symptoms. At this point will just recommend very close outpatient observation and optimization of medical therapy. Discussed with Dr. Rodrigues.
[2017-08-07 18:58] VITALS: BP 123/66
--- NOTE | 2017-08-07 21:37 | PDOC DISCHARGE SUMMARY ---
General - Admit/Disc Date/PCP Admission Date/Primary Care Provider: 08/04/17 19:51 ROSALBA CARROLL MD Discharge Date: 08/07/17 - Discharge Diagnosis (1) Non-ST elevated myocardial infarction (non-STEMI) Is this a current diagnosis for this admission?: Yes (2) Hypertensive emergency Is this a current diagnosis for this admission?: Yes (3) AICD (automatic cardioverter/defibrillator) present Is this a current diagnosis for this admission?: Yes (4) Coronary artery disease Is this a current diagnosis for this admission?: Yes (5) Type 2 diabetes mellitus Is this a current diagnosis for this admission?: Yes - Additional Information Resuscitation Status: Full Code Discharge Diet: Cardiac, Diabetic Discharge Activity: Activity As Tolerated Prescriptions: Atorvastatin Calcium [Lipitor 40 mg Tablet] 40 mg PO QHS #90 tablet Carvedilol [Coreg 25 mg Tablet] 1 tab PO BID #60 tablet Hydralazine HCl [Apresoline 25 mg Tablet] 25 mg PO TID #90 tablet Isosorb Dinit/Hydralazine HCl [Bidil 20-37.5 mg Tablet] 1 tab PO TID #90 tablet Lisinopril [Zestril] 40 mg PO DAILY #90 tablet Ranolazine [Ranexa] 1,000 mg PO BID #180 tab.er.12h Sitagliptin Phos/Metformin HCl [Janumet 50-1,000 mg Tablet] 1 each PO BID #180 tablet Ticagrelor [Brilinta 90 mg Tablet] 90 mg PO DAILY #90 tablet Home Medications: Atorvastatin Calcium [Lipitor 40 mg Tablet] 40 mg PO QHS #90 tablet 08/07/17 Carvedilol [Coreg 25 mg Tablet] 1 tab PO BID #60 tablet 08/07/17 Hydralazine HCl [Apresoline 25 mg Tablet] 25 mg PO TID #90 tablet 08/07/17 Isosorb Dinit/Hydralazine HCl [Bidil 20-37.5 mg Tablet] 1 tab PO TID #90 tablet 08/07/17 Lisinopril [Zestril] 40 mg PO DAILY #90 tablet 08/07/17 Ranolazine [Ranexa] 1,000 mg PO BID #180 tab.er.12h 08/07/17 Sitagliptin Phos/Metformin HCl [Janumet 50-1,000 mg Tablet] 1 each PO BID #180 tablet 08/07/17 Ticagrelor [Brilinta 90 mg Tablet] 90 mg PO DAILY #90 tablet 08/07/17 History of Present Illness History of Present Illness: Patient 67-year-old male with a history of coronary artery disease with multiple coronary intervention including CABG and multiple stent placements, type 2 diabetes mellitus, ischemic cardiomyopathy. He came to the office with his daughter for evaluation of shortness of breath and chest pain, in the office a 12-lead E EKG was done, it showed old infarct but there was no acute ST segment elevation to suggest acute MN but the blood pressure recorded was over 200, he was given aspirin and rescue squad was called to the office. He was transferred from the office to the emergency room by EMS for evaluation, in the emergency room he was evaluated he was found to have elevated troponin, the blood pressure was in the emergency hypertensive range, he was started on intravenous nitroglycerin infusion and admission was advised. Patient is well- known to me from previous encounter and also from the office. Hospital Course Hospital Course: Patient was admitted for the management of non-ST elevated MN, hypertensive emergency. He was treated with IV nitroglycerin infusion, anticoagulant, he was seen by Dr. Vera, cardiology. A 2D echo was done and also a nuclear stress test, the nuclear stress test is no different from the last stress test he had about a year ago.The 2D echo showed ejection fraction of 35-40% of left ventricle Physical Exam Vital Signs: Temp Pulse Resp BP Pulse Ox 98.6 F 88 18 123/66 100 08/07/17 18:56 08/07/17 18:56 08/07/17 18:56 08/07/17 18:56 08/07/17 18:56 Intake & Output 08/06/17 08/07/17 08/08/17 06:59 06:59 06:59 Intake Total 767 1215 10 Balance 767 1215 10 Weight 110.2 kg 110.3 kg General appearance: PRESENT: no acute distress, well-developed, well-nourished Head exam: PRESENT: atraumatic, normocephalic Eye exam: PRESENT: conjunctiva pink, EOMI, PERRLA Ear exam: PRESENT: normal external ear exam Mouth exam: PRESENT: moist, tongue midline Neck exam: PRESENT: full ROM Respiratory exam: PRESENT: clear to auscultation yuly Cardiovascular exam: PRESENT: RRR, +S1, +S2 Pulses: PRESENT: normal dorsalis pedis pul, +2 pedal pulses bilateral Vascular exam: PRESENT: normal capillary refill GI/Abdominal exam: PRESENT: normal bowel sounds, soft Rectal exam: PRESENT: deferred Neurological exam: PRESENT: alert, awake, oriented to person, oriented to place , oriented to time, oriented to situation, CN II-XII grossly intact Psychiatric exam: PRESENT: appropriate affect, normal mood Skin exam: PRESENT: dry, intact, warm Results Laboratory Results: 08/07/17 05:31 08/07/17 05:31 08/07/17 08/07/17 08/07/17 05:31 05:31 05:31 WBC 6.7 RBC 5.54 Hgb 16.1 Hct 47.0 MCV 85 MCH 29.0 MCHC 34.2 RDW 15.3 H Plt Count 180 Seg Neutrophils % 66.5 Lymphocytes % 20.6 Monocytes % 10.2 Eosinophils % 2.2 Basophils % 0.5 Absolute Neutrophils 4.5 Absolute Lymphocytes 1.4 Absolute Monocytes 0.7 Absolute Eosinophils 0.1 Absolute Basophils 0.0 Sodium 139.2 Potassium 4.2 Chloride 108 H Carbon Dioxide 21 L Anion Gap 10 BUN 17 Creatinine 1.36 H Est GFR ( Amer) > 60 Est GFR (Non-Af Amer) 53 L Glucose 95 Calcium 9.2 Total Bilirubin 1.3 AST 16 L ALT 27 Alkaline Phosphatase 50 Total Protein 6.9 Albumin 3.9 Triglycerides 82 Cholesterol 182.54 LDL Cholesterol Direct 115 H VLDL Cholesterol 16.4 HDL Cholesterol 47 08/04/17 08/04/17 08/05/17 21:30 21:30 03:35 Creatine Kinase 108 CK-MB (CK-2) 1.44 1.64 Troponin I 0.136 0.168 NT-Pro-B Natriuret Pep 2600 H 08/05/17 08/05/17 08/05/17 03:35 11:11 11:11 Creatine Kinase 108 111 CK-MB (CK-2) 1.83 Troponin I 0.124 NT-Pro-B Natriuret Pep 08/06/17 08/07/17 05:06 05:31 Creatine Kinase CK-MB (CK-2) Troponin I NT-Pro-B Natriuret Pep 967 H 739 Impressions: Chest X-Ray 08/04/17 14:59 IMPRESSION: Stable cardiomegaly. No active pulmonary disease. Qualifiers - * PATEINT BEING DISCHARGED WITH ANY OF THE FOLLOWING DIAGNOSIS?: MN MN Pt being discharged on Aspirin therapy?: Yes MN Pt being discharged on Statins?: Yes MN Pt discharged ACEI/ARBS?: Yes HF Pt being discharged on ACEI for LVEF less than 40%?: Yes
[2017-08-07] MEDS ORDERED: ATORVASTATIN CALCIUM 80 MG TABLET PO SCH (22:00)
--- NOTE | 2017-08-08 16:23 | PDOC PROGRESS REPORT ---
Subjective Progress Note for:: 08/07/17 Subjective:: Patient seems to be doing better with gradual improvement. Pt is denying any chest arm or neck discomfort. Patient denying any PND, orthopnea. Patient denied any sustained palpitations, dizziness, syncope, near syncope. Patient denying any fever chills. Patient denying any other significant discomfort. Patient is maintaining sinus rhythm. Review of systems: Rest review of systems negative. Medications: Medications have been reviewed. Reason For Visit: HYPERTENSIVE EMERGENCY, NSTMI CAD, MULTIPLE Physical Exam Vital Signs: Temp Pulse Resp BP Pulse Ox 98.6 F 88 18 142/77 H 100 08/07/17 15:30 08/07/17 15:30 08/07/17 15:30 08/07/17 15:30 08/07/17 15:30 Intake & Output 08/06/17 08/07/17 08/08/17 06:59 06:59 06:59 Intake Total 767 1215 10 Balance 767 1215 10 Weight 110.2 kg 110.3 kg Exam: GENERAL: well-nourished and in no acute distress. Alert and oriented x3 HEAD: Atraumatic, normocephalic. EYES: Pupils equal round and reactive to light, extraocular movements intact, sclera anicteric, conjunctiva are normal. ENT: TMs normal, nares patent, oropharynx clear without exudates. Moist mucous membranes. No oral ulcerations or bleeding gums noted NECK: supple without lymphadenopathy. Trachea is central. No cervical or axillary lymphadenopathy noted. Carotids are 2+, JVD WNL LUNGS: Respiration seems nonlabored, no significant accessory muscle action noted. Breath sounds clear to auscultation bilaterally and equal noted. No wheezes rales or rhonchi noted. No significant dullness noted on percussion. CHEST: Palpation of the chest wall shows no significant chest wall tenderness. No other significant abnormalities noted. Defibrillator noted left-sided chest. HEART: [place] [address] [employer], No PSH, 1/6 SHAYLEE aortic area, 1/6 alcantar systolic murmur mitral area, no rubs, no gallops. ABDOMEN: Soft, no significant tenderness appreciated, normoactive bowel sounds. No guarding, no rebound. No rigidity noted . No masses appreciated. EXTREMITIES: Pedal pulses are 1-2+, no calf tenderness noted. No clubbing or cyanosis. Negative pedal edema noted NEUROLOGICAL: Focused neurological exam showed no significant neurologic deficit. Normal speech, no focal weakness appreciated. PSYCH: Normal mood, normal affect. Judgment and insight within normal limits. SKIN: No significant ecchymosis, rash, ulcerations or signs of pruritus noted. MUSCULOSKELETAL EXAM: No significant joint swelling noted. Results Laboratory Results: 08/07/17 05:31 08/07/17 05:31 08/07/17 08/07/17 08/07/17 05:31 05:31 05:31 WBC 6.7 RBC 5.54 Hgb 16.1 Hct 47.0 MCV 85 MCH 29.0 MCHC 34.2 RDW 15.3 H Plt Count 180 Seg Neutrophils % 66.5 Lymphocytes % 20.6 Monocytes % 10.2 Eosinophils % 2.2 Basophils % 0.5 Absolute Neutrophils 4.5 Absolute Lymphocytes 1.4 Absolute Monocytes 0.7 Absolute Eosinophils 0.1 Absolute Basophils 0.0 Sodium 139.2 Potassium 4.2 Chloride 108 H Carbon Dioxide 21 L Anion Gap 10 BUN 17 Creatinine 1.36 H Est GFR ( Amer) > 60 Est GFR (Non-Af Amer) 53 L Glucose 95 Calcium 9.2 Total Bilirubin 1.3 AST 16 L ALT 27 Alkaline Phosphatase 50 Total Protein 6.9 Albumin 3.9 Triglycerides 82 Cholesterol 182.54 LDL Cholesterol Direct 115 H VLDL Cholesterol 16.4 HDL Cholesterol 47 08/04/17 08/04/17 08/05/17 21:30 21:30 03:35 Creatine Kinase 108 CK-MB (CK-2) 1.44 1.64 Troponin I 0.136 0.168 NT-Pro-B Natriuret Pep 2600 H 08/05/17 08/05/17 08/05/17 03:35 11:11 11:11 Creatine Kinase 108 111 CK-MB (CK-2) 1.83 Troponin I 0.124 NT-Pro-B Natriuret Pep 08/06/17 08/07/17 05:06 05:31 Creatine Kinase CK-MB (CK-2) Troponin I NT-Pro-B Natriuret Pep 967 H 739 EKG Comments: Telemetry strips shows sinus rhythm. No sustained tacky or bradycardia arrhythmias noted. Impressions: Chest X-Ray 08/04/17 14:59 IMPRESSION: Stable cardiomegaly. No active pulmonary disease. Assessment & Plan - Diagnosis (1) Hypertensive emergency Is this a current diagnosis for this admission?: Yes (2) Chest pain Qualifiers: Chest pain type: unspecified Qualified Code(s): R07.9 - Chest pain, unspecified Is this a current diagnosis for this admission?: Yes (3) NSTEMI (non-ST elevated myocardial infarction) Is this a current diagnosis for this admission?: Yes (4) Dyslipidemia Is this a current diagnosis for this admission?: Yes (5) Cardiac defibrillator in situ Is this a current diagnosis for this admission?: Yes (6) Congestive heart failure Is this a current diagnosis for this admission?: Yes (7) Coronary artery disease Qualifiers: Coronary Disease-Associated Artery/Lesion type: unspecified vessel or lesion type Associated angina: angina presence unspecified Is this a current diagnosis for this admission?: Yes (8) Ischemic cardiomyopathy Is this a current diagnosis for this admission?: Yes (9) Type 2 diabetes mellitus Qualifiers: Diabetes mellitus complication status: with unspecified complications Diabetes mellitus retirement insulin use: without retirement use Qualified Code( s): E11.8 - Type 2 diabetes mellitus with unspecified complications Is this a current diagnosis for this admission?: Yes - Notes Notes: Chest pain: Currently stable. Previous stress test report was reviewed. Current stress test results were discussed. Patient tells me that he had coronary artery bypass graft surgery in 2004. His last invasive cardiac procedure was about 2 years ago at [facility] but he had stents placed. Will try to obtain those records. Based on stress test report, have advised aggressive risk factor modification and medical management for the time being. Discussed that it may be worthwhile to consider a heart catheterization should he continued to have anginal symptoms with good control of blood pressure. Non-STEMI: This is based on chest pain and positive troponin I. Probably brought on by supply demand mismatch from severe hypertension but cannot rule out acute coronary syndrome. 2D echo obtained showed LVEF seems improved from last echocardiogram. Continue current medical management. Nuclear stress test results reviewed with the patient. Medical management is being recommended at this point CHF: Currently compensated. Recommend optimization of management of CHF. Coronary artery disease: Currently stable. Medical management is being optimized. Cardiomyopathy: Patient has primary prevention single-chamber defibrillator in place. Diabetes: Recommend adequate management but avoid any hypo-or hyperglycemia. Dyslipidemia: LDL goal is less than 70 in this patient. Will increase Lipitor to total of 80 mg p.o. nightly. May add Zetia if needed. Recommend lipid panel prior to discharge so that we can assess patient's compliance as outpatient. - Time Time with patient: Greater than 35 minutes - Patient was seen multiple times. Patient was seen after the stress test was completed and the results were discussed. These results were also discussed with Dr. Rodrigues. Management plans discussed and medications were reviewed. Patient encouraged to follow-up with me. Medications reviewed and adjusted accordingly: Yes
== END 2017-08-07 19:44 | disposition home or self-care (01) | DRG 281 ==
LOC: ER 14:52 → EH 19:51 → 3W 23:10
PROVIDERS: ADMIT Internal Medicine; ATTEND Internal Medicine
DX: I21.4 Non-ST elevation (NSTEMI) myocardial infarction (principal); I16.1 Hypertensive emergency; I50.9 Heart failure, unspecified; I25.5 Ischemic cardiomyopathy; I11.0 Hypertensive heart disease with heart failure; I25.10 Atherosclerotic heart disease of native coronary artery without angina pectoris; E78.00 Pure hypercholesterolemia, unspecified; J44.9 Chronic obstructive pulmonary disease, unspecified; E11.9 Type 2 diabetes mellitus without complications; K21.9 Gastro-esophageal reflux disease without esophagitis; N40.0 Benign prostatic hyperplasia without lower urinary tract symptoms; I25.2 Old myocardial infarction; Z86.73 Personal history of transient ischemic attack (TIA), and cerebral infarction without residual deficits; Z79.84 Long term (current) use of oral hypoglycemic drugs; Z79.899 Other long term (current) drug therapy; Z95.810 Presence of automatic (implantable) cardiac defibrillator; Z95.1 Presence of aortocoronary bypass graft; Z95.5 Presence of coronary angioplasty implant and graft
CPT/HCPCS: 36415; 71045; 78452; 80048; 80053; 80061; 80076; 82140; 82150; 82550; 82553; 82803; 82962; 83036; 83690; 83735; 83880; 84100; 84439; 84443; 84484; 85025; 85610; 85730; 93005; 93010; 93017; 93306; 94640; 99291; A9500; J0280; J1650; J2785; J3490; J7620; Q9969

== ENCOUNTER 2017-11-06 09:22 | Emergency (ER) | payer MEDICARE, OTHER ==
[2017-11-06] MEDS ORDERED: ASPIRIN 81 MG TABLET, CHEWABLE PO ONE (09:30)
--- NOTE | 2017-11-06 09:38 | ER Document Report ---
ED Medical Screen (RME) - General Chief Complaint: Chest Pain Stated Complaint: CHEST PAIN Mode of Arrival: Ambulatory Information source: Patient, H Records Notes: 67 yr old male multiple stents, CABG, recent NSTEMI in jun with normal stress test, no heart cath since presents with complaints of pressure like pain that wax and wanes since yesterday. pt took 5 nitros today with no relief . Pt of Dr Vishal Faith have greeted and performed a rapid initial assessment of this patient. A comprehensive ED assessment and evaluation of the patient, analysis of test results and completion of the medical decision making process will be conducted by additional ED providers. PHYSICAL EXAMINATION: GENERAL: Well-appearing, well-nourished and in no acute distress. HEAD: Atraumatic, normocephalic. EYES: Pupils equal round extraocular movements intact, conjunctiva are normal. ENT: Nares patent NECK: Normal range of motion LUNGS: No respiratory distress Musculoskeletal: Normal range of motion NEUROLOGICAL: Normal speech, normal gait. PSYCH: Normal mood, normal affect. SKIN: Warm, Dry, normal turgor, no rashes or lesions noted. TRAVEL OUTSIDE OF THE [place] IN LAST 30 DAYS: No - Related Data Allergies/Adverse Reactions: Iodinated Contrast- Oral and IV Dye [IV Dye, Iodine Containing] Allergy ( Verified 01/27/15 06:29) Past Medical History - Past Medical History Cardiac Medical History: Reports: Hx Congestive Heart Failure, Hx Coronary Artery Disease, Hx Heart Attack - [age], Hx Hypercholesterolemia, Hx Hypertension Pulmonary Medical History: Reports: Hx Asthma, Hx Bronchitis, Hx COPD, Hx Pneumonia Neurological Medical History: Reports: Hx Cerebrovascular Accident - 2010. Denies: Hx Seizures Endocrine Medical History: Reports: Hx Diabetes Mellitus Type 2 Renal/ Medical History: Reports: Hx Benign Prostatic Hyperplasia. Denies: Hx Peritoneal Dialysis GI Medical History: Reports: Hx Gastroesophageal Reflux Disease Musculoskeltal Medical History: Denies Hx Arthritis Psychiatric Medical History: Denies: Hx Depression Past Surgical History: Reports: Hx Abdominal Surgery - hernia, Hx Cardiac Catheterization, Hx Cardiac Surgery - 8 stents, bypass sx, defibrilator, Hx Coronary Artery Bypass Graft - x 3, Hx Coronary Stent - x 8, Hx Pacemaker, Hx Tonsillectomy - Immunizations Immunizations up to date: Yes Hx Diphtheria, Pertussis, Tetanus Vaccination: Yes History of Influenza Vaccine for 03/2017 08/2017 Season: No Physical Exam - Vital signs Vitals: Temp Pulse Resp BP Pulse Ox 98.3 F 83 16 176/100 H 98 11/06/17 09:24 11/06/17 09:24 11/06/17 09:24 11/06/17 09:24 11/06/17 09:24 Course - Vital Signs Vital signs: Temp Pulse Resp BP Pulse Ox 98.3 F 83 16 176/100 H 98 11/06/17 09:24 11/06/17 09:24 11/06/17 09:24 11/06/17 09:24 11/06/17 09:24
--- NOTE | 2017-11-06 10:21 | ER Document Report ---
ED General - General Chief Complaint: Chest Pain Stated Complaint: CHEST PAIN Time Seen by Provider: 11/06/17 09:38 Mode of Arrival: Ambulatory TRAVEL OUTSIDE OF THE [place] IN LAST 30 DAYS: No - HPI Notes: Patient is a 67-year-old male with a history of hypertension, coronary artery disease and triple bypass (NSTEMI in June), AICD, type 2 DM who presents to the ED complaining of chest pain intermittently over the last 2 days. Patient states that his chest pain does not radiate. His last episode of chest pain was about 7 hours ago. Patient states that he took multiple doses of nitro which did improve his symptoms. Patient states that he no longer has any chest pain, but wanted to come get checked. Patient states that his last stress test was in August about 2 months ago and was unremarkable at that time. He is otherwise eating and drinking without any difficulties. He is urinating normally and having normal bowel movements. Denies any headache, fever, neck pain, URI, sore throat, palpitations, syncope, cough, shortness of breath, wheeze, dyspnea, abdominal pain, nausea/vomiting/diarrhea, urinary retention, dysuria, hematuria, or rash. - Related Data Allergies/Adverse Reactions: Iodinated Contrast- Oral and IV Dye [IV Dye, Iodine Containing] Allergy ( Verified 01/27/15 06:29) Past Medical History - General Information source: Patient, [facility] Records - Social History Smoking Status: Former Smoker Chew tobacco use (# tins/day): No Frequency of alcohol use: None Drug Abuse: None Family History: Hypertension. denies: CAD Patient has suicidal ideation: No Patient has homicidal ideation: No - Past Medical History Cardiac Medical History: Reports: Hx Congestive Heart Failure, Hx Coronary Artery Disease, Hx Heart Attack - six, Hx Hypercholesterolemia, Hx Hypertension Pulmonary Medical History: Reports: Hx Asthma, Hx Bronchitis, Hx COPD, Hx Pneumonia Neurological Medical History: Reports: Hx Cerebrovascular Accident - 2011. Denies: Hx Seizures Endocrine Medical History: Reports: Hx Diabetes Mellitus Type 2 Renal/ Medical History: Reports: Hx Benign Prostatic Hyperplasia. Denies: Hx Peritoneal Dialysis GI Medical History: Reports: Hx Gastroesophageal Reflux Disease Musculoskeltal Medical History: Denies Hx Arthritis Psychiatric Medical History: Denies: Hx Depression Past Surgical History: Reports: Hx Abdominal Surgery - hernia, Hx Cardiac Catheterization, Hx Cardiac Surgery - 8 stents, bypass sx, defibrilator, Hx Cholecystectomy, Hx Coronary Artery Bypass Graft - x 3, Hx Coronary Stent - x 8 , Hx Pacemaker, Hx Tonsillectomy - Immunizations Immunizations up to date: Yes Hx Diphtheria, Pertussis, Tetanus Vaccination: Yes Hx Pneumococcal Vaccination: 01/30/14 Review of Systems - Review of Systems -: Yes All other systems reviewed and negative Physical Exam - Vital signs Vitals: Temp Pulse Resp BP Pulse Ox 98.3 F 83 16 176/100 H 98 11/06/17 09:24 11/06/17 09:24 11/06/17 09:24 11/06/17 09:24 11/06/17 09:24 - Notes Notes: PHYSICAL EXAMINATION: GENERAL: Well-appearing, well-nourished and in no acute distress. EYES: Pupils equal round and reactive to light, extraocular movements intact, sclera anicteric, conjunctiva are normal. ENT: Nares patent and without discharge. oropharynx clear without exudates. No tonsilar hypertrophy or erythema. Moist mucous membranes. NECK: Normal range of motion, supple without lymphadenopathy Chest: + mild tenderness which correlates with pain described. no flail chest. LUNGS: Breath sounds clear to auscultation bilaterally and equal. No wheezes rales or rhonchi. HEART: Regular rate and rhythm without murmurs, rubs, gallops. ABDOMEN: Soft, nontender, nondistended abdomen. No guarding, no rebound. No masses appreciated. Normal bowel sounds present. No CVA tenderness bilaterally. Musculoskeletal: FROM to passive/active. Strength 5+/5. Caleb neg. Extremities: No cyanosis, clubbing, or edema b/l. Peripheral pulses 2+. Capillary refill less than 3 seconds. NEUROLOGICAL: Normal speech, normal gait. PSYCH: Normal mood, normal affect. SKIN: Warm, Dry, normal turgor, no rashes or lesions noted. Course - Re-evaluation Re-evalutation: 11/06/17 14:42 Recheck on patient. No new concerns or complaints. No chest pain. Tolerating PO. Just took his mid-day hydralazine 25mg. 2nd trop ordered. 11/06/17 16:34 Patient is an afebrile, well-hydrated, 67-year-old male who presents to the ED with chest wall pain and resolved chest pain. Vitals are acceptable. PE is otherwise unremarkable. Patient has no significant tachycardia, tachypnea, or hypoxia. He is nontoxic-appearing. Patient is currently asymptomatic. He is tolerating p.o. without difficulties. Lungs are clear to auscultation bilaterally otherwise. CBC, CMP, cardiac enzymes 2/EKG were unremarkable for any acute pathology. Chest x-ray showed some pulmonary vascular congestion with a BNP of 1230. Patient did receive Lasix and his hydralazine today. Patient has a heart score of 5. I did review this with his PCM Dr. Carroll who told me to call Dr. Alfonso as it is close to 5pm. Spoke with Dr. Alfonso who refused this admission and stated that this patient can now go home. I did emphasize that this patient has a heart score of 5 and reviewed his labs, but he was persistent that this patient can go home. Reviewed with patient who is in agreement at this time, but advised strict return precautions. Patient is aware of the risk and benefit of going home versus admission and his understanding that he could have a heart attack and . Advised recheck with his PCM on Thursday as Thursday is a holiday. Return to the ED with any worsening/concerning symptoms otherwise as reviewed discharge. Patient is in agreement. - Vital Signs Vital signs: Temp Pulse Resp BP Pulse Ox 98.3 F 83 18 179/106 H 97 11/06/17 09:24 11/06/17 09:24 11/06/17 13:01 11/06/17 13:00 11/06/17 13:01 - Laboratory Result Diagrams: 11/06/17 10:46 11/06/17 12:13 Laboratory results interpreted by me: 11/06/17 11/06/17 11/06/17 10:46 12:13 12:13 RBC 6.03 H Hgb 17.3 H Hct 51.7 H RDW 15.3 H Chloride 109 H Direct Bilirubin 0.5 H NT-Pro-B Natriuret Pep 1230 H Discharge - Discharge Clinical Impression: Chest wall pain Chest pain, unspecified Qualifiers: Chest pain type: unspecified Qualified Code(s): R07.9 - Chest pain, unspecified Condition: Stable Disposition: HOME, SELF-CARE Instructions: Chest Wall Pain ([facility]), Chest Pain of Unclear Cause ([facility]) Additional Instructions: Maintain adequate fluid and food intake Take home medications as directed Low sodium/fat diet Exercise regularly Weight control Monitor blood pressure daily and keep a log Monitor symptoms for any acute changes Recheck with your PCM in 3-5 days Consider a follow-up with cardiology Return to the ED with any worsening symptoms and/or development of fever, headache, chest pain, palpitations, syncope, shortness of breath, trouble breathing, abdominal pain, n/v/d, blood in stool/urine, loss of control of bowel /bladder, urinary retention, muscle weakness/paralysis, numbness/tingling, or other worsening symptoms that are concerning to you. Forms: Elevated Blood Pressure Referrals: ROSALBA CARROLL MD [Primary Care Provider] - 11/10/17
--- NOTE | 2017-11-06 10:23 | RADIOLOGY REPORT (SQ) ---
EXAM DESCRIPTION: CHEST SINGLE VIEW COMPLETED DATE/TIME: 11/06/2017 10:04 am REASON FOR STUDY: chest pain COMPARISON: 02/07/2016 EXAM PARAMETERS: NUMBER OF VIEWS: One view. TECHNIQUE: Single frontal radiographic view of the chest acquired. RADIATION DOSE: NA LIMITATIONS: None. FINDINGS: LUNGS AND PLEURA: No opacities, masses or pneumothorax. No pleural effusion. MEDIASTINUM AND HILAR STRUCTURES: No masses. Contour normal. HEART AND VASCULAR STRUCTURES: Cardiac silhouette is enlarged. Pulmonary vascular congestion is pres ent. There is no maddie pulmonary edema. BONES: No acute findings. HARDWARE: Pacemaker/defibrillator. Sternotomy wires. Graft markers. OTHER: No other significant finding. IMPRESSION: Cardiomegaly with pulmonary vascular congestion but no maddie CHF. TECHNICAL DOCUMENTATION: JOB ID: [id number] [employer]- All Rights Reserved Reading location - IP/workstation name: [email or web address]
[2017-11-06 11:02] LABS: ABSOLUTE EOSINOPHILS # (AUTO) 0.2 10^3/uL (0.0-0.6); ABSOLUTE LYMPHOCYTES (AUTO) 1.4 10^3/uL (0.5-4.7); ABSOLUTE MONOCYTES (AUTO) 0.7 10^3/uL (0.1-1.4); ABSOLUTE NEUT (AUTO) 3.3 10^3/uL (1.7-8.2); BASOPHILS % (AUTO) 0.6 % (0-2); EOSINOPHILS % (AUTO) 3.9 % (0-6); HEMATOCRIT 51.7 % (37.9-51.0); HEMOGLOBIN 17.3 g/dL (13.5-17.0); LYMPHOCYTES % (AUTO) 25.2 % (13-45); MEAN CORPUSCULAR HEMOGLOBIN 28.7 pg (27.0-33.4); MEAN CORPUSCULAR HGB CONC 33.5 g/dL (32.0-36.0); MEAN CORPUSCULAR VOLUME 86 fl (80-97); MONOCYTES % (AUTO) 11.6 % (3-13); PLATELET COUNT 180 10^3/uL (150-450); RED BLOOD COUNT 6.03 10^6/uL (4.35-5.55); RED CELL DISTRIBUTION WIDTH 15.3 % (11.5-14.0); SEGMENTED NEUTROPHILS % (AUTO) 58.7 % (42-78); TOTAL CELLS COUNTED % (AUTO) 100 %; WHITE BLOOD COUNT 5.6 10^3/uL (4.0-10.5)
[2017-11-06 12:50] LABS: ALANINE AMINOTRANSFERASE 31 U/L (21-72); ALKALINE PHOSPHATASE 54 U/L (38-126); ANION GAP 12 (5-19); ASPARTATE AMINO TRANSFERASE 20 U/L (17-59); BILIRUBIN,DIRECT 0.5 mg/dL (0.0-0.4); BLOOD UREA NITROGEN 14 mg/dL (7-20); CALCIUM 9.8 mg/dL (8.4-10.2); CARBON DIOXIDE 23 mmol/L (22-30); CHLORIDE 109 mmol/L (98-107); CREATINE KINASE 146 U/L (55-170); GLUCOSE 88 mg/dL (75-110); POTASSIUM 4.2 mmol/L (3.6-5.0); TOTAL PROTEIN 7.2 g/dL (6.3-8.2)
[2017-11-06 12:59] LABS: CREATINE KINASE MB 2.02 ng/mL (<4.55)
[2017-11-06 13:01] LABS: TROPONIN I 0.041 ng/mL
[2017-11-06] MEDS ORDERED: FUROSEMIDE 20 MG TABLET PO ONE (13:06)
--- NOTE | 2017-11-06 13:08 | EKG REPORT ---
SEVERITY:- ABNORMAL ECG - ATRIAL-PACED COMPLEXES LEFT ATRIAL ABNORMALITY RBBB AND LPFB INFERIOR INFARCT, AGE INDETERMINATE CONSIDER ANTERIOR INFARCT : Confirmed by: Chidi Blake MD 06-Nov-2017 13:07:34
--- NOTE | 2017-11-06 13:09 | EKG REPORT ---
SEVERITY:- ABNORMAL ECG - SINUS RHYTHM LEFT ATRIAL ABNORMALITY RBBB AND LPFB INFERIOR INFARCT, OLD CONSIDER ANTERIOR INFARCT : Confirmed by: Chidi Blake MD 06-Nov-2017 13:08:58
[2017-11-06 17:59] VITALS: BP 162/99
--- NOTE | 2017-11-06 18:21 | EKG REPORT ---
SEVERITY:- ABNORMAL ECG - SINUS RHYTHM PROBABLE LEFT ATRIAL ABNORMALITY RBBB AND LPFB INFERIOR INFARCT, AGE INDETERMINATE LATERAL INFARCT, AGE INDETERMINATE CONSIDER ANTERIOR INFARCT : Confirmed by: Chidi Blake MD 06-Nov-2017 18:21:03
== END 2017-11-06 17:59 | disposition home or self-care (01) ==
LOC: ER 09:22
DX: R07.9 Chest pain, unspecified (principal); I10 Essential (primary) hypertension; I25.10 Atherosclerotic heart disease of native coronary artery without angina pectoris; Z95.1 Presence of aortocoronary bypass graft; Z87.891 Personal history of nicotine dependence; Z95.810 Presence of automatic (implantable) cardiac defibrillator; Z90.49 Acquired absence of other specified parts of digestive tract
CPT/HCPCS: 93005; 99285; 36415; 82553; 82550; 85025; 80053; 84484; 83880; 71045; 93010; A9270 ×2

== ENCOUNTER 2017-12-22 14:51 | Day surgery (SDC) | payer MEDICARE ==
[2017-12-22] MEDS ORDERED: NALOXONE HCL INJ/PF 0.4 MG/1 ML SDV ONE (15:54)
[2017-12-22] MEDS ORDERED: ONDANSETRON HCL INJ/PF 4 MG/2 ML SDV ONE (15:54)
[2017-12-22] MEDS ORDERED: DIPHENHYDRAMINE HCL 50 MG/ML VIAL ONE (15:54)
[2017-12-22] MEDS ORDERED: EPINEPHRINE INJ 1 MG/10 ML DISP.SYRIN ONE (15:55)
[2017-12-22] MEDS ORDERED: GLUCAGON,HUMAN RECOMB 1 MG INJ ONE (15:55)
[2017-12-22] MEDS ORDERED: FENTANYL CITRATE INJ/PF 100 MCG/2 ML AMPUL ONE (15:55)
[2017-12-22] MEDS ORDERED: FLUMAZENIL INJ 0.5 MG/5 ML VIAL ONE (15:55)
[2017-12-22] MEDS: MIDAZOLAM 2 MG/2 ML INJ ONE ×2 (17:27→17:31)
--- NOTE | 2017-12-22 18:04 | Operative Report ---
Operative Report DATE OF SURGERY: 12/22/17 Operative Report: Pre-op diagnosis: Colon cancer screening Post-op diagnosis: 1. Polyps in the ascending, transverse, sigmoid colon and the rectum 2. Pancolonic diverticulosis Surgery: Colonoscopy with polypectomy and biopsy Medications: Versed mg, Fentanyl mcg IV push Tissue removed: Procedure: After informed consent obtained from patient, conscious sedation was achieved. A digital rectal examination was performed and this was unremarkable. The colonoscope was inserted into the rectum and advanced to the cecum. The appendiceal orifice and the terminal ileum were both identified. The mucosa was examined into details as the colonoscope was slowly pulled out of the patient. The endoscope was retroflexed in the rectum. Patient tolerated the procedure well. Findings Multiple diverticuli were noted all over the colon Cecum: Normal Ascending colon: 2 mm polyp removed with the biopsy forceps Transverse colon: 4 polyps were removed from the proximal and the mid transverse colon with a hot polypectomy snare Descending colon: Normal Sigmoid colon: Three 5-6mm polyps were removed with a hot snare Rectum: A 5 mm polyp was removed with a hot snare. Patient also had internal hemorrhoids. Plan: Await pathology. Repeat colonoscopy in 3-5 years OPERATION: .
[2017-12-22 18:59] VITALS: BP 185/97
== END 2017-12-22 19:00 | disposition home or self-care (01) ==
LOC: END 14:51
PROVIDERS: ATTEND Internal Medicine Gastroenterology
PROC: 0DBN8ZX Excision of Sigmoid Colon, Via Natural or Artificial Opening Endoscopic, Diagnostic (ICD-10-PCS; 2017-12-22)
PROC: 0DBP8ZX Excision of Rectum, Via Natural or Artificial Opening Endoscopic, Diagnostic (ICD-10-PCS; 2017-12-22)
PROC: 0DBK8ZX Excision of Ascending Colon, Via Natural or Artificial Opening Endoscopic, Diagnostic (ICD-10-PCS; principal; 2017-12-22 15:45)
PROC: 0DBL8ZX Excision of Transverse Colon, Via Natural or Artificial Opening Endoscopic, Diagnostic (ICD-10-PCS; 2017-12-22 15:45)
DX: Z12.11 Encounter for screening for malignant neoplasm of colon (principal); D12.3 Benign neoplasm of transverse colon; D12.5 Benign neoplasm of sigmoid colon; K62.1 Rectal polyp; K63.5 Polyp of colon; K57.30 Diverticulosis of large intestine without perforation or abscess without bleeding; E11.9 Type 2 diabetes mellitus without complications; I11.9 Hypertensive heart disease without heart failure; I51.9 Heart disease, unspecified; Z80.0 Family history of malignant neoplasm of digestive organs; I25.2 Old myocardial infarction; Z95.1 Presence of aortocoronary bypass graft; Z95.810 Presence of automatic (implantable) cardiac defibrillator
CPT/HCPCS: 45380; 45385; 82962; 88305 ×2; J2250; J3010; J0171; J1200; J1610; J2310; J2405; J3490

== ENCOUNTER → 2019-01-18 | Outpatient (CLI) | payer MEDICARE ==
--- NOTE | 2019-01-18 15:43 | RADIOLOGY REPORT (SQ) ---
EXAM DESCRIPTION: U/S RETROPERITON (RENAL/AORTA) COMPLETED DATE/TIME: 01/18/2019 3:17 pm REASON FOR STUDY: N18.3 CHRONIC KIDNEY DISEASE, STAGE 3 (MODERATE) N18.3 CHRONIC KIDNEY DISEASE, ST AGE 3 (MODERATE) COMPARISON: None. TECHNIQUE: Dynamic and static grayscale images acquired of the kidneys and bladder and recorded on P ACS. Additional selected color Doppler and spectral images recorded. LIMITATIONS: None. FINDINGS: RIGHT KIDNEY: Normal size. Normal echogenicity. No solid or suspicious masses. No hydronep hrosis. No calcifications. LEFT KIDNEY: Normal size. Normal echogenicity. No solid or suspicious masses. No hydronephrosis. No calcifications. There is a 3.7 x 3.6 x 3.6 cm simple cyst. BLADDER: No masses. OTHER FINDINGS: No other significant finding. IMPRESSION: Simple left renal cyst. No other significant findings. TECHNICAL DOCUMENTATION: JOB ID: [id number] [employer]- All Rights Reserved Reading location - IP/workstation name: [email or web address]
== END ==
LOC: RAD 14:18
PROVIDERS: ATTEND Internal Medicine
DX: N18.3 Chronic kidney disease, stage 3 (moderate) (principal); N28.1 Cyst of kidney, acquired
CPT/HCPCS: 76770

== ENCOUNTER 2019-04-27 06:47 | Emergency (ER) | payer MEDICARE ==
[2019-04-27] MEDS ORDERED: HEPARIN SODIUM,PORCINE/D5W 25,000 UNIT/250 ML RTUINJ IV ONE (07:14)
[2019-04-27] MEDS ORDERED: HEPARIN SOD (PORCINE) 1,000 UNIT/ML 10 ML VIAL ONE (07:15)
[2019-04-27] MEDS ORDERED: NITROGLYCERIN/D5W 50 MG/250 ML RTUINJ IV ONE (07:16)
[2019-04-27] MEDS ORDERED: HEPARIN SOD (PORCINE) 1,000 UNIT/ML 10 ML VIAL IV ONE (07:20)
[2019-04-27] MEDS ORDERED: HEPARIN SODIUM,PORCINE/D5W 25,000 UNIT/250 ML RTUINJ IV PRN (07:23)
--- NOTE | 2019-04-27 07:34 | ER Document Report ---
ED Cardiac - General Chief Complaint: Chest Pain Stated Complaint: CHEST PAIN/RIGHT ARM PAIN Time Seen by Provider: 04/27/19 06:55 Primary Care Provider: ROSALBA CARROLL MD [Primary Care Provider] - Follow up as needed Mode of Arrival: Ambulatory Information source: Patient TRAVEL OUTSIDE OF THE [place] IN LAST 30 DAYS: No - HPI Notes: Patient presents with chest pain since 1:30 AM this morning. Patient states it radiates to his right arm. He states it has been intermittent. He does not know of anything that makes it better or worse. He states he took 2 nitroglycerin at home without significant change of the pain. He states that the pain is lasting several minutes at a time. Patient had some mild shortness of breath and some mild nausea. He states he also has some numbness in his right arm. He says he has had [address] He also states he has had 3 strokes last one about 3 years ago. Patient denies any cocaine or illicit drug use. He says he is not a smoker. Patient had no vomiting or diarrhea. No recent cough cold or congestion. Says in general he just does not feel well. The pain has been moderate to severe when he has it. - Related Data Allergies/Adverse Reactions: Iodinated Contrast Media [IV Dye, Iodine Containing] Allergy (Verified 12/22/17 15:08) SKIN ROUGH Past Medical History - General Information source: Patient - Social History Smoking Status: Former Smoker Frequency of alcohol use: None Drug Abuse: None Family History: Reviewed & Not Pertinent, Hypertension - Past Medical History Cardiac Medical History: Reports: Hx Congestive Heart Failure, Hx Coronary Artery Disease, Hx Heart Attack - six, Hx Hypercholesterolemia, Hx Hypertension Pulmonary Medical History: Reports: Hx Asthma, Hx Bronchitis, Hx COPD, Hx Pneumonia Neurological Medical History: Reports: Hx Cerebrovascular Accident - 2011. Denies: Hx Seizures Endocrine Medical History: Reports: Hx Diabetes Mellitus Type 2 Renal/ Medical History: Reports: Hx Benign Prostatic Hyperplasia. Denies: Hx Peritoneal Dialysis GI Medical History: Reports: Hx Gastroesophageal Reflux Disease Musculoskeletal Medical History: Denies Hx Arthritis Psychiatric Medical History: Denies: Hx Depression Past Surgical History: Reports: Hx Abdominal Surgery - hernia, Hx Cardiac Catheterization, Hx Cardiac Surgery - 8 stents, bypass sx, defibrilator, Hx Cholecystectomy, Hx Coronary Artery Bypass Graft - x 3, Hx Coronary Stent - x 8, Hx Pacemaker, Hx Tonsillectomy - Immunizations Immunizations up to date: Yes Hx Diphtheria, Pertussis, Tetanus Vaccination: Yes Hx Pneumococcal Vaccination: 01/30/14 Review of Systems - Review of Systems Constitutional: denies: Chills, Fever Cardiovascular: Chest pain. denies: Palpitations Respiratory: Short of breath. denies: Cough Gastrointestinal: denies: Diarrhea, Vomiting -: Yes All other systems reviewed and negative Physical Exam - Vital signs Interpretation: Normal - General General appearance: Appears well, Alert - HEENT Head: Normocephalic, Atraumatic Eyes: Normal Pupils: PERRL - Respiratory Respiratory status: No respiratory distress Chest status: Nontender Breath sounds: Normal Chest palpation: Normal - Cardiovascular Rhythm: Tachycardia Heart sounds: Normal auscultation Murmur: No - Abdominal Inspection: Normal Distension: No distension Bowel sounds: Normal Tenderness: Nontender Organomegaly: No organomegaly - Back Back: Normal, Nontender - Extremities General upper extremity: Normal inspection, Nontender, Normal color, Normal ROM, Normal temperature General lower extremity: Normal inspection, Nontender, Normal color, Normal ROM, Normal temperature, Normal weight bearing. No: Caleb's sign - Neurological Neuro grossly intact: Yes Cognition: Normal Orientation: AAOx4 [place] Coma Scale Eye Opening: Spontaneous Romana Coma Scale Verbal: Oriented Boston Coma Scale Motor: Obeys Commands Boston Coma Scale Total: 15 Speech: Normal Motor strength normal: LUE, RUE, LLE, RLE Sensory: Normal - Psychological Associated symptoms: Normal affect, Normal mood - Skin Skin Temperature: Warm Skin Moisture: Dry Skin Color: Normal Course - Re-evaluation Re-evalutation: 04/27/19 07:36 Patient seen upon arrival. EKG showed acute inferior myocardial infarction. The changes were new compared to old EKG. A STEMI protocol was activated. At this point patient has been given heparin and Plavix and aspirin. He states that he is now pain-free. He was also given a sublingual nitroglycerin here. Patient has one absolute contraindication and 3 relative contraindications to lytics. His absolute at this time is his significantly elevated blood pressure which was approximately 230 systolic. He has been placed on a nitro drip at this time to bring down the blood pressure. He states he is now pain-free. Repeat EKG when the patient is pain-free shows significant decrease of the ST elevation. At this time lytics will not be given because the patient is pain- free, EKG is improving, blood pressure is not within parameters, and patient has 3 relative contraindications. Patient will constantly be reassessed to see if lytics are indicated. Patient is currently awaiting transportation to [facility]. I have spoke with her pool lifeguard and informed him of the patient and the EKG changes. - Diagnostic Test Radiology reviewed: Image reviewed, Reports reviewed - EKG Interpretation by Me EKG shows normal: Sinus rhythm Rate: Tachycardia - 104 Rhythm: NSR Hadley/QRS: RBBB, LAHB/LAFB When compared to previous EKG there are: Changes noted Additional EKG results interpreted by me: 04/27/19 07:[address] elevation in leads II and III with reciprocal depression and multiple leads including 1 and aVL. EKG appears consistent with an acute inferior myocardial infarction. Critical Care Note - Critical Care Note Total time excluding time spent on procedures (mins): 50 Comments: Critical care time on this patient was approximately 50 minutes. This included multiple reassessments for management of his acute myocardial infarction and uncontrolled high blood pressure. It included talking to multiple consultants. It included reviewing imaging and laboratory studies. Discharge - Discharge Clinical Impression: Acute inferior myocardial infarction, Hypertensive emergency Condition: Critical Disposition: [facility] Referrals: ROSALBA CARROLL MD [Primary Care Provider] - Follow up as needed
[2019-04-27] MEDS ORDERED: ASPIRIN 81 MG TABLET, CHEWABLE PO ONE (07:36)
[2019-04-27] MEDS ORDERED: NITROGLYCERIN/D5W 50 MG/250 ML RTUINJ IV PRN (07:37)
[2019-04-27] MEDS ORDERED: NITROGLYCERIN 0.4 MG/TAB 25 TAB/BOTTLE SL ONE (07:40)
[2019-04-27] MEDS ORDERED: CLOPIDOGREL BISULFATE 300 MG TABLET PO ONE (07:41)
--- NOTE | 2019-04-27 07:43 | RADIOLOGY REPORT (SQ) ---
Chest single view on 04/27/2019 at 7:10 AM CLINICAL INDICATION: Chest pain COMPARISON: 11/06/2017 FINDINGS: The patient is status post median sternotomy and CABG. 2-lead left subclavian AICD device is unchanged in position. Cardiomegaly is noted. Mild increased interstitial changes may be chronic in nature versus mild edema. Lungs are otherwise clear. Hilar and mediastinal contours are within normal limits. IMPRESSION: No significant change in the appearance of the chest.
[2019-04-27 07:55] LABS: ABSOLUTE EOSINOPHILS # (AUTO) 0.2 10^3/uL (0.0-0.6); ABSOLUTE LYMPHOCYTES (AUTO) 1.8 10^3/uL (0.5-4.7); ABSOLUTE MONOCYTES (AUTO) 0.6 10^3/uL (0.1-1.4); BASOPHILS % (AUTO) 0.8 % (0-2); EOSINOPHILS % (AUTO) 4.3 % (0-6); HEMATOCRIT 53.7 % (37.9-51.0); HEMOGLOBIN 18.3 g/dL (13.5-17.0); LYMPHOCYTES % (AUTO) 32.6 % (13-45); MEAN CORPUSCULAR HEMOGLOBIN 30.1 pg (27.0-33.4); MEAN CORPUSCULAR VOLUME 89 fl (80-97); MONOCYTES % (AUTO) 9.8 % (3-13); PLATELET COUNT 185 10^3/uL (150-450); RED BLOOD COUNT 6.06 10^6/uL (4.35-5.55); RED CELL DISTRIBUTION WIDTH 14.4 % (11.5-14.0); SEGMENTED NEUTROPHILS % (AUTO) 52.5 % (42-78); TOTAL CELLS COUNTED % (AUTO) 100 %; WHITE BLOOD COUNT 5.6 10^3/uL (4.0-10.5)
[2019-04-27 07:56] LABS: ALBUMIN 4.9 g/dL (3.5-5.0); ALKALINE PHOSPHATASE 59 U/L (38-126); ANION GAP 11 (5-19); ASPARTATE AMINO TRANSFERASE 36 U/L (17-59); BILIRUBIN,DIRECT 0.3 mg/dL (0.0-0.4); BILIRUBIN,TOTAL 1.3 mg/dL (0.2-1.3); BLOOD UREA NITROGEN 17 mg/dL (7-20); CALCIUM 9.8 mg/dL (8.4-10.2); CARBON DIOXIDE 28 mmol/L (22-30); CHLORIDE 100 mmol/L (98-107); CREATINE KINASE 224 U/L (55-170); GLUCOSE 123 mg/dL (75-110); POTASSIUM 4.5 mmol/L (3.6-5.0); TOTAL PROTEIN 8.5 g/dL (6.3-8.2)
[2019-04-27 08:06] LABS: CREATINE KINASE MB 12.1 ng/mL (<4.55)
[2019-04-27 08:12] LABS: TROPONIN I 0.762 ng/mL
[2019-04-27] MEDS ORDERED: ASPIRIN 81 MG TABLET, CHEWABLE ONE (10:57)
[2019-04-27] MEDS ORDERED: CLOPIDOGREL BISULFATE 300 MG TABLET ONE (10:57)
[2019-04-27] MEDS ORDERED: NITROGLYCERIN 0.4 MG/TAB 25 TAB/BOTTLE ONE (10:57)
--- NOTE | 2019-04-27 11:05 | EKG REPORT ---
SEVERITY:- ABNORMAL ECG - SINUS RHYTHM VENTRICULAR TRIGEMINY PROBABLE LEFT ATRIAL ABNORMALITY RBBB AND LPFB ST DEPRESSION, CONSIDER ISCHEMIA, LAT LEADS : Confirmed by: Deepti Soto MD 27-Apr-2019 11:05:01
--- NOTE | 2019-04-27 11:07 | EKG REPORT ---
SEVERITY:- ABNORMAL ECG - SINUS RHYTHM PROBABLE LEFT ATRIAL ABNORMALITY RBBB AND LPFB SIGNATURE FAXED FROM [facility] INFERIOR INFARCT, POSSIBLY ACUTE EXTENSION VERSUS DYSKINETIC NFERIOR WALL.CORELATE CLINICALLY : Confirmed by: Deepti Soto MD 27-Apr-2019 11:07:14
--- NOTE | 2019-04-27 11:08 | EKG REPORT ---
SEVERITY:- ABNORMAL ECG - SINUS TACHYCARDIA LEFT ATRIAL ABNORMALITY RBBB AND LPFB INFERIOR INFARCT ST DEPRESSION, CONSIDER ISCHEMIA, LAT LEADS : Confirmed by: Deepti Soto MD 27-Apr-2019 11:07:52
--- NOTE | 2019-04-27 11:09 | EKG REPORT ---
SEVERITY:- ABNORMAL ECG - SINUS TACHYCARDIA RAJINDER, CONSIDER BIATRIAL ABNORMALITIES RBBB AND LPFB INFERIOR INFARCT, ACUTE ANTEROLATERAL INFARCT, AGE INDETERMINATE : Confirmed by: Deepti Soto MD 27-Apr-2019 11:08:06
== END 2019-04-29 07:49 | disposition short-term general hospital (02) ==
LOC: ER 06:47
DX: I21.9 Acute myocardial infarction, unspecified (principal); I16.0 Hypertensive urgency; R07.9 Chest pain, unspecified; M79.601 Pain in right arm; R06.02 Shortness of breath; R11.0 Nausea; R20.0 Anesthesia of skin; Z87.891 Personal history of nicotine dependence; I50.9 Heart failure, unspecified; I25.10 Atherosclerotic heart disease of native coronary artery without angina pectoris; I11.0 Hypertensive heart disease with heart failure; I25.2 Old myocardial infarction; J44.9 Chronic obstructive pulmonary disease, unspecified; E11.9 Type 2 diabetes mellitus without complications
CPT/HCPCS: 93005; 96376; 99291; 96365; 96368; 36415; 82553; 82550; 85025; 85730; 80053; 84484; 71045; 93010; A9270 ×3; J1644; J3490